=== PATIENT | female | born 1940 | race Caucasian/White ===

== ENCOUNTER 2022-08-20 08:05 | Inpatient (IN) | payer MEDICARE, SELFPAY ==
[2022-08-20] VITALS (9 sets, daily range): BP systolic 115–152; BP diastolic 38–84; PULSE 94–114; RESP 16–20; TEMP 36.7–38.4; O2SAT 92–97; BMI 30.9
--- NOTE | ~2022-08-20 | CT_ITS ---
EXAMINATION: CT HEAD WITHOUT CONTRAST CLINICAL INFORMATION: Left-sided facial droop. Arm weakness. COMPARISON: None. TECHNIQUE: Contiguous axial imaging was performed from the skull base to vertex without intravenous contrast. This CT examination was performed using dose optimization techniques as appropriate, variously including the following: * Automated exposure control * Adjustment of mA and/or kV according to patient size (this includes techniques or standardized protocols for targeted exams where dose is matched to indication/reason for exam; i.e. extremities or head) Use of iterative reconstruction technique DLP: 714 mGy-cm. FINDINGS: There is no evidence of acute intracranial hemorrhage or territorial infarction. No abnormal mass effect or midline shift is seen. Doll to white matter differentiation is well preserved. No extra-axial fluid collections are identified. No hydrocephalus. Proportional prominence of the ventricles and sulcal spaces is consistent with moderate volume loss. Patchy periventricular and deep white matter hypoattenuation is consistent with mild small vessel ischemic changes. The osseous structures and soft tissues are normal. The mastoid air cells and visualized portions of the paranasal sinuses are well aerated. CT/CT head for stroke IMPRESSION: No acute intracranial pathology. This critical result was discussed with RITA Tripathi by telephone at 08/20/2022 8:26 AM and it was ascertained that the content and urgency of the report was understood at the time of direct communication.
--- NOTE | ~2022-08-20 | XR_ITS ---
EXAMINATION: XR CHEST CLINICAL INFORMATION: Stroke symptoms COMPARISON: None TECHNIQUE: Frontal view of the chest was obtained. FINDINGS: Cardiac leads overlie the chest. The lungs are well expanded. No consolidation, edema, or effusion. No pneumothorax. The cardiomediastinal silhouette is normal in size, with a calcified aorta. XR/XR chest 1V IMPRESSION: No acute pulmonary disease.
--- NOTE | ~2022-08-20 | XR_ITS ---
EXAMINATION: XR CHEST CLINICAL INFORMATION: Fever and dyspnea COMPARISON: Previous day TECHNIQUE: Frontal view of the chest was obtained. FINDINGS: Normal symmetric lung volumes. No parenchymal consolidation. No pleural effusion. No pneumothorax. Cardiomediastinal silhouette and pulmonary vascularity are within normal limits. Aorta is atherosclerotic. No acute osseous abnormalities. XR/XR chest 1V IMPRESSION: No acute findings
--- NOTE | 2022-08-20 08:07 | ECG_ITS ---
Test Reason : STROKE/ ALTERED MENTAL Blood Pressure : / mmHG Vent. Rate : 105 BPM Atrial Rate : 105 BPM P-R Int : 122 ms QRS Dur : 074 ms QT Int : 336 ms P-R-T Axes : 063 033 005 degrees QTc Int : 444 ms Poor data quality Sinus tachycardia RSR' or QR pattern in V1 suggests right ventricular conduction delay ST & T wave abnormality, consider inferior ischemia Abnormal ECG No previous ECGs available Referred By: Trinidad Horn Electronically Signed By:NUHA RASHID MD
--- NOTE | 2022-08-20 08:15 | ED_ITS ---
HPI - Neuro Symptoms/Deficit General Chief Complaint: Stroke Stated Complaint: STROKE ALERT,CONF,L WEAK,DROOP,FAST2,[id number],-THIN Source: EMS Mode of arrival: EMS Limitations: physical limitation History of Present Illness HPI Narrative: 82 yo female with dementia, HTN, hypothyroidism brought from home with c/o going to bed okay at 10pm then upon waking told EMS she was not herself and felt her L side of face was drooped with L sided arm weakness. Patient cannot otherwise give a history. daughter was able to tell us that mike's boyfriend states she was weak and almost fell over as well 2 covid shots in 2020 no booster Onset (ago): unknown Last Observed Normal: 22:00 Timing confirmed by: family member Location: left face and left arm History of same: No Severity: mild Quality: weak Relieving factors: none Exacerbating factors: none Context: gradual onset On Anticoagulants: No Associated symptoms: malaise and weakness Treatments Prior to Arrival: none Related Data Allergies Allergy/AdvReac Type Severity Reaction Status Date / Time No Known Allergies Allergy Verified 08/20/22 08:51 Review of Systems Review of Systems: ROS unable to be obtained due to altered mental status [facility] Past Medical History Medical History AD (Alzheimer's disease) HTN (hypertension) Hypothyroidism Social History Social History (Updated 08/20/22 @ 08:16 by Trinidad Horn DO) Alcohol intake: never Patient Tobacco Use Status: Tobacco use Unknown Smoked in Last 30 Days: No Use of substances other than those prescribed or required for medical reasons: No Advance Directives: No Physical Exam Vital Signs: Vital Signs: Last Vital Signs Temp 101.0 F H 08/20/22 08:38 Pulse 108 H 08/20/22 10:15 Resp 20 08/20/22 10:15 BP 142/62 H 08/20/22 10:15 Pulse Ox 96 08/20/22 10:15 O2 Del Method 08/20/22 10:15 BMI result Body Mass Index 30.9 Appearance: Alert. Confused, anxious mild No acute distress. Eyes: Pupils equal, round and reactive to light. ENT: Pharynx normal. atraumatic Neck: Normal inspection. Neck supple. CVS: Normal heart rate and rhythm. Pulses normal. Respiratory: No respiratory distress. Breath sounds normal. Abdomen: Soft and nontender. Skin: Skin warm to touch and dry. Normal skin color. Normal skin turgor. Extremities: No lower extremity edema. Neuro: cannot really participate in exam. no obvious facial droop, she is awake but just moaning. she is able to squeeze both hands R 5/5 L 4+/5 LE seem equal otherwise her exam is very unreliable Course Course Course Narrative: COVID + empiric ceftriaxone ordered suspect her presentation due to infection and not stroke MDM - Neuro Symptoms/Deficit MDM Narrative Medical decision making narrative: 82 yo female with hx of dementia, HTN, hypothyroidism here with AMS, possible L sided weakness with last known well at 10pm - given this she is out of the windo w of tPa. She feels hot to the touch so this could be infectious as well. Will need CT head, labs, cultures, CXR and UA. I do not have prior kidney function on her so CTA is pending Cr - LVO seems unlikely given minimal deficits on exam and she is very hard to get to participate so part of her NIH score is due to her dementia and inability to perform neuro exam. Lab Data Result diagrams: 08/20/22 09:00 08/20/22 09:00 Labs: Lab Results 08/20/22 08/20/22 08/20/22 Range/Units 08:31 08:33 09:00 WBC 11.2 H (4.8-10.8) X10*3/uL RBC 4.01 L (4.20-5.50) X10*6/uL Hgb 12.2 (12.0-16.0) g/dl Hct 37.0 (37.0-47.0) % MCV 92.3 (80.0-98.0) fL MCH 30.4 (27.0-33.0) pg MCHC 33.0 (31.0-35.0) g/dl RDW 12.5 (11.0-16.0) % Plt Count 305 (160-400) X10*3/uL MPV 9.6 (9.4-12.3) fL Immature Gran % (Auto) 0.4 (0.0-0.4) % Neut % (Auto) 81.8 H (45-73) % Lymph % (Auto) 7.8 L (20-40) % [place] % (Auto) 8.9 (2-11) % Eos % (Auto) 0.8 (0-4) % Baso % (Auto) 0.3 (0-2) % Lymph # (Auto) 0.9 L (1.2-4.9) X10*3/uL [place] # (Auto) 1.0 (0.1-1.2) X10*3/uL Eos # (Auto) 0.1 (0.0-0.4) X10*3/uL Baso # (Auto) 0.0 (0.0-0.2) X10*3/uL Abs Immat Gran (auto) 0.05 H (0.00-0.03) X10*3/uL Absolute Neuts (auto) 9.2 H (2.0-8.3) x10*3/uL Absolute Nucleated RBC 0.000 (0.0-0.012) X10*3/uL Nucleated RBC % (auto) 0.0 (0.0-0.2) /100WBC PT (10.0-13.1) SEC Whole Blood PT 12.6 (11.1-13.5) sec INR (0.9-1.1) Whole Blood INR 1.1 (0.9-1.1) APTT (26.0-36.4) SEC Sodium (135-145) mmol/L Potassium (3.3-5.1) mmol/L Chloride (96-108) mmol/L Carbon Dioxide (22-29) mmol/L Anion Gap (12-20) BUN (9-16) mg/dL Creatinine (0.5-1.4) mg/dL Estim Creat Clear Calc Estimated GFR POC Glucose 117 H (60-115) mg/dL Random Glucose (60-115) mg/dL Lactic Acid (0.5-2.0) mmol/L Calcium (8.4-10.2) mg/dL Magnesium (1.6-2.6) mg/dL Total Bilirubin (0.0-1.0) mg/dL Direct Bilirubin (0.0-0.5) mg/dL AST (5-31) U/L ALT (0-31) U/L Alkaline Phosphatase (39-117) U/L Total Creatine Kinase (26-140) U/L Troponin I High Sens (<3.5-17.0) ng/L Total Protein (6.5-8.0) g/dL Albumin (3.5-5.0) g/dL Urine Color Urine Appearance Urine pH (5.0-9.0) Ur Specific [place] (1.005-1.025) Urine Protein (Neg-Trace) mg/dL Urine Glucose (UA) (Negative) mg/dL Urine Ketones (Negative) mg/dL Urine Blood (Negative) Urine Nitrite (Negative) Ur Leukocyte Esterase (Negative) COVID-19 ([facility]) (Negative) COVID-19 Clin Com 08/20/22 08/20/22 08/20/22 Range/Units 09:00 09:00 09:00 WBC (4.8-10.8) X10*3/uL RBC (4.20-5.50) X10*6/uL Hgb (12.0-16.0) g/dl Hct (37.0-47.0) % MCV (80.0-98.0) fL MCH (27.0-33.0) pg MCHC (31.0-35.0) g/dl RDW (11.0-16.0) % Plt Count (160-400) X10*3/uL MPV (9.4-12.3) fL Immature Gran % (Auto) (0.0-0.4) % Neut % (Auto) (45-73) % Lymph % (Auto) (20-40) % [place] % (Auto) (2-11) % Eos % (Auto) (0-4) % Baso % (Auto) (0-2) % Lymph # (Auto) (1.2-4.9) X10*3/uL [place] # (Auto) (0.1-1.2) X10*3/uL Eos # (Auto) (0.0-0.4) X10*3/uL Baso # (Auto) (0.0-0.2) X10*3/uL Abs Immat Gran (auto) (0.00-0.03) X10*3/uL Absolute Neuts (auto) (2.0-8.3) x10*3/uL Absolute Nucleated RBC (0.0-0.012) X10*3/uL Nucleated RBC % (auto) (0.0-0.2) /100WBC PT (10.0-13.1) SEC Whole Blood PT (11.1-13.5) sec INR (0.9-1.1) Whole Blood INR (0.9-1.1) APTT (26.0-36.4) SEC Sodium 137 (135-145) mmol/L Potassium 4.0 (3.3-5.1) mmol/L Chloride 99 (96-108) mmol/L Carbon Dioxide 27 (22-29) mmol/L Anion Gap 15 (12-20) BUN 25 H (9-16) mg/dL Creatinine 1.13 (0.5-1.4) mg/dL Estim Creat Clear Calc 36.6 Estimated GFR 46 POC Glucose (60-115) mg/dL Random Glucose 120 H (60-115) mg/dL Lactic Acid (0.5-2.0) mmol/L Calcium 9.6 (8.4-10.2) mg/dL Magnesium 2.0 (1.6-2.6) mg/dL Total Bilirubin 0.4 (0.0-1.0) mg/dL Direct Bilirubin 0.2 (0.0-0.5) mg/dL AST 19 (5-31) U/L ALT 13 (0-31) U/L Alkaline Phosphatase 86 (39-117) U/L Total Creatine Kinase 46 (26-140) U/L Troponin I High Sens 4.5 (<3.5-17.0) ng/L Total Protein 7.9 (6.5-8.0) g/dL Albumin 4.3 (3.5-5.0) g/dL Urine Color Urine Appearance Urine pH (5.0-9.0) Ur Specific [place] (1.005-1.025) Urine Protein (Neg-Trace) mg/dL Urine Glucose (UA) (Negative) mg/dL Urine Ketones (Negative) mg/dL Urine Blood (Negative) Urine Nitrite (Negative) Ur Leukocyte Esterase (Negative) COVID-19 ([facility]) Positive A (Negative) COVID-19 Clin Com See Note 08/20/22 08/20/22 08/20/22 Range/Units 09:00 09:22 10:27 WBC (4.8-10.8) X10*3/uL RBC (4.20-5.50) X10*6/uL Hgb (12.0-16.0) g/dl Hct (37.0-47.0) % MCV (80.0-98.0) fL MCH (27.0-33.0) pg MCHC (31.0-35.0) g/dl RDW (11.0-16.0) % Plt Count (160-400) X10*3/uL MPV (9.4-12.3) fL Immature Gran % (Auto) (0.0-0.4) % Neut % (Auto) (45-73) % Lymph % (Auto) (20-40) % [place] % (Auto) (2-11) % Eos % (Auto) (0-4) % Baso % (Auto) (0-2) % Lymph # (Auto) (1.2-4.9) X10*3/uL [place] # (Auto) (0.1-1.2) X10*3/uL Eos # (Auto) (0.0-0.4) X10*3/uL Baso # (Auto) (0.0-0.2) X10*3/uL Abs Immat Gran (auto) (0.00-0.03) X10*3/uL Absolute Neuts (auto) (2.0-8.3) x10*3/uL Absolute Nucleated RBC (0.0-0.012) X10*3/uL Nucleated RBC % (auto) (0.0-0.2) /100WBC PT 11.0 (10.0-13.1) SEC Whole Blood PT (11.1-13.5) sec INR 1.0 (0.9-1.1) Whole Blood INR (0.9-1.1) APTT 25.5 L (26.0-36.4) SEC Sodium (135-145) mmol/L Potassium (3.3-5.1) mmol/L Chloride (96-108) mmol/L Carbon Dioxide (22-29) mmol/L Anion Gap (12-20) BUN (9-16) mg/dL Creatinine (0.5-1.4) mg/dL Estim Creat Clear Calc Estimated GFR POC Glucose (60-115) mg/dL Random Glucose (60-115) mg/dL Lactic Acid 1.0 (0.5-2.0) mmol/L Calcium (8.4-10.2) mg/dL Magnesium (1.6-2.6) mg/dL Total Bilirubin (0.0-1.0) mg/dL Direct Bilirubin (0.0-0.5) mg/dL AST (5-31) U/L ALT (0-31) U/L Alkaline Phosphatase (39-117) U/L Total Creatine Kinase (26-140) U/L Troponin I High Sens (<3.5-17.0) ng/L Total Protein (6.5-8.0) g/dL Albumin (3.5-5.0) g/dL Urine Color Yellow Urine Appearance Turbid Urine pH 6.5 (5.0-9.0) Ur Specific [place] 1.015 (1.005-1.025) Urine Protein 30 (1+) H (Neg-Trace) mg/dL Urine Glucose (UA) Negative (Negative) mg/dL Urine Ketones Negative (Negative) mg/dL Urine Blood Small (1+) H (Negative) Urine Nitrite Positive H (Negative) Ur Leukocyte Esterase Large (3+) H (Negative) COVID-19 ([facility]) (Negative) COVID-19 Clin Com ECG Data Attestation: I personally reviewed and interpreted this ECG as follows: ECG interpretation date: 08/20/22 ECG interpretation time: 09:13 Interpretation: Rate: 105 Rhythm: sinus tach [place]: normal Normal P waves. Normal CLAU. Normal QRS complex. ST T wave : nonspecific no UDAY artifact noted qTC: normal prior studies: no acute ischemia The study has been interpreted contemporaneously by me. . NIH Stroke Scale Internal: Initial- Upon Arrival Level of Consciousness: Alert Level of Consciousness Questions: Answers neither question correctly Level of Consciousness Commands: Performs one task correctly Best Gaze: Normal Visual: No visual loss Facial Palsy: Normal Motor Arm (Right): No drift Motor Arm (Left): Drift Motor Leg (Right): No drift Motor Leg (Left): No drift Limb Ataxia: Absent Sensory: Normal Best Language: Mild to moderate aphasia Dysarthia: Normal Extinction and Inattention: Visual, tactile, auditory, spatial, or personal inattention Score: 6 Discharge Plan Discharge Clinical Impression: Acute UTI, COVID-19, Acute encephalopathy Fever Qualifiers: Fever type: unspecified Qualified Code(s): R50.9 - Fever, unspecified Patient Disposition: Admitted As Inpatient
[2022-08-20 08:36] LABS: Prothrombin Time Whole Bld POC 12.6 sec (11.1-13.5); ~PT, ~INR - Anti Coag Clinic 1.1 (0.9-1.1)
[2022-08-20 08:37] LABS: Glucose, Whole Blood 117 mg/dL (60-115)
[2022-08-20 09:06] LABS: MANUAL DIFF FLAG NO
[2022-08-20 09:08] LABS: Basophils Percent Auto 0.3 % (0-2); Eosinophils Absolute Auto 0.1 X10*3/uL (0.0-0.4); Eosinophils Percent Auto 0.8 % (0-4); Hemoglobin 12.2 g/dl (12.0-16.0); Imm Gran Abs Auto 0.05 X10*3/uL (0.00-0.03); Imm Gran Pct Auto 0.4 % (0.0-0.4); Lymphocytes Absolute Auto 0.9 X10*3/uL (1.2-4.9); Lymphocytes Percent Auto 7.8 % (20-40); Mean Corpuscular Hemoglobin 30.4 pg (27.0-33.0); Mean Corpuscular Volume 92.3 fL (80.0-98.0); Mean Platelet Volume 9.6 fL (9.4-12.3); Monocytes Percent Auto 8.9 % (2-11); Neutrophils Absolute Auto 9.2 x10*3/uL (2.0-8.3); Neutrophils Percent Auto 81.8 % (45-73); Platelet Count 305 X10*3/uL (160-400); Red Blood Count 4.01 X10*6/uL (4.20-5.50); Red Cell Distribution Width 12.5 % (11.0-16.0); White Blood Count 11.2 X10*3/uL (4.8-10.8)
[2022-08-20 09:17] LABS: COVID-19 Test Positive (Negative); IDNOW Serial# 55D5AD1C; Partial Thromboplastin Time 25.5 SEC (26.0-36.4)
[2022-08-20 09:27] LABS: Alanine Aminotransferase 13 U/L (0-31); Albumin Level 4.3 g/dL (3.5-5.0); Alkaline Phosphatase 86 U/L (39-117); Anion Gap 15 (12-20); Aspartate Amino Transferase 19 U/L (5-31); Bilirubin Direct 0.2 mg/dL (0.0-0.5); Bilirubin Total 0.4 mg/dL (0.0-1.0); Blood Urea Nitrogen 25 mg/dL (9-16); Calcium 9.6 mg/dL (8.4-10.2); Carbon Dioxide 27 mmol/L (22-29); Chloride 99 mmol/L (96-108); Creatinine Clr Calc Pharmacy 36.6; Estimated Glomerular Filt Rate 46; Glucose Random 120 mg/dL (60-115); Sodium 137 mmol/L (135-145); Total Protein 7.9 g/dL (6.5-8.0)
[2022-08-20 09:33] LABS: Troponin-I High Sensitivity 4.5 ng/L (<3.5-17.0)
[2022-08-20] MEDS: Acetaminophen Oral Liquid 650 MG/20.3 ML SOLUTION PO (10:18)
[2022-08-20] MEDS: cefTRIAXone sodium 1 GM in 0.9 % Sodium Chloride 50 ML IV (10:29)
[2022-08-20 11:02] LABS: Appearance Urine Turbid; Color Urine Yellow; Glucose Urine UA Negative (Negative); Leukocyte Esterase Urine Large (3+) (Negative); Nitrite Urine Positive (Negative); PH 6.5 (5.0-9.0); Specific Gravity - Urine 1.015 (1.005-1.025); UMIC TRIGGER UACC YES; Urine Blood Small (1+) (Negative); Urine Ketones Negative (Negative); Urine Protein 30 (1+) mg/dL (Neg-Trace)
[2022-08-20 11:21] LABS: Bacteria Urine 4+ (None Seen); Hyaline Casts Urine 0-2 /LPF (0-2); Squamous Epithelial Cell Urine 0-2 /HPF (0-2); UACC Culture Trigger YES; WBC Urine >50 /HPF (0-5)
[2022-08-20 11:42] LABS: Glucose, Whole Blood 126 mg/dL (60-115)
--- NOTE | 2022-08-20 12:03 | PHA.MEDREC ---
Pharmacy Consult ? Medication Reconciliation Pharmacy has completed the medication reconciliation. Spoke to pt's daughter Brittaney who listed the only two medications she takes.
--- NOTE | 2022-08-20 13:35 | PC.NURSE ---
pt requested to urinate. placed a periwick at the time. pt did not tolerate having the periwick - pulled it out. assisted to bedside commode, pt did well up to commode with 1x assist. per daughter - pt not always able to vocalize when she needs to pee.
--- NOTE | 2022-08-20 13:38 | PM.IMHP ---
History of Present Illness Date of Service: 08/20/22 Attending physician on admission: Katie Yates Chief Complaint: ams, fall 82-year-old female with history of hypertension, hypothyroidism, and advanced dementia without behavioral disturbance brought to the ED early this morning via EMS due to weakness and near fall. The patient daughter who is her healthcare proxy is at bedside and it provides most of the history. The patient was at home this morning with her boyfriend and woke this morning feeling unlike herself. She stated that she felt the left side of her face was drooped with left-sided weakness. However this note was not noted by the patient's boyfriend her daughter who reported that she was weak and nearly fell over. Last known well time was 22:00 last night when she went to bed. Her daughter also states that she has been exhibiting behavioral aggression x3 days which is not her baseline. On arrival to ED, patient was febrile to 101.0 and tachycardic to 110. There is no tachypnea or hypoxia. Head CT negative for any acute intracranial abnormality. Mild leukocytosis of 11.2. Creatinine 1.13, BUN 25 with creatinine clearance 36.6. Electrolytes normal. Troponin 4.5. Urinalysis showed 3+ leukocytes, nitrite positive, 1+ blood, 4+ bacteria. She was also noted to be positive for COVID-19. Chest x-ray unremarkable. Patient is noted to have a slight cough by her daughter but states this is the 1st day. Patient is not the best historian secondary to her dementia but does deny any fevers, chills, sore throat, headache, nasal congestion, abdominal pain, nausea, vomiting, diarrhea, shortness of breath, or chest pain. No dysuria, hematuria, increased urinary frequency, or incontinence. She was not noted to have any focal neural deficits in the ED and there was very low concern for any large vessel occlusion. The patient is vaccinated against COVID-19 x2 but has not received booster. Patient be admitted for treatment of UTI with severe sepsis with metabolic encephalopathy and COVID-19. In the ED, she has been given acetaminophen and 1 g ceftriaxone. Review of Systems Review of Systems: General: No fevers, malaise, unintentional weight loss HEENT: No blurred vision, diplopia. No sore throat, nasal congestion, rhinorrhea, sinus pain, ear pain Cardiovascular: No chest pain, palpitations, or leg edema Respiratory: +cough, No shortness of breath, wheezing GI: No abdominal pain, nausea, vomiting, diarrhea, constipation, melena, hematochezia : No dysuria, hematuria, increased urinary frequency, decreased urinary output MSK: No myalgia, back pain Neuro: + generalized weakness, + balance and coordination issues, +ams. No headaches or lightheadedness Skin: No rashes or lesions [facility] Medical History (Updated 08/20/22 @ 13:47 by RITA Strickland) AD (Alzheimer's disease) HTN (hypertension) Hypothyroidism Family History Mother CAD (coronary artery disease) Father CAD (coronary artery disease) Social History Alcohol intake: never Patient Tobacco Use Status: Tobacco use Unknown Smoked in Last 30 Days: No Use of substances other than those prescribed or required for medical reasons: No Advance Directives: No Meds Allergies Allergy/AdvReac Type Severity Reaction Status Date / Time No Known Allergies Allergy Verified 08/20/22 08:51 Active Medications: Current Medications Pharmacy Consult (Consult Rx Perform Med Rec) 1 each MISCELLANE ONCE PRN PRN Reason: Consult order Home Medications Medication Instructions Recorded Confirmed Last Taken Type amlodipine 5 mg tablet 1 tab PO DAILY 08/20/22 08/20/22 08/19/22 History levothyroxine 100 mcg tablet 1 tab PO DAILY@0600 08/20/22 08/20/22 08/19/22 History Physical Exam Vital Signs and Narrative: Vital Signs: Last Vital Signs Temp 98.1 F 08/20/22 13:34 Pulse 108 H 08/20/22 11:24 Resp 16 08/20/22 11:24 BP 138/70 08/20/22 11:24 Pulse Ox 92 08/20/22 11:24 O2 Del Method 08/20/22 11:24 BMI result Body Mass Index 30.9 Constitutional - Awake and Alert, No apparent distress Eyes - PERRLA, EOMI Cardiovascular - S1S2, RRR, No edema Respiratory - Normal lung expansion, Normal respiratory effort, No respiratory distress, CTA bilaterally Gastrointestinal - NT / ND; +BS; No rebound or guarding - No CVA tenderness Extremities - no calf tenderness bilaterally, no swelling Musculoskeletal - Normal inspection, normal ROM Skin - Warm/Dry Neurological - Alert, aggitated, & oriented to self, CN II-XII in tact, 4/5 strength BUE and BLE Results Labs CBC and Chem 7: 08/20/22 09:00 08/20/22 09:00 Labs: Laboratory Results - last 24 hr 08/20/22 08/20/22 08/20/22 08:31 08:33 09:00 MCV 92.3 MCH 30.4 MCHC 33.0 RDW 12.5 Plt Count 305 MPV 9.6 Immature Gran % (Auto) 0.4 Neut % (Auto) 81.8 H Lymph % (Auto) 7.8 L [place] % (Auto) 8.9 Eos % (Auto) 0.8 Baso % (Auto) 0.3 Lymph # (Auto) 0.9 L [place] # (Auto) 1.0 Eos # (Auto) 0.1 Baso # (Auto) 0.0 Abs Immat Gran (auto) 0.05 H Absolute Neuts (auto) 9.2 H Absolute Nucleated RBC 0.000 Nucleated RBC % (auto) 0.0 PT Whole Blood PT 12.6 INR Whole Blood INR 1.1 APTT Anion Gap Estim Creat Clear Calc Estimated GFR POC Glucose 117 H Random Glucose Lactic Acid Calcium Magnesium Total Bilirubin Direct Bilirubin AST ALT Alkaline Phosphatase Total Creatine Kinase Troponin I High Sens Total Protein Albumin Urine Color Urine Appearance Urine pH Ur Specific [place] Urine Protein Urine Glucose (UA) Urine Ketones Urine Blood Urine Nitrite Ur Leukocyte Esterase Urine RBC Urine WBC Ur Squamous Epith Cells Urine Bacteria Hyaline Casts COVID-19 ([facility]) COVID-19 Clin Com 08/20/22 08/20/22 08/20/22 09:00 09:00 09:00 MCV MCH MCHC RDW Plt Count MPV Immature Gran % (Auto) Neut % (Auto) Lymph % (Auto) [place] % (Auto) Eos % (Auto) Baso % (Auto) Lymph # (Auto) [place] # (Auto) Eos # (Auto) Baso # (Auto) Abs Immat Gran (auto) Absolute Neuts (auto) Absolute Nucleated RBC Nucleated RBC % (auto) PT Whole Blood PT INR Whole Blood INR APTT Anion Gap 15 Estim Creat Clear Calc 36.6 Estimated GFR 46 POC Glucose Random Glucose 120 H Lactic Acid Calcium 9.6 Magnesium 2.0 Total Bilirubin 0.4 Direct Bilirubin 0.2 AST 19 ALT 13 Alkaline Phosphatase 86 Total Creatine Kinase 46 Troponin I High Sens 4.5 Total Protein 7.9 Albumin 4.3 Urine Color Urine Appearance Urine pH Ur Specific [place] Urine Protein Urine Glucose (UA) Urine Ketones Urine Blood Urine Nitrite Ur Leukocyte Esterase Urine RBC Urine WBC Ur Squamous Epith Cells Urine Bacteria Hyaline Casts COVID-19 ([facility]) Positive A COVID-19 Clin Com See Note 08/20/22 08/20/22 08/20/22 09:00 09:22 10:27 MCV MCH MCHC RDW Plt Count MPV Immature Gran % (Auto) Neut % (Auto) Lymph % (Auto) [place] % (Auto) Eos % (Auto) Baso % (Auto) Lymph # (Auto) [place] # (Auto) Eos # (Auto) Baso # (Auto) Abs Immat Gran (auto) Absolute Neuts (auto) Absolute Nucleated RBC Nucleated RBC % (auto) PT 11.0 Whole Blood PT INR 1.0 Whole Blood INR APTT 25.5 L Anion Gap Estim Creat Clear Calc Estimated GFR POC Glucose Random Glucose Lactic Acid 1.0 Calcium Magnesium Total Bilirubin Direct Bilirubin AST ALT Alkaline Phosphatase Total Creatine Kinase Troponin I High Sens Total Protein Albumin Urine Color Yellow Urine Appearance Turbid Urine pH 6.5 Ur Specific [place] 1.015 Urine Protein 30 (1+) H Urine Glucose (UA) Negative Urine Ketones Negative Urine Blood Small (1+) H Urine Nitrite Positive H Ur Leukocyte Esterase Large (3+) H Urine RBC 3-5 H Urine WBC >50 H Ur Squamous Epith Cells 0-2 Urine Bacteria 4+ Hyaline Casts 0-2 COVID-19 ([facility]) COVID-19 Clin Com 08/20/22 11:30 MCV MCH MCHC RDW Plt Count MPV Immature Gran % (Auto) Neut % (Auto) Lymph % (Auto) [place] % (Auto) Eos % (Auto) Baso % (Auto) Lymph # (Auto) [place] # (Auto) Eos # (Auto) Baso # (Auto) Abs Immat Gran (auto) Absolute Neuts (auto) Absolute Nucleated RBC Nucleated RBC % (auto) PT Whole Blood PT INR Whole Blood INR APTT Anion Gap Estim Creat Clear Calc Estimated GFR POC Glucose 126 H Random Glucose Lactic Acid Calcium Magnesium Total Bilirubin Direct Bilirubin AST ALT Alkaline Phosphatase Total Creatine Kinase Troponin I High Sens Total Protein Albumin Urine Color Urine Appearance Urine pH Ur Specific [place] Urine Protein Urine Glucose (UA) Urine Ketones Urine Blood Urine Nitrite Ur Leukocyte Esterase Urine RBC Urine WBC Ur Squamous Epith Cells Urine Bacteria Hyaline Casts COVID-19 ([facility]) COVID-19 Clin Com Imaging Radiologist's Impressions: Impressions Head CT 08/20/22 08:14 IMPRESSION: No acute intracranial pathology. This critical result was discussed with RITA Tripathi by telephone at 08/20/2022 8:26 AM and it was ascertained that the content and urgency of the report was understood at the time of direct communication. Chest X-Ray 08/20/22 09:00 IMPRESSION: No acute pulmonary disease. Assessment and Plan (1) Severe sepsis: Status: Acute (2) Acute UTI: Status: Acute (3) COVID-19: Status: Acute (4) Acute encephalopathy: Status: Acute Plan 82-year-old female with history of hypertension, hypothyroidism, and advanced dementia without behavioral disturbance admitted for UTI with severe sepsis with metabolic encephalopathy and found to have COVID-19. # severe sepsis related to UTI -febrile to 101.1, tachycardic to 110 - patient remains tachycardic despite fever breaking, with AMS. WBC 11.3, lactic acid normal -Treat UTI per below -IVF with NS -admit to telemetry -follow cultures # acute UTI -UA with 3+ leukocytes, 1+ blood, nitrite positive, 4+ bacteria -follow urine culture and blood cultures -continue IV ceftriaxone x7 days -renal function appears stable with creatinine of 1.13, BUN 25, baseline available -monitor I&O -follow BMP -leukocytosis 11.3. Follow CBC # metabolic encephalopathy likely secondary to sepsis and UTI -patient has exhibited increased confusion and aggression from baseline per her daughter ongoing for 2 days -continue IVF as above -monitor mental status -treat infection as above -Eats soft diet at home she is edentulous. Daughter denies any difficulty swallowing. Soft regular diet # COVID-19 -patient with mild symptoms -IV remdesivir not indicated. IV steroids not indicated -symptomatic management with Tylenol p.r.n. for fever, guaifenesin her Tessalon Perles for cough # hypertension-controlled -continue amlodipine # hypothyroidism -continue levothyroxine -TSH level pending # Alzheimer's disease- increased behavioral disturbance from baseline -p.r.n. Zyprexa as needed for agitation/aggression DVT prophylaxis-Lovenox DNR/DNI per her daughter who is her healthcare proxy Patient requires inpatient stay of at least 2 midnights due to acute UTI with severe sepsis with metabolic encephalopathy requiring IV antibiotics, close cardiac monitoring to prevent decompensation into septic shock. Will also require PT evaluation and possible home services versus placement to [facility]. Quality Stroke Does the patient have a stroke diagnosis?: No VTE Prior VTE?: No VTE Risk Level:: Medical - moderate - high VTE Device Contraindication: Treatment Not Indicated VTE Drug Contraindication: N/A - Med Ordered
[2022-08-20] MEDS: 0.9 % Sodium Chloride 1,000 ML 100 ML IVCONT ×2 (13:49→23:17)
[2022-08-20] MEDS: Enoxaparin Sodium 40 MG/0.4 ML SYRINGE SUBCUT (13:54)
[2022-08-20] MEDS: Acetaminophen 325 MG TABLET 650 MG PO (17:28)
--- NOTE | 2022-08-20 17:32 | PC.NURSE ---
pt with increased AMS - closing her R eye, unable to follow commands, increasing restlessness. MD Figueredo made aware, request for rectal tylenol as pt chewing PO tylenol and not able to follow command to swallow pill and drink water. chnage to orders made. will continue to monitor.m
--- NOTE | 2022-08-20 17:40 | PM.EVENT ---
Event Note Date of Service: 08/20/22 Event Note: Message received from nursing staff and patient has rectal temp of 101.2 degrees with increased weakness and altered mental status very restless. Ceftriaxone changed to Zosyn to cover for resistant bacteria and 975 mg Tylenol [place] are ordered. She is NPO for now. Patient has been urinating in commode.
[2022-08-20] MEDS: Acetaminophen Supp 325 MG SUPP.RECT 975 MG PR (19:23)
[2022-08-20] MEDS: Piperacillin Sodium/Tazobactam 2.25 GM in 0.9 % Sodium Chloride 50 ML IV (19:24)
--- NOTE | 2022-08-20 19:41 | PC.NURSE ---
assumed care of patient at 1900. introduced self to patient and pt daughter. patient laying on stretcher, warm to touch, mumbling and groaning but not making sense. dementia at baseline but very altered per daughter. tylenol rectal given to patient per provider orders because per previous RN, patient did not receive po tylenol due to chewing it and spitting it up. patient npo because of this inability to properly chew and swallow. pt on monitor technician, antibiotic started. pt repositioned in bed, call maurer within reach. will continue to monitor
--- NOTE | 2022-08-20 20:40 | PC.NURSE ---
pt was inc of urine ,jose de jesus care given purewick in place ,pt is very restless .
[2022-08-20] MEDS: Benzonatate 100 MG CAPSULE PO (21:20)
--- NOTE | 2022-08-20 22:13 | MHC.CM.PN ---
Addendum entered by Ayse Wallace 08/20/22 22:16: Brittaney Crane [phone]. No HCP on file. Original Note: Attempted to meet with patient, however patient sleeping with telesitter. HX advanced dementia. CM will need to speak with Brittaney Roberts in the morning to completed CM assessment. CM did not call daughter due to lateness of the hour. CM to follow for d/c needs.
[2022-08-20] MEDS: traZODone HCL 50 MG TABLET PO (23:32)
--- NOTE | 2022-08-20 23:33 | PC.NURSE ---
pt given po trazodone per daughters request. patient antsy, restless and unable t sleep. Hospitalist Roxana notified and trazodone ordered. patient took this pill po with no issues. iv fluids running. camera in room. will continue to monitor.
[2022-08-21 00:31] VITALS: BP 106/42; PULSE 74; RESP 15; TEMP 38.1; O2SAT 97
--- NOTE | 2022-08-21 00:44 | PC.NURSE ---
Patient incontinent of small smear of stool. Karen care provided, bed linens changed, and rectal temperature checked 100.5 (downtrending from prior tmax, will give tylenol when due at 0123). Patient boosted and repositioned in stretcher. She is confused, unable to follow commands or answer questions appropriately.
[2022-08-21] MEDS: Piperacillin Sodium/Tazobactam 2.25 GM in 0.9 % Sodium Chloride 50 ML IV ×4 (01:06→21:50)
[2022-08-21] MEDS: Acetaminophen 325 MG TABLET 650 MG PO (01:45)
[2022-08-21] MEDS: Levothyroxine Sodium 100 MCG TABLET PO (05:04)
[2022-08-21 07:20] LABS: Basophils Percent Auto 0.4 % (0-2); Hematocrit 32.3 % (37.0-47.0); Hemoglobin 10.5 g/dl (12.0-16.0); Imm Gran Abs Auto 0.02 X10*3/uL (0.00-0.03); Imm Gran Pct Auto 0.4 % (0.0-0.4); Lymphocytes Absolute Auto 1.1 X10*3/uL (1.2-4.9); MANUAL DIFF FLAG SCAN; Mean Corpuscular HGB Conc 32.5 g/dl (31.0-35.0); Mean Corpuscular Hemoglobin 30.4 pg (27.0-33.0); Mean Corpuscular Volume 93.6 fL (80.0-98.0); Mean Platelet Volume 9.4 fL (9.4-12.3); Monocytes Absolute Auto 1.4 X10*3/uL (0.1-1.2); Monocytes Percent Auto 26.9 % (2-11); Neutrophils Absolute Auto 2.5 x10*3/uL (2.0-8.3); Neutrophils Percent Auto 50.3 % (45-73); Platelet Count 237 X10*3/uL (160-400); Red Blood Count 3.45 X10*6/uL (4.20-5.50); Red Cell Distribution Width 13.1 % (11.0-16.0); SCAN SMEAR FLAG 1; White Blood Count 5.1 X10*3/uL (4.8-10.8)
[2022-08-21 07:34] VITALS: BP 106/42; PULSE 74; O2SAT 97
[2022-08-21 07:37] LABS: Anion Gap 13 (12-20); Blood Urea Nitrogen 23 mg/dL (9-16); Calcium 8.3 mg/dL (8.4-10.2); Carbon Dioxide 23 mmol/L (22-29); Chloride 106 mmol/L (96-108); Estimated Glomerular Filt Rate 53; Glucose Random 95 mg/dL (60-115); Potassium 4.2 mmol/L (3.3-5.1); Sodium 138 mmol/L (135-145)
[2022-08-21 07:57] VITALS: BP 124/56; PULSE 65; RESP 19; TEMP 36.2; O2SAT 94
[2022-08-21 08:08] LABS: SLIDE REVIEW VERIFIED
--- NOTE | 2022-08-21 09:08 | PC.NURSE ---
8am meds are late due to the PICS isnt pulling her name or meds over, IT and registration aware. Kateryna also aware
[2022-08-21] MEDS: amLODIPine Besylate 5 MG TABLET PO (09:42)
--- NOTE | 2022-08-21 12:29 | PC.NURSE ---
had to stop antibiotic as IV was leaking at 1002am. pharmacy is aware and once new IV line is in this RN will call pharmacy again and they will reorder with new times
--- NOTE | 2022-08-21 13:18 | HO.PM.IMPN ---
Subjective Subjective Date of Service: 08/21/22 Interval History: the patient was seen and evaluated this morning Laying in bed, more alert and interactive but with stuttering and mildly restless Of had fever overnight, better this morning No reported other overnight events. Systemic review: Reporting generalized weakness No chest pain, palpitation No shortness of breath or coughing No abdominal pain, nausea or vomiting No urinary symptoms No reported rash Physical Exam Vital Signs: Vital Signs: Last Vital Signs Temp 97.2 F 08/21/22 07:57 Pulse 65 08/21/22 07:57 Resp 19 08/21/22 07:57 BP 124/56 L 08/21/22 07:57 Pulse Ox 94 08/21/22 07:57 O2 Del Method 08/21/22 07:57 BMI result Body Mass Index 30.9 Const: Other: Constitutional : Awake, interactive, in mild distress Neck : Normal inspection, Supple Cardiovascular : RRR, no JVP, no lower extremity edema Respiratory : good bilateral air entry, no crackles, wheezes or rhonchi Gastrointestinal: soft, lax, Normal bowel sounds, Non tender Skin : Warm, Dry Neurological : Alert & oriented to self and place, No focal deficit Objective Data Active Medications Acetaminophen (Acetaminophen Oral Liquid 650 Mg/20.3 Ml Solution) 650 mg PO Q6H PRN PRN Reason: Fever Amlodipine Besylate (Amlodipine Besylate 5 Mg Tablet) 5 mg PO DAILY [facility]; Protocol Last Admin: 08/21/22 09:42 Dose: 5 mg Documented By: CESAR Benzonatate (Benzonatate 100 Mg Capsule) 100 mg PO TID PRN PRN Reason: Cough Last Admin: 08/20/22 21:20 Dose: 100 mg Documented By: JUAN Docusate Sodium (Docusate Sodium 100 Mg Capsule) 100 mg PO DAILY PRN PRN Reason: Constipation Enoxaparin Sodium (Enoxaparin Sodium 40 Mg/0.4 Ml Syringe) 40 mg SUBCUT Q24H [facility] Last Admin: 08/20/22 13:54 Dose: 40 mg Documented By: GERMAN Guaifenesin (Guaifenesin 200 Mg/10 Ml 10 Ml Liquid) 10 ml PO Q6H PRN PRN Reason: cough Sodium Chloride (Ns) 1,000 mls @ 100 mls/hr IVCONT .Q10H [facility] Last Admin: 08/20/22 23:17 Dose: 100 mls/hr Documented By: CALIN Piperacillin Sod/Tazobactam (Sod 2.25 gm/ Sodium Chloride) 50 mls @ 100 mls/hr IV Q6H [facility] Levothyroxine Sodium (Levothyroxine Sodium 100 Mcg Tablet) 100 mcg PO DAILY@0600 [facility] Last Admin: 08/21/22 05:04 Dose: 100 mcg Documented By: JOSUÉ Ondansetron HCl (Ondansetron Hcl 4 Mg/2 Ml Vial) 4 mg IVPUSH Q8H PRN PRN Reason: Nausea and Vomiting Pharmacy Consult (Consult Rx Perform Med Rec) 1 each MISCELLANE ONCE PRN PRN Reason: Consult order Sodium Chloride (0.9 % Sodium Chloride Flush 3 Ml Syringe) 3 ml IVFLUSH QSHIFT [facility] Last Admin: 08/21/22 09:41 Dose: Not Given Documented By: CESAR Non-Admin Reason: IV Running Labs CBC & Chem 7: 08/21/22 07:14 08/21/22 07:14 Labs: Laboratory Results - last 24 hr 08/20/22 08/21/22 08/21/22 09:00 07:14 07:14 MCV 93.6 MCH 30.4 MCHC 32.5 RDW 13.1 Plt Count 237 MPV 9.4 Immature Gran % (Auto) 0.4 Neut % (Auto) 50.3 Lymph % (Auto) 22.0 Yell % (Auto) 26.9 H Eos % (Auto) 0.0 Baso % (Auto) 0.4 Lymph # (Auto) 1.1 L Yell # (Auto) 1.4 H Eos # (Auto) 0.0 Baso # (Auto) 0.0 Abs Immat Gran (auto) 0.02 Absolute Neuts (auto) 2.5 Absolute Nucleated RBC 0.000 Nucleated RBC % (auto) 0.0 Smear Tech's Comments VERIFIED Anion Gap 13 Estim Creat Clear Calc 41.0 Estimated GFR 53 Random Glucose 95 Calcium 8.3 L D TSH 2.20 Microbiology Microbiology Results: Microbiology 08/20/22 00:00 Urine Culture - Preliminary Urine clean catch - Urine clark top Gram negative alex 08/20/22 09:00 Blood Culture - Preliminary Blood - Venous No growth after 24 hours. 08/20/22 09:00 Blood Culture - Preliminary Blood - Venous No growth after 24 hours. Assessment and Plan (1) Severe sepsis: Status: Acute (2) Acute UTI: Status: Acute (3) COVID-19: Status: Acute (4) Swallowing difficulty: Status: Acute Plan 82-year-old female with history of hypertension, hypothyroidism, and advanced dementia without behavioral disturbance admitted for UTI with severe sepsis with metabolic encephalopathy and found to have COVID-19. # severe sepsis related to UTI Sepsis resolved Discontinue IVF Pending final cultures Continue Zosyn # metabolic encephalopathy likely secondary to sepsis and UTI Improved confusion and aggression overnight treat infection as above with recurrent reorientation # swallowing problem Eats soft diet at home she is edentulous. Daughter denies any difficulty swallowing. Soft regular diet To do speech therapy eval # COVID-19 patient with mild symptoms Tylenol p.r.n. for fever, guaifenesin her Tessalon Perles for cough # hypertension-controlled continue amlodipine # hypothyroidism continue levothyroxine # Alzheimer's disease increased behavioral disturbance from baseline p.r.n. Zyprexa as needed for agitation/aggression DVT prophylaxis Lovenox DNR/DNI per her daughter who is her healthcare proxy Patient requires inpatient stay of overnight due to acute UTI with severe sepsis with metabolic encephalopathy pending final blood cultures requiring IV antibiotics. Will also require PT evaluation prior to discharge for safe discharge planning. Quality Stroke Does the patient have a stroke diagnosis?: No VTE Prior VTE?: No VTE Risk Level:: Medical - moderate - high VTE Device Contraindication: Treatment Not Indicated VTE Drug Contraindication: N/A - Med Ordered
[2022-08-21] MEDS: Acetaminophen Oral Liquid 650 MG/20.3 ML SOLUTION PO (13:49)
[2022-08-21] MEDS: Enoxaparin Sodium 40 MG/0.4 ML SYRINGE SUBCUT (13:51)
[2022-08-21 14:41] VITALS: BP 119/51; PULSE 103; RESP 19; TEMP 38.6; O2SAT 97
--- NOTE | 2022-08-21 14:50 | MHC.SLORD ---
Addendum entered and electronically signed by Yamilka Ward MA, CCC-PHYSICAL THERAPY AIDES TEACHER 08/21/22 16:59: D.S. Original Note: Speech Language Pathology Order Status: Pt was listed as NPO when swallow eval was placed, diet orderchanged to puree solids (NDD1) and thin liquids before evaluation. PHYSICAL THERAPY AIDES TEACHER attempted to see pt for bedside swallow evaluation this afternoon. Pt was asleep upon arrival with daughter at bedside. Pt's daughter reports that she gets like this whenever she has a fever and is unable to eat d/t lethargic state. Pt appeared alert briefly to verbal stimuli the light in the room. Pt quickly shut eyes again. Pt did not follow commands for oral mech, did not open mouth when presented with dry swab. Pt was given moisturizer on lips. Pt not appropriate for PO trials d/t lethargic state, lack of response to clinician. PHYSICAL THERAPY AIDES TEACHER will continue to follow.
[2022-08-21] MEDS: Dextrose 5 % and Lactated Ring 1,000 ML 80 ML IVCONT (15:36)
[2022-08-21] MEDS: 0.9 % Sodium Chloride Flush 3 ML SYRINGE IVFLUSH (16:03)
[2022-08-21 17:28] VITALS: TEMP 37.3
--- NOTE | 2022-08-21 18:23 | MHC.CM.PN ---
Addendum entered by Ayse Wallace 08/21/22 18:51: No referrals placed at this time pending pt ability to participate in PT assessment. Original Note: IMM 08/21. Reviewed IMM with daughter/HCP #1 Brittaney Roberts ([phone]), as patient is impaired. HCP#2 Byron Harrington ([phone]). HCP not on file. Brittaney states HCP at Dr. Batista's office. Office currently closed. Pt lives with her S.O. Akhil Washburn. Daughters help. Walker, no services. Pfizer x2. No booster. Pt will need PT evaluation when mentation clearer. D/C plan: STR vs home with 24/7 care. CM will follow for d/c planning.
[2022-08-21] MEDS: traZODone HCL 50 MG TABLET PO (19:59)
[2022-08-21 21:08] VITALS: TEMP 37.3
[2022-08-22] VITALS (8 sets, daily range): BP systolic 111–128; BP diastolic 48–90; PULSE 62–78; RESP 12–18; TEMP 36–36.9; O2SAT 90–97; BMI 30.9
[2022-08-22] MEDS: Piperacillin Sodium/Tazobactam 2.25 GM in 0.9 % Sodium Chloride 50 ML IV (03:21)
[2022-08-22] MEDS: Dextrose 5 % and Lactated Ring 1,000 ML 80 ML IVCONT (03:21)
[2022-08-22] MEDS: Acetaminophen Oral Liquid 650 MG/20.3 ML SOLUTION PO ×3 (04:47→18:25)
[2022-08-22] MEDS: Levothyroxine Sodium 100 MCG TABLET PO (05:05)
[2022-08-22 07:04] LABS: Basophils Percent Auto 0.4 % (0-2); Eosinophils Absolute Auto 0.1 X10*3/uL (0.0-0.4); Eosinophils Percent Auto 1.6 % (0-4); Hematocrit 29.2 % (37.0-47.0); Hemoglobin 9.6 g/dl (12.0-16.0); Imm Gran Abs Auto 0.03 X10*3/uL (0.00-0.03); Imm Gran Pct Auto 0.5 % (0.0-0.4); Lymphocytes Absolute Auto 1.3 X10*3/uL (1.2-4.9); MANUAL DIFF FLAG SCAN; Mean Corpuscular HGB Conc 32.9 g/dl (31.0-35.0); Mean Corpuscular Hemoglobin 30.4 pg (27.0-33.0); Mean Corpuscular Volume 92.4 fL (80.0-98.0); Mean Platelet Volume 9.9 fL (9.4-12.3); Monocytes Absolute Auto 1.2 X10*3/uL (0.1-1.2); Monocytes Percent Auto 21.8 % (2-11); Neutrophils Percent Auto 52.7 % (45-73); Platelet Count 227 X10*3/uL (160-400); Red Blood Count 3.16 X10*6/uL (4.20-5.50); Red Cell Distribution Width 13.2 % (11.0-16.0); SCAN SMEAR FLAG 1; White Blood Count 5.6 X10*3/uL (4.8-10.8)
[2022-08-22 07:09] LABS: Anion Gap 12 (12-20); Blood Urea Nitrogen 19 mg/dL (9-16); Carbon Dioxide 24 mmol/L (22-29); Chloride 104 mmol/L (96-108); Creatinine Clr Calc Pharmacy 49.8; Estimated Glomerular Filt Rate > 60; Glucose Random 138 mg/dL (60-115); Potassium 3.5 mmol/L (3.3-5.1); Sodium 136 mmol/L (135-145)
[2022-08-22 07:39] LABS: SLIDE REVIEW VERIFIED
[2022-08-22 07:44] LABS: Glucose, Whole Blood 135 mg/dL (60-115)
[2022-08-22] MEDS: amLODIPine Besylate 5 MG TABLET PO (10:07)
--- NOTE | 2022-08-22 12:43 | P.PNIM_ITS ---
Subjective Subjective Date of Service: 08/22/22 Interval History: the patient was seen and evaluated this morning more alert and interactive , asking for food No fever overnight, better this morning No reported other overnight events. Systemic review: Reporting generalized weakness No chest pain, palpitation No shortness of breath or coughing No abdominal pain, nausea or vomiting No urinary symptoms No reported rash Physical Exam Vital Signs: Vital Signs: Last Vital Signs Temp 97.3 F 08/22/22 08:00 Pulse 65 08/22/22 08:00 Resp 12 08/22/22 08:00 BP 123/57 L 08/22/22 08:00 Pulse Ox 91 L 08/22/22 08:00 O2 Del Method 08/22/22 08:00 O2 Flow Rate 3 08/22/22 07:15 BMI result Body Mass Index 30.9 Const: Other: Constitutional : Awake, interactive,not in distress Neck : Normal inspection, Supple Cardiovascular : RRR, no JVP, no lower extremity edema Respiratory : good bilateral air entry, no crackles, wheezes or rhonchi Gastrointestinal: soft, lax, Normal bowel sounds, Non tender Skin : Warm, Dry Neurological : Alert & oriented to self and place, No focal deficit Objective Data Active Medications Acetaminophen (Acetaminophen Oral Liquid 650 Mg/20.3 Ml Solution) 650 mg PO Q6H PRN PRN Reason: Fever Last Admin: 08/22/22 11:03 Dose: 650 mg Documented By: CHENCHO Acetaminophen (Acetaminophen Supp 650 Mg Supp.Rect) 650 mg SC Q6H PRN PRN Reason: Fever Amlodipine Besylate (Amlodipine Besylate 5 Mg Tablet) 5 mg PO DAILY [facility]; Protocol Last Admin: 08/22/22 10:07 Dose: 5 mg Documented By: CHENCHO Benzonatate (Benzonatate 100 Mg Capsule) 100 mg PO TID PRN PRN Reason: Cough Last Admin: 08/20/22 21:20 Dose: 100 mg Documented By: JUAN Docusate Sodium (Docusate Sodium 100 Mg Capsule) 100 mg PO DAILY PRN PRN Reason: Constipation Enoxaparin Sodium (Enoxaparin Sodium 40 Mg/0.4 Ml Syringe) 40 mg SUBCUT Q24H S Last Admin: 08/21/22 13:51 Dose: 40 mg Documented By: LALA Guaifenesin (Guaifenesin 200 Mg/10 Ml 10 Ml Liquid) 10 ml PO Q6H PRN PRN Reason: cough Dextrose/Lactated Ringer's (D5lr) 1,000 mls @ 80 mls/hr IVCONT .[id number] [facility] Last Admin: 08/22/22 03:21 Dose: 80 mls/hr Documented By: MARIAM Ceftriaxone Sodium 1 gm/ (Sodium Chloride) 50 mls @ 100 mls/hr IV Q24H [facility] Levothyroxine Sodium (Levothyroxine Sodium 100 Mcg Tablet) 100 mcg PO DAILY@0600 [facility] Last Admin: 08/22/22 05:05 Dose: 100 mcg Documented By: MARIAM Ondansetron HCl (Ondansetron Hcl 4 Mg/2 Ml Vial) 4 mg IVPUSH Q8H PRN PRN Reason: Nausea and Vomiting Pharmacy Consult (Consult Rx Perform Med Rec) 1 each MISCELLANE ONCE PRN PRN Reason: Consult order Sodium Chloride (0.9 % Sodium Chloride Flush 3 Ml Syringe) 3 ml IVFLUSH QSHIFT [facility] Last Admin: 08/22/22 10:12 Dose: Not Given Documented By: CTORRSamantha Non-Admin Reason: No Access Labs CBC & Chem 7: 08/22/22 06:38 08/22/22 06:38 Labs: Laboratory Results - last 24 hr 08/22/22 08/22/22 08/22/22 06:38 06:38 06:38 MCV Cancelled 92.4 MCH Cancelled 30.4 MCHC Cancelled 32.9 RDW Cancelled 13.2 Plt Count Cancelled 227 MPV Cancelled 9.9 Immature Gran % (Auto) 0.5 H Neut % (Auto) 52.7 Lymph % (Auto) 23.0 [place] % (Auto) 21.8 H Eos % (Auto) 1.6 Baso % (Auto) 0.4 Lymph # (Auto) 1.3 [place] # (Auto) 1.2 Eos # (Auto) 0.1 Baso # (Auto) 0.0 Abs Immat Gran (auto) 0.03 Absolute Neuts (auto) 3.0 Absolute Nucleated RBC Cancelled 0.000 Nucleated RBC % (auto) Cancelled 0.0 Smear Tech's Comments VERIFIED Anion Gap Cancelled Estim Creat Clear Calc Cancelled Estimated GFR Cancelled POC Glucose Random Glucose Cancelled Calcium Cancelled 08/22/22 08/22/22 06:38 07:39 MCV MCH MCHC RDW Plt Count MPV Immature Gran % (Auto) Neut % (Auto) Lymph % (Auto) [place] % (Auto) Eos % (Auto) Baso % (Auto) Lymph # (Auto) [place] # (Auto) Eos # (Auto) Baso # (Auto) Abs Immat Gran (auto) Absolute Neuts (auto) Absolute Nucleated RBC Nucleated RBC % (auto) Smear Tech's Comments Anion Gap 12 Estim Creat Clear Calc 49.8 Estimated GFR > 60 POC Glucose 135 H Random Glucose 138 H Calcium 8.0 L Microbiology Microbiology Results: Microbiology 08/20/22 09:00 Blood Culture - Preliminary Blood - Venous No growth after 48 hours. 08/20/22 09:00 Blood Culture - Preliminary Blood - Venous No growth after 48 hours. 08/20/22 00:00 Urine Culture - Final Urine clean catch - Urine clark top Escherichia coli Assessment and Plan (1) Swallowing difficulty: Status: Acute (2) COVID-19: Status: Acute (3) Acute UTI: Status: Acute (4) Acute encephalopathy: Status: Acute Plan 82-year-old female with history of hypertension, hypothyroidism, and advanced dementia without behavioral disturbance admitted for UTI with severe sepsis with metabolic encephalopathy and found to have COVID-19. # severe sepsis related to UTI Sepsis resolved Discontinue IVF Urine Cx growing EColi DC Zosyn, start Ceftriaxone # metabolic encephalopathy likely secondary to Covid and UTI Improving treat infection as above with recurrent reorientation # swallowing problem Eats soft diet at home speech therapy eval Pureed diet for now # COVID-19 patient with mild symptoms Tylenol p.r.n. for fever, guaifenesin her Tessalon Perles for cough # hypertension-controlled continue amlodipine # hypothyroidism continue levothyroxine # Alzheimer's disease increased behavioral disturbance from baseline p.r.n. Zyprexa as needed for agitation/aggression DVT prophylaxis Lovenox DNR/DNI per her daughter who is her healthcare proxy Patient requires inpatient stay of overnight due to UTI with metabolic encephalopathy requiring IV antibiotics. repeat PT eval, pending improvement in mentation prior to discharge for safe discharge planning. Quality Stroke Does the patient have a stroke diagnosis?: No VTE Prior VTE?: No VTE Risk Level:: Medical - moderate - high VTE Device Contraindication: Treatment Not Indicated VTE Drug Contraindication: N/A - Med Ordered
[2022-08-22] MEDS: Enoxaparin Sodium 40 MG/0.4 ML SYRINGE SUBCUT (15:23)
[2022-08-22] MEDS: QUEtiapine Fumarate 25 MG TABLET PO (18:25)
[2022-08-22] MEDS: 0.9 % Sodium Chloride Flush 3 ML SYRINGE IVFLUSH (19:49)
[2022-08-23 02:29] VITALS: BP 123/58; PULSE 72; RESP 18; TEMP 36.9; O2SAT 94
[2022-08-23] MEDS: Levothyroxine Sodium 100 MCG TABLET PO (06:30)
[2022-08-23 07:43] LABS: Hematocrit 33.3 % (37.0-47.0); Hemoglobin 10.9 g/dl (12.0-16.0); Mean Corpuscular HGB Conc 32.7 g/dl (31.0-35.0); Mean Corpuscular Hemoglobin 30.4 pg (27.0-33.0); Mean Corpuscular Volume 92.8 fL (80.0-98.0); Mean Platelet Volume 9.9 fL (9.4-12.3); Platelet Count 256 X10*3/uL (160-400); Red Blood Count 3.59 X10*6/uL (4.20-5.50); Red Cell Distribution Width 13.1 % (11.0-16.0); White Blood Count 5.8 X10*3/uL (4.8-10.8)
[2022-08-23 08:00] VITALS: BP 148/70; PULSE 80; RESP 20; TEMP 36.7; O2SAT 93
[2022-08-23 08:02] LABS: Anion Gap 12 (12-20); Blood Urea Nitrogen 11 mg/dL (9-16); Calcium 8.4 mg/dL (8.4-10.2); Carbon Dioxide 28 mmol/L (22-29); Chloride 103 mmol/L (96-108); Estimated Glomerular Filt Rate > 60; Glucose Random 92 mg/dL (60-115); Potassium 4.2 mmol/L (3.3-5.1); Sodium 139 mmol/L (135-145)
[2022-08-23] MEDS: amLODIPine Besylate 5 MG TABLET PO (10:12)
[2022-08-23] MEDS: polyethylene glycoL 3350 17 GM POWD.PACK PO (10:12)
[2022-08-23 11:41] VITALS: BP 137/65; PULSE 83; RESP 20; TEMP 36.8; O2SAT 94
[2022-08-23] MEDS: Enoxaparin Sodium 40 MG/0.4 ML SYRINGE SUBCUT (12:19)
--- NOTE | 2022-08-23 12:22 | HO.PM.IMPN ---
Subjective Subjective Date of Service: 08/23/22 Interval History: the patient was seen and evaluated this morning more alert and interactive , very weak to ambulate had sundowning last night No reported other overnight events. Systemic review: Reporting generalized weakness No chest pain, palpitation No shortness of breath or coughing No abdominal pain, nausea or vomiting No urinary symptoms No reported rash Physical Exam Vital Signs: Vital Signs: Last Vital Signs Temp 98.3 F 08/23/22 11:41 Pulse 83 08/23/22 11:41 Resp 20 08/23/22 11:41 BP 137/65 08/23/22 11:41 Pulse Ox 94 08/23/22 11:41 O2 Del Method 08/23/22 11:41 O2 Flow Rate 3 08/22/22 07:15 BMI result Body Mass Index 30.9 Const: Other: Constitutional : Awake, interactive,not in distress Neck : Normal inspection, Supple Cardiovascular : RRR, no JVP, no lower extremity edema Respiratory : good bilateral air entry, no crackles, wheezes or rhonchi Gastrointestinal: soft, lax, Normal bowel sounds, Non tender Skin : Warm, Dry Neurological : Alert & oriented to self and place, No focal deficit Objective Data Active Medications Acetaminophen (Acetaminophen Oral Liquid 650 Mg/20.3 Ml Solution) 650 mg PO Q6H PRN PRN Reason: Fever Last Admin: 08/22/22 18:25 Dose: 650 mg Documented By: CHENCHO Acetaminophen (Acetaminophen Supp 650 Mg Supp.Rect) 650 mg MA Q6H PRN PRN Reason: Fever Amlodipine Besylate (Amlodipine Besylate 5 Mg Tablet) 5 mg PO DAILY [facility]; Protocol Last Admin: 08/23/22 10:12 Dose: 5 mg Documented By: CHENCHO Benzonatate (Benzonatate 100 Mg Capsule) 100 mg PO TID PRN PRN Reason: Cough Last Admin: 08/20/22 21:20 Dose: 100 mg Documented By: JUAN Cefuroxime Axetil (Cefuroxime Axetil 500 Mg Tablet) 500 mg PO BID [facility] Last Admin: 08/23/22 10:12 Dose: 500 mg Documented By: CHENCHO Docusate Sodium (Docusate Sodium 100 Mg Capsule) 100 mg PO DAILY PRN PRN Reason: Constipation Enoxaparin Sodium (Enoxaparin Sodium 40 Mg/0.4 Ml Syringe) 40 mg SUBCUT Q24H [facility] Last Admin: 08/22/22 15:23 Dose: 40 mg Documented By: CHENCHO Guaifenesin (Guaifenesin 200 Mg/10 Ml 10 Ml Liquid) 10 ml PO Q6H PRN PRN Reason: cough Levothyroxine Sodium (Levothyroxine Sodium 100 Mcg Tablet) 100 mcg PO DAILY@0600 [facility] Last Admin: 08/23/22 06:30 Dose: 100 mcg Documented By: REYMUNDO Ondansetron HCl (Ondansetron Hcl 4 Mg/2 Ml Vial) 4 mg IVPUSH Q8H PRN PRN Reason: Nausea and Vomiting Pharmacy Consult (Consult Rx Perform Med Rec) 1 each MISCELLANE ONCE PRN PRN Reason: Consult order Polyethylene Glycol (Polyethylene Glycol 3350 17 Gm Powd.Pack) 17 gm PO DAILY [facility] Last Admin: 08/23/22 10:12 Dose: 17 gm Documented By: CHENCHO Quetiapine Fumarate (Quetiapine Fumarate 25 Mg Tablet) 25 mg PO ONCE ONE Stop: 08/23/22 18:01 Sodium Chloride (0.9 % Sodium Chloride Flush 3 Ml Syringe) 3 ml IVFLUSH QSHIFT [facility] Last Admin: 08/23/22 10:13 Dose: Not Given Documented By: CHENCHO Non-Admin Reason: No Access Labs CBC & Chem 7: 08/23/22 07:12 08/23/22 07:12 Labs: Laboratory Results - last 24 hr 08/23/22 08/23/22 07:12 07:12 MCV 92.8 MCH 30.4 MCHC 32.7 RDW 13.1 Plt Count 256 MPV 9.9 Absolute Nucleated RBC 0.000 Nucleated RBC % (auto) 0.0 Anion Gap 12 Estim Creat Clear Calc 53.0 Estimated GFR > 60 Random Glucose 92 Calcium 8.4 Microbiology Microbiology Results: Microbiology 08/20/22 09:00 Blood Culture - Preliminary Blood - Venous No growth after 48 hours. 08/20/22 09:00 Blood Culture - Preliminary Blood - Venous No growth after 48 hours. Assessment and Plan (1) Swallowing difficulty: Status: Acute (2) Sundowning: Status: Acute (3) Acute UTI: Status: Acute (4) COVID-19: Status: Acute (5) Severe sepsis: Status: Acute Plan 82-year-old female with history of hypertension, hypothyroidism, and advanced dementia without behavioral disturbance admitted for UTI with severe sepsis with metabolic encephalopathy and found to have COVID-19. # severe sepsis related to UTI Sepsis resolved Discontinue IVF Urine Cx growing EColi continue Ceftriaxone # metabolic encephalopathy likely secondary to Covid and UTI Improving treat infection as above with recurrent reorientation # Physical deconditioning 2\2 covid and hospital stay PT eval # Sundowning related to hospital stay, medications and infection reorientation Seroquel as needed # swallowing problem Eats soft diet at home speech therapy eval Pureed diet for now # COVID-19 patient with mild symptoms Tylenol p.r.n. for fever, guaifenesin her Tessalon Perles for cough # hypertension-controlled continue amlodipine # hypothyroidism continue levothyroxine # Alzheimer's disease increased behavioral disturbance from baseline p.r.n. Zyprexa as needed for agitation/aggression DVT prophylaxis Lovenox DNR/DNI per her daughter who is her healthcare proxy Patient requires inpatient stay of overnight due to UTI with metabolic encephalopathy requiring IV antibiotics. pending PT eval, pending improvement in mentation prior to discharge for safe discharge planning. Quality Stroke Does the patient have a stroke diagnosis?: No VTE Prior VTE?: No VTE Risk Level:: Medical - moderate - high VTE Device Contraindication: Treatment Not Indicated VTE Drug Contraindication: N/A - Med Ordered
[2022-08-23 15:57] VITALS: BP 177/84; PULSE 79; RESP 16; TEMP 36.6; O2SAT 93
[2022-08-23] MEDS: QUEtiapine Fumarate 25 MG TABLET PO (17:07)
[2022-08-23 19:47] VITALS: BP 125/85; PULSE 79; RESP 15; TEMP 36.9; O2SAT 92
[2022-08-23] MEDS: 0.9 % Sodium Chloride Flush 3 ML SYRINGE IVFLUSH (20:27)
[2022-08-23] MEDS: Acetaminophen Oral Liquid 650 MG/20.3 ML SOLUTION PO (20:38)
[2022-08-24 00:43] VITALS: BP 124/61; PULSE 77; RESP 16; TEMP 36.7; O2SAT 92
[2022-08-24 04:00] VITALS: BP 131/68; PULSE 68; RESP 16; TEMP 36.6; O2SAT 96
[2022-08-24 08:00] VITALS: BP 104/60; PULSE 69; RESP 16; TEMP 36.6; O2SAT 95
[2022-08-24] MEDS: amLODIPine Besylate 5 MG TABLET PO (10:49)
[2022-08-24] MEDS: polyethylene glycoL 3350 17 GM POWD.PACK PO (10:50)
[2022-08-24] MEDS: 0.9 % Sodium Chloride Flush 3 ML SYRINGE IVFLUSH ×2 (10:51→17:15)
[2022-08-24 11:51] VITALS: BP 162/62; PULSE 68; RESP 16; TEMP 36.3; O2SAT 95
--- NOTE | 2022-08-24 12:46 | P.PNIM_ITS ---
Subjective Subjective Date of Service: 08/24/22 Interval History: The patient was seen and evaluated this morning more alert and interactive , very weak to ambulate Not following commands per physical therapy No reported other overnight events. Systemic review: Reporting generalized weakness No chest pain, palpitation No shortness of breath or coughing No abdominal pain, nausea or vomiting No urinary symptoms No reported rash Physical Exam Vital Signs: Vital Signs: Last Vital Signs Temp 97.4 F 08/24/22 11:51 Pulse 68 08/24/22 11:51 Resp 16 08/24/22 11:51 BP 162/62 H 08/24/22 11:51 Pulse Ox 95 08/24/22 11:51 O2 Del Method 08/24/22 11:51 O2 Flow Rate 3 08/22/22 07:15 BMI result Body Mass Index 30.9 Const: Other: Constitutional : Awake,not in distress , frail Neck : Normal inspection, Supple Cardiovascular : RRR, no JVP, no lower extremity edema Respiratory : good bilateral air entry, no crackles, wheezes or rhonchi Gastrointestinal: soft, lax, Normal bowel sounds, Non tender Skin : Warm, Dry Neurological : Alert & oriented to self, No focal deficit, baseline tremors Objective Data Active Medications Acetaminophen (Acetaminophen Oral Liquid 650 Mg/20.3 Ml Solution) 650 mg PO Q6H PRN PRN Reason: Fever Last Admin: 08/23/22 20:38 Dose: 650 mg Documented By: SHELLIE Acetaminophen (Acetaminophen Supp 650 Mg Supp.Rect) 650 mg [place] Q6H PRN PRN Reason: Fever Amlodipine Besylate (Amlodipine Besylate 5 Mg Tablet) 5 mg PO DAILY [facility]; Protocol Last Admin: 08/24/22 10:49 Dose: 5 mg Documented By: ISIAH Benzonatate (Benzonatate 100 Mg Capsule) 100 mg PO TID PRN PRN Reason: Cough Last Admin: 08/20/22 21:20 Dose: 100 mg Documented By: JUAN Cefuroxime Axetil (Cefuroxime Axetil 500 Mg Tablet) 500 mg PO BID [facility] Last Admin: 08/24/22 10:50 Dose: 500 mg Documented By: ISIAH Docusate Sodium (Docusate Sodium 100 Mg Capsule) 100 mg PO DAILY PRN PRN Reason: Constipation Enoxaparin Sodium (Enoxaparin Sodium 40 Mg/0.4 Ml Syringe) 40 mg SUBCUT Q24H [facility] Last Admin: 08/23/22 12:19 Dose: 40 mg Documented By: CHENCHO Guaifenesin (Guaifenesin 200 Mg/10 Ml 10 Ml Liquid) 10 ml PO Q6H PRN PRN Reason: cough Levothyroxine Sodium (Levothyroxine Sodium 100 Mcg Tablet) 100 mcg PO DAILY@0600 [facility] Last Admin: 08/24/22 06:07 Dose: Not Given Documented By: DRAKE Non-Admin Reason: Patient Refused Ondansetron HCl (Ondansetron Hcl 4 Mg/2 Ml Vial) 4 mg IVPUSH Q8H PRN PRN Reason: Nausea and Vomiting Pharmacy Consult (Consult Rx Perform Med Rec) 1 each MISCELLANE ONCE PRN PRN Reason: Consult order Polyethylene Glycol (Polyethylene Glycol 3350 17 Gm Powd.Pack) 17 gm PO DAILY [facility] Last Admin: 08/24/22 10:50 Dose: 17 gm Documented By: ISIAH Sodium Chloride (0.9 % Sodium Chloride Flush 3 Ml Syringe) 3 ml IVFLUSH QSHIFT [facility] Last Admin: 08/24/22 10:51 Dose: 3 ml Documented By: ISIAH Labs CBC & Chem 7: 08/23/22 07:12 08/23/22 07:12 Assessment and Plan (1) Sundowning: Status: Acute (2) Swallowing difficulty: Status: Acute (3) Acute UTI: Status: Acute (4) COVID-19: Status: Acute (5) Acute encephalopathy: Status: Acute Plan 82-year-old female with history of hypertension, hypothyroidism, and advanced dementia without behavioral disturbance admitted for UTI with severe sepsis with metabolic encephalopathy and found to have COVID-19. # severe sepsis related to UTI, resolved Urine Cx growing EColi Antibiotics changed to Ceftin # metabolic encephalopathy likely secondary to Covid and UTI Improved, close to her baseline treat infection as above with recurrent reorientation # Physical deconditioning 2\2 covid and hospital stay PT eval # Sundowning related to hospital stay, medications and infection reorientation Seroquel daily at 6 # swallowing problem Eats soft diet at home speech therapy eval Pureed diet for now # COVID-19 Asymptomatic Tylenol p.r.n. for fever, guaifenesin her Tessalon Perles for cough # hypertension-controlled continue amlodipine # hypothyroidism continue levothyroxine # Alzheimer's disease increased behavioral disturbance from baseline p.r.n. Zyprexa as needed for agitation/aggression DVT prophylaxis Lovenox DNR/DNI per her daughter who is her healthcare proxy Patient requires inpatient stay of overnight pending safe discharge plan Quality Stroke Does the patient have a stroke diagnosis?: No VTE Prior VTE?: No VTE Risk Level:: Medical - moderate - high VTE Device Contraindication: Treatment Not Indicated VTE Drug Contraindication: N/A - Med Ordered
[2022-08-24] MEDS: Enoxaparin Sodium 40 MG/0.4 ML SYRINGE SUBCUT (15:31)
[2022-08-24 15:56] VITALS: BP 130/63; PULSE 89; RESP 17; TEMP 36.9; O2SAT 95
--- NOTE | 2022-08-24 16:32 | MHC.CM.PN ---
Met with patient and family. PT rec LTC. Preferences obtained and referrals sent. Pt is day 5 Covid+ tomorrow. Plan is to retest on day 5. If still covid+ patient will remain until day 11, covid recovery date. . Walt Mendoza is following.
--- NOTE | 2022-08-24 17:06 | PC.NURSE ---
patient requested Tylenol for back pain,Dr. Yates notified,ok to administer using existing order.
[2022-08-24] MEDS: QUEtiapine Fumarate 25 MG TABLET PO (17:14)
[2022-08-24] MEDS: Acetaminophen Oral Liquid 650 MG/20.3 ML SOLUTION PO (17:14)
--- NOTE | 2022-08-24 17:14 | MHC.SL.SWA ---
Speech Pathologist Impression: Oropharyngeal dysphagia Risk of Aspiration Due to: Neurological Condition Reduced Cognition Dysphasia Diet Status: Upgrade solids Liquid Consistency and Strategies for Safe Swallow: Liquid Intake Recommendation: Thin Liquid Intake Strategies: Small Sips No Straws Solid Food Consistency: Dietary Recommendations: Grnd/Mech Altered (NDD2) Additional Modifications to Solid Foods: Recommend UPGRADE to GROUND/MECH ALTERED (NDD2) solids with sauces/gravies and THIN liquids, pills CRUSHED in PUREE. Pt requires total 1:1 assistance feeding and aspiration precautions. Diet order updated by BOTTOM LIQUOR ATTENDANT. Sent [place] Message update to MD, RN, RD. BOTTOM LIQUOR ATTENDANT to f/u 1-2x during hospitalization. Oral Medication Intake: Crushed with Puree Please contact the pharmacy regarding appropriate crushable or liquid drug formulations that are available whenever modified delivery is recommended. Compensatory Strategies and Precautions to be Taken for Safe Swallow: Sitting Upright (90 deg) No Straw Small Bites and Sips Alternate Liquids/Solids Rate of Ingestion Change Oral Check Avoid Specific Foods Supervision While Eating and Drinking for Safe Swallow: Total Assistance (1:1) Foods to Avoid: Hard, tough to chew solids Swallowing Recommended Treatments: Compens. Strategy Educat. Recommendation for Speech: Inpatient Speech Therapy Comment: 1-2 f/u Frequency/Duration: Date Range for Service Req: Timeline to reassess: Sfdc Technical Architect Clinican/Clinical Fellow: No Supervisory Statement: I have reviewed and agree with the student/clinical fellow's documentation: N/A Speech Language Pathologist: Yamilka Ward M.A., [facility]-BOTTOM LIQUOR ATTENDANT
[2022-08-24 19:59] VITALS: BP 148/74; PULSE 78; RESP 17; TEMP 37.2; O2SAT 97
[2022-08-25] VITALS (7 sets, daily range): BP systolic 127–153; BP diastolic 58–72; PULSE 56–84; RESP 16–20; TEMP 35.9–36.8; O2SAT 94–97
[2022-08-25] MEDS: 0.9 % Sodium Chloride Flush 3 ML SYRINGE IVFLUSH ×4 (02:17→20:39)
[2022-08-25] MEDS: Levothyroxine Sodium 100 MCG TABLET PO (05:31)
[2022-08-25] MEDS: amLODIPine Besylate 5 MG TABLET PO (09:40)
[2022-08-25] MEDS: polyethylene glycoL 3350 17 GM POWD.PACK PO (09:41)
--- NOTE | 2022-08-25 11:42 | MHC.SL.SWA ---
Speech Pathologist Impression: Risk of Aspiration Due to: Neurological Condition Reduced Cognition Dysphasia Diet Status: Ground Mechanical/Altered with Thin Liquids, Pills crushed in puree. Liquid Consistency and Strategies for Safe Swallow: Liquid Intake Recommendation: Thin Liquid Intake Strategies: Small Sips No Straws Solid Food Consistency: Dietary Recommendations: Grnd/Mech Altered (NDD2) Additional Modifications to Solid Foods: Recommend UPGRADE to GROUND/MECH ALTERED (NDD2) solids with sauces/gravies and THIN liquids, pills CRUSHED in PUREE. Pt requires total 1:1 assistance feeding and aspiration precautions. Diet order updated by ADULT BASIC EDUCATION TEACHER. Sent [place] Message update to , RN, RD. ADULT BASIC EDUCATION TEACHER to f/u 1-2x during hospitalization. Oral Medication Intake: Crushed with Puree Please contact the pharmacy regarding appropriate crushable or liquid drug formulations that are available whenever modified delivery is recommended. Compensatory Strategies and Precautions to be Taken for Safe Swallow: Sitting Upright (90 deg) No Straw Small Bites and Sips Alternate Liquids/Solids Rate of Ingestion Change Oral Check Avoid Specific Foods Supervision While Eating and Drinking for Safe Swallow: Total Supervision (1:1) Foods to Avoid: Hard, tough to chew solids Swallowing Recommended Treatments: Compens. Strategy Educat. Recommendation for Speech: Inpatient Speech Therapy Comment: Pt seen this morning at breakfast, with daughter present and assisting with meal. Patient was mostly independent in taking forkfuls of ground egg/sausage, producing a mildly disorganized/slow oral phase, timely swallow, mildly reduced laryngeal elevation noted. Patient had eaten most of meal, finished meal with ADULT BASIC EDUCATION TEACHER present and observing, no clinical signs of aspiration on solid foods, sips of liquid. Patient took sips of liquid by straw, took small sips and produced timely swallow. Daughter commented that she felt diet was appropriate, more manageable for patient as it was soft, precut/ground and easier for her to eat. Daughter felt lan/wan engineer with which patient lived would also benefit from this type of ground diet. Patient is tolerating diet well, recommend D/C speech at this time with continuation of current diet: Ground Mechanical/Altered with Thin Liquids, Pills crushed in puree. Frequency/Duration: Date Range for Service Req: Timeline to reassess: Executive Candidate Developer Clinican/Clinical Fellow: No Supervisory Statement: I have reviewed and agree with the student/clinical fellow's documentation: N/A Speech Language Pathologist: Mary Lou Frank M.A., [facility]-ADULT BASIC EDUCATION TEACHER
[2022-08-25] MEDS: Enoxaparin Sodium 40 MG/0.4 ML SYRINGE SUBCUT (14:20)
--- NOTE | 2022-08-25 14:40 | P.PNIM_ITS ---
Subjective Subjective Date of Service: 08/25/22 Interval History: The patient was seen and evaluated this morning more alert and interactive , very weak to ambulate Not following commands per physical therapy No reported other overnight events. Systemic review: Reporting generalized weakness No chest pain, palpitation No shortness of breath or coughing No abdominal pain, nausea or vomiting No urinary symptoms No reported rash Physical Exam Vital Signs: Vital Signs: Last Vital Signs Temp 97.2 F 08/25/22 12:00 Pulse 84 08/25/22 12:00 Resp 20 08/25/22 12:00 BP 133/58 L 08/25/22 12:00 Pulse Ox 95 08/25/22 12:00 O2 Del Method 08/25/22 12:00 O2 Flow Rate 3 08/22/22 07:15 BMI result Body Mass Index 30.9 Const: Other: Constitutional : Awake,not in distress , frail Neck : Normal inspection, Supple Cardiovascular : RRR, no JVP, no lower extremity edema Respiratory : good bilateral air entry, no crackles, wheezes or rhonchi Gastrointestinal: soft, lax, Normal bowel sounds, Non tender Skin : Warm, Dry Neurological : Alert & oriented to self, No focal deficit, baseline tremors Objective Data Active Medications Acetaminophen (Acetaminophen Oral Liquid 650 Mg/20.3 Ml Solution) 650 mg PO Q6H PRN PRN Reason: Fever Last Admin: 08/24/22 17:14 Dose: 650 mg Documented By: FOREIGN Acetaminophen (Acetaminophen Supp 650 Mg Supp.Rect) 650 mg [place] Q6H PRN PRN Reason: Fever Amlodipine Besylate (Amlodipine Besylate 5 Mg Tablet) 5 mg PO DAILY [facility]; Protocol Last Admin: 08/25/22 09:40 Dose: 5 mg Documented By: SAVANNAH Benzonatate (Benzonatate 100 Mg Capsule) 100 mg PO TID PRN PRN Reason: Cough Last Admin: 08/20/22 21:20 Dose: 100 mg Documented By: JUAN Cefuroxime Axetil (Cefuroxime Axetil 500 Mg Tablet) 500 mg PO BID [facility] Last Admin: 08/25/22 09:40 Dose: 500 mg Documented By: SAVANNAH Docusate Sodium (Docusate Sodium 100 Mg Capsule) 100 mg PO DAILY PRN PRN Reason: Constipation Enoxaparin Sodium (Enoxaparin Sodium 40 Mg/0.4 Ml Syringe) 40 mg SUBCUT Q24H [facility] Last Admin: 08/25/22 14:20 Dose: 40 mg Documented By: SAVANNAH Guaifenesin (Guaifenesin 200 Mg/10 Ml 10 Ml Liquid) 10 ml PO Q6H PRN PRN Reason: cough Levothyroxine Sodium (Levothyroxine Sodium 100 Mcg Tablet) 100 mcg PO DAILY@0600 [facility] Last Admin: 08/25/22 05:31 Dose: 100 mcg Documented By: REYMUNDO Ondansetron HCl (Ondansetron Hcl 4 Mg/2 Ml Vial) 4 mg IVPUSH Q8H PRN PRN Reason: Nausea and Vomiting Pharmacy Consult (Consult Rx Perform Med Rec) 1 each MISCELLANE ONCE PRN PRN Reason: Consult order Polyethylene Glycol (Polyethylene Glycol 3350 17 Gm Powd.Pack) 17 gm PO DAILY [facility] Last Admin: 08/25/22 09:41 Dose: 17 gm Documented By: SAVANNAH Quetiapine Fumarate (Quetiapine Fumarate 25 Mg Tablet) 25 mg PO DAILY@1700 [facility] Last Admin: 08/24/22 17:14 Dose: 25 mg Documented By: FOREIGN Sodium Chloride (0.9 % Sodium Chloride Flush 3 Ml Syringe) 3 ml IVFLUSH QSHIFT [facility] Last Admin: 08/25/22 09:40 Dose: 3 ml Documented By: SAVANNAH Labs CBC & Chem 7: 08/23/22 07:12 08/23/22 07:12 Microbiology Microbiology Results: Microbiology 08/20/22 09:00 Blood Culture - Final Blood - Venous No growth after 5 days. 08/20/22 09:00 Blood Culture - Final Blood - Venous No growth after 5 days. Assessment and Plan (1) Sundowning: Status: Acute (2) Acute encephalopathy: Status: Acute (3) Swallowing difficulty: Status: Acute Plan 82-year-old female with history of hypertension, hypothyroidism, and advanced dementia without behavioral disturbance admitted for UTI with severe sepsis with metabolic encephalopathy and found to have COVID-19. # severe sepsis related to UTI, resolved Urine Cx growing EColi Antibiotics changed to Ceftin # metabolic encephalopathy likely secondary to Covid and UTI Improved, close to her baseline treat infection as above with recurrent reorientation # Physical deconditioning 2\2 covid and hospital stay PT eval ; LTC vs 10/05 home care increase ambulation and physical activity as family wants her home # Sundowning related to hospital stay, medications and infection reorientation Seroquel daily at 6 # swallowing problem Eats soft diet at home speech therapy eval Pureed diet for now # COVID-19 Asymptomatic Tylenol p.r.n. for fever, guaifenesin her Tessalon Perles for cough # hypertension-controlled continue amlodipine # hypothyroidism continue levothyroxine # Alzheimer's disease increased behavioral disturbance from baseline p.r.n. Zyprexa as needed for agitation/aggression DVT prophylaxis Lovenox DNR/DNI per her daughter who is her healthcare proxy Patient requires inpatient stay of overnight pending safe discharge plan Quality Stroke Does the patient have a stroke diagnosis?: No VTE Prior VTE?: No VTE Risk Level:: Medical - moderate - high VTE Device Contraindication: Treatment Not Indicated VTE Drug Contraindication: N/A - Med Ordered
[2022-08-25] MEDS: QUEtiapine Fumarate 25 MG TABLET PO (17:19)
[2022-08-25] MEDS: Acetaminophen Oral Liquid 650 MG/20.3 ML SOLUTION PO (20:27)
[2022-08-26 03:24] VITALS: BP 132/70; PULSE 62; RESP 16; TEMP 36.4; O2SAT 98
[2022-08-26] MEDS: Levothyroxine Sodium 100 MCG TABLET PO (06:05)
[2022-08-26 08:00] VITALS: BP 119/73; PULSE 87; RESP 18; TEMP 36.6; O2SAT 98
[2022-08-26] MEDS: Acetaminophen Oral Liquid 650 MG/20.3 ML SOLUTION PO ×2 (08:11→16:57)
[2022-08-26] MEDS: polyethylene glycoL 3350 17 GM POWD.PACK PO (08:11)
[2022-08-26] MEDS: Benzonatate 100 MG CAPSULE PO (08:11)
[2022-08-26] MEDS: amLODIPine Besylate 5 MG TABLET PO (08:11)
[2022-08-26] MEDS: 0.9 % Sodium Chloride Flush 3 ML SYRINGE IVFLUSH ×3 (08:12→23:12)
[2022-08-26 11:44] VITALS: BP 139/63; PULSE 71; RESP 18; TEMP 36.6; O2SAT 95
--- NOTE | 2022-08-26 12:31 | P.PNIM_ITS ---
Subjective Subjective Date of Service: 08/26/22 Interval History: cc: ams interval history:unchanged Review of Systems Review of Systems: Yes Unobtainable due to mental status Physical Exam Vital Signs: Vital Signs: Last Vital Signs Temp 97.9 F 08/26/22 11:44 Pulse 71 08/26/22 11:44 Resp 18 08/26/22 11:44 BP 139/63 08/26/22 11:44 Pulse Ox 95 08/26/22 11:44 O2 Del Method 08/26/22 11:44 O2 Flow Rate 3 08/22/22 07:15 BMI result Body Mass Index 30.9 General: lethargic, no acute distress Resp: CTA bilateral, no accessory muscles used CVS: S1,S2,RRR GI: soft, non tender, non distended Neuro: motor grossly intact, lethargic Psych: appropriate affect, impaired insight Objective Data Active Medications Acetaminophen (Acetaminophen Oral Liquid 650 Mg/20.3 Ml Solution) 650 mg PO Q6H PRN PRN Reason: Fever Last Admin: 08/26/22 08:11 Dose: 650 mg Documented By: SISSY Acetaminophen (Acetaminophen Supp 650 Mg Supp.Rect) 650 mg [place] Q6H PRN PRN Reason: Fever Amlodipine Besylate (Amlodipine Besylate 5 Mg Tablet) 5 mg PO DAILY [facility]; Protocol Last Admin: 08/26/22 08:11 Dose: 5 mg Documented By: SISSY Benzonatate (Benzonatate 100 Mg Capsule) 100 mg PO TID PRN PRN Reason: Cough Last Admin: 08/26/22 08:11 Dose: 100 mg Documented By: SISSY Cefuroxime Axetil (Cefuroxime Axetil 500 Mg Tablet) 500 mg PO BID [facility] Last Admin: 08/26/22 08:11 Dose: 500 mg Documented By: SISSY Docusate Sodium (Docusate Sodium 100 Mg Capsule) 100 mg PO DAILY PRN PRN Reason: Constipation Enoxaparin Sodium (Enoxaparin Sodium 40 Mg/0.4 Ml Syringe) 40 mg SUBCUT Q24H [facility] Last Admin: 08/25/22 14:20 Dose: 40 mg Documented By: SAVANNAH Guaifenesin (Guaifenesin 200 Mg/10 Ml 10 Ml Liquid) 10 ml PO Q6H PRN PRN Reason: cough Levothyroxine Sodium (Levothyroxine Sodium 100 Mcg Tablet) 100 mcg PO DAILY@0600 [facility] Last Admin: 08/26/22 06:05 Dose: 100 mcg Documented By: MIRIAN Ondansetron HCl (Ondansetron Hcl 4 Mg/2 Ml Vial) 4 mg IVPUSH Q8H PRN PRN Reason: Nausea and Vomiting Pharmacy Consult (Consult Rx Perform Med Rec) 1 each MISCELLANE ONCE PRN PRN Reason: Consult order Polyethylene Glycol (Polyethylene Glycol 3350 17 Gm Powd.Pack) 17 gm PO DAILY [facility] Last Admin: 08/26/22 08:11 Dose: 17 gm Documented By: SISSY Quetiapine Fumarate (Quetiapine Fumarate 25 Mg Tablet) 12.5 mg PO DAILY@1700 [facility] Sodium Chloride (0.9 % Sodium Chloride Flush 3 Ml Syringe) 3 ml IVFLUSH QSHIFT [facility] Last Admin: 08/26/22 08:12 Dose: 3 ml Documented By: SISSY Labs CBC & Chem 7: 08/23/22 07:12 08/23/22 07:12 Microbiology Microbiology Results: Microbiology 08/20/22 09:00 Blood Culture - Final Blood - Venous No growth after 5 days. 08/20/22 09:00 Blood Culture - Final Blood - Venous No growth after 5 days. Assessment and Plan (1) Sundowning: Status: Acute (2) Acute encephalopathy: Status: Acute (3) Swallowing difficulty: Status: Acute Plan 82-year-old female with history of hypertension, hypothyroidism, and advanced dementia without behavioral disturbance admitted for UTI with severe sepsis with metabolic encephalopathy and found to have COVID-19. severe sepsis related to UTI, resolved Urine Cx growing EColi Antibiotics changed to Ceftin metabolic encephalopathy likely secondary to Covid and UTI treat infection as above with recurrent reorientation Physical deconditioning 2\2 covid and hospital stay PT eval times 2; LTC vs 10/05 home care however, family feels that patient may have potential for rehab as was showering independently prior to hospitalization will monitor mental status and reeval when appropriate Sundowning related to hospital stay, medications and infection reorientation Seroquel daily at 6, will decrease to 12.5mg dysphagia 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 for fever, guaifenesin her Tessalon Perles for cough hypertension-controlled continue amlodipine hypothyroidism continue levothyroxine Alzheimer's disease with acute delerium increased behavioral disturbance from baseline DVT prophylaxis Lovenox DNR/DNI per her daughter who is her healthcare proxy reason for continued hospitalization: managing delerium Quality Stroke Does the patient have a stroke diagnosis?: No VTE Prior VTE?: No VTE Risk Level:: Medical - moderate - high VTE Device Contraindication: Treatment Not Indicated VTE Drug Contraindication: N/A - Med Ordered
[2022-08-26] MEDS: Enoxaparin Sodium 40 MG/0.4 ML SYRINGE SUBCUT (12:52)
[2022-08-26 15:59] VITALS: BP 165/69; PULSE 87; RESP 17; TEMP 36.1; O2SAT 97
[2022-08-26] MEDS: QUEtiapine Fumarate 25 MG TABLET 12.5 MG PO (16:52)
[2022-08-26 19:42] VITALS: BP 138/70; PULSE 84; RESP 18; TEMP 36.6
[2022-08-26 23:44] VITALS: BP 150/83; PULSE 78; RESP 18; TEMP 36.4; O2SAT 91
[2022-08-27] VITALS (7 sets, daily range): BP systolic 113–136; BP diastolic 54–88; PULSE 67–82; RESP 16–18; TEMP 36.1–37.1; O2SAT 96–98
[2022-08-27] MEDS: Levothyroxine Sodium 100 MCG TABLET PO (05:10)
[2022-08-27] MEDS: polyethylene glycoL 3350 17 GM POWD.PACK PO (09:29)
[2022-08-27] MEDS: Acetaminophen Oral Liquid 650 MG/20.3 ML SOLUTION PO ×2 (09:29→21:06)
[2022-08-27] MEDS: amLODIPine Besylate 5 MG TABLET PO (09:29)
[2022-08-27] MEDS: 0.9 % Sodium Chloride Flush 3 ML SYRINGE IVFLUSH (09:30)
[2022-08-27] MEDS: Benzonatate 100 MG CAPSULE PO (09:30)
--- NOTE | 2022-08-27 11:06 | P.PNIM_ITS ---
Subjective Subjective Date of Service: 08/27/22 Interval History: cc: ams interval history:no complaints today, sitting up and feeding self, following commands Cardiovascular Cardiovascular: Reports no additional cardiovascular complaints Respiratory Respiratory: Reports no additional respiratory complaints Physical Exam Vital Signs: Vital Signs: Last Vital Signs Temp 98.7 F 08/27/22 06:58 Pulse 76 08/27/22 06:58 Resp 17 08/27/22 06:58 BP 135/72 08/27/22 06:58 Pulse Ox 96 08/27/22 06:58 O2 Del Method 08/27/22 06:58 O2 Flow Rate 3 08/22/22 07:15 BMI result Body Mass Index 30.9 General: AO X 1, no acute distress Resp: CTA bilateral, no accessory muscles used CVS: S1,S2,RRR GI: soft, non tender, non distended Neuro: motor grossly intact, alert, following commands Psych: appropriate affect, impaired insight Objective Data Active Medications Acetaminophen (Acetaminophen Oral Liquid 650 Mg/20.3 Ml Solution) 650 mg PO Q6H PRN PRN Reason: Fever Last Admin: 08/27/22 09:29 Dose: 650 mg Documented By: DEONTE Acetaminophen (Acetaminophen Supp 650 Mg Supp.Rect) 650 mg [place] Q6H PRN PRN Reason: Fever Amlodipine Besylate (Amlodipine Besylate 5 Mg Tablet) 5 mg PO DAILY [facility]; Protocol Last Admin: 08/27/22 09:29 Dose: 5 mg Documented By: DEONTE Benzonatate (Benzonatate 100 Mg Capsule) 100 mg PO TID PRN PRN Reason: Cough Last Admin: 08/27/22 09:30 Dose: 100 mg Documented By: DEONTE Cefuroxime Axetil (Cefuroxime Axetil 500 Mg Tablet) 500 mg PO BID [facility] Last Admin: 08/27/22 09:29 Dose: 500 mg Documented By: DEONTE Docusate Sodium (Docusate Sodium 100 Mg Capsule) 100 mg PO DAILY PRN PRN Reason: Constipation Enoxaparin Sodium (Enoxaparin Sodium 40 Mg/0.4 Ml Syringe) 40 mg SUBCUT Q24H [facility] Last Admin: 08/26/22 12:52 Dose: 40 mg Documented By: SISSY Guaifenesin (Guaifenesin 200 Mg/10 Ml 10 Ml Liquid) 10 ml PO Q6H PRN PRN Reason: cough Levothyroxine Sodium (Levothyroxine Sodium 100 Mcg Tablet) 100 mcg PO AYANA LY@0600 [facility] Last Admin: 08/27/22 05:10 Dose: 100 mcg Documented By: DEL Ondansetron HCl (Ondansetron Hcl 4 Mg/2 Ml Vial) 4 mg IVPUSH Q8H PRN PRN Reason: Nausea and Vomiting Pharmacy Consult (Consult Rx Perform Med Rec) 1 each MISCELLANE ONCE PRN PRN Reason: Consult order Polyethylene Glycol (Polyethylene Glycol 3350 17 Gm Powd.Pack) 17 gm PO DAILY [facility] Last Admin: 08/27/22 09:29 Dose: 17 gm Documented By: DEONTE Quetiapine Fumarate (Quetiapine Fumarate 25 Mg Tablet) 12.5 mg PO DAILY@1700 [facility] Last Admin: 08/26/22 16:52 Dose: 12.5 mg Documented By: SISSY Sodium Chloride (0.9 % Sodium Chloride Flush 3 Ml Syringe) 3 ml IVFLUSH QSHIFT [facility] Last Admin: 08/27/22 09:30 Dose: 3 ml Documented By: DEONTE Labs CBC & Chem 7: 08/23/22 07:12 08/23/22 07:12 Assessment and Plan (1) Sundowning: Status: Acute (2) Acute encephalopathy: Status: Acute (3) Swallowing difficulty: Status: Acute Plan 82-year-old female with history of hypertension, hypothyroidism, and advanced dementia without behavioral disturbance admitted for UTI with severe sepsis with metabolic encephalopathy and found to have COVID-19. severe sepsis related to UTI, resolved Urine Cx growing EColi Antibiotics changed to Ceftin metabolic encephalopathy likely secondary to Covid and UTI treat infection as above with recurrent reorientation Physical deconditioning 2\2 covid and hospital stay PT eval times 2; LTC vs 10/05 home care however, family feels that patient may have potential for rehab as was showering independently prior to hospitalization appears to be following commands at this time will request reeval Sundowning related to hospital stay, medications and infection reorientation Seroquel daily at 6, now decreased to 12.5mg dysphagia 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 for fever, guaifenesin her Tessalon Perles for cough hypertension-controlled continue amlodipine hypothyroidism continue levothyroxine Alzheimer's disease with acute delerium increased behavioral disturbance from baseline, showing improvement today DVT prophylaxis Lovenox DNR/DNI per her daughter who is her healthcare proxy reason for continued hospitalization: managing delerium, safe dispo Quality Stroke Does the patient have a stroke diagnosis?: No VTE Prior VTE?: No VTE Risk Level:: Medical - moderate - high VTE Device Contraindication: Treatment Not Indicated VTE Drug Contraindication: N/A - Med Ordered
[2022-08-27] MEDS: Enoxaparin Sodium 40 MG/0.4 ML SYRINGE SUBCUT (13:24)
--- NOTE | 2022-08-27 15:08 | MHC.CM.PN ---
PT is now recommending STR; CM has updated SNF referrals.
[2022-08-27] MEDS: QUEtiapine Fumarate 25 MG TABLET 12.5 MG PO (16:36)
--- NOTE | 2022-08-28 | ECG_ITS ---
Test Reason : cp Blood Pressure : / mmHG Vent. Rate : 081 BPM Atrial Rate : 081 BPM P-R Int : 134 ms QRS Dur : 078 ms QT Int : 382 ms P-R-T Axes : 065 029 051 degrees QTc Int : 443 ms Normal sinus rhythm Nonspecific ST abnormality Abnormal ECG When compared with ECG of 20-AUG-2022 09:08, No significant changes seen Referred By: Ritesh Bedoya Electronically Signed By:NUHA RASHID MD
[2022-08-28 03:42] VITALS: BP 126/60; PULSE 67; RESP 18; TEMP 37.1; O2SAT 94
[2022-08-28] MEDS: Levothyroxine Sodium 100 MCG TABLET PO (05:35)
[2022-08-28 08:00] VITALS: BP 115/64; PULSE 73; RESP 12; TEMP 36.8; O2SAT 97
[2022-08-28] MEDS: amLODIPine Besylate 5 MG TABLET PO (10:11)
[2022-08-28] MEDS: Acetaminophen Oral Liquid 650 MG/20.3 ML SOLUTION PO (10:11)
[2022-08-28 10:27] VITALS: BP 115/64; PULSE 73; O2SAT 97
--- NOTE | 2022-08-28 10:59 | P.PNIM_ITS ---
Subjective Subjective Date of Service: 08/28/22 Interval History: cc: ams interval history:conitnues to be more alert Cardiovascular Cardiovascular: Reports no additional cardiovascular complaints Respiratory Respiratory: Reports no additional respiratory complaints Physical Exam Vital Signs: Vital Signs: Last Vital Signs Temp 98.3 F 08/28/22 08:00 Pulse 73 08/28/22 10:27 Resp 12 08/28/22 08:00 BP 115/64 08/28/22 10:27 Pulse Ox 97 08/28/22 10:27 O2 Del Method 08/28/22 08:00 O2 Flow Rate 3 08/22/22 07:15 BMI result Body Mass Index 30.9 General: AO X 1, no acute distress Resp: CTA bilateral, no accessory muscles used CVS: S1,S2,RRR GI: soft, non tender, non distended Neuro: motor grossly intact, alert, following commands Psych: appropriate affect, impaired insight Objective Data Active Medications Acetaminophen (Acetaminophen Oral Liquid 650 Mg/20.3 Ml Solution) 650 mg PO Q6H PRN PRN Reason: Fever Last Admin: 08/28/22 10:11 Dose: 650 mg Documented By: SAVANNAH Acetaminophen (Acetaminophen Supp 650 Mg Supp.Rect) 650 mg IN Q6H PRN PRN Reason: Fever Amlodipine Besylate (Amlodipine Besylate 5 Mg Tablet) 5 mg PO DAILY [facility]; Protocol Last Admin: 08/28/22 10:11 Dose: 5 mg Documented By: SAVANNAH Benzonatate (Benzonatate 100 Mg Capsule) 100 mg PO TID PRN PRN Reason: Cough Last Admin: 08/27/22 09:30 Dose: 100 mg Documented By: DEONTE Cefuroxime Axetil (Cefuroxime Axetil 500 Mg Tablet) 500 mg PO BID [facility] Last Admin: 08/28/22 10:11 Dose: 500 mg Documented By: SAVANNAH Docusate Sodium (Docusate Sodium 100 Mg Capsule) 100 mg PO DAILY PRN PRN Reason: Constipation Enoxaparin Sodium (Enoxaparin Sodium 40 Mg/0.4 Ml Syringe) 40 mg SUBCUT Q24H [facility] Last Admin: 08/27/22 13:24 Dose: 40 mg Documented By: IDA Guaifenesin (Guaifenesin 200 Mg/10 Ml 10 Ml Liquid) 10 ml PO Q6H PRN PRN Reason: cough Levothyroxine Sodium (Levothyroxine Sodium 100 Mcg Tablet) 100 mcg PO DAILY@0600 [facility] Last Admin: 08/28/22 05:35 Dose: 100 mcg Documented By: JOSUÉ Ondansetron HCl (Ondansetron Hcl 4 Mg/2 Ml Vial) 4 mg IVPUSH Q8H PRN PRN Reason: Nausea and Vomiting Pharmacy Consult (Consult Rx Perform Med Rec) 1 each MISCELLANE ONCE PRN PRN Reason: Consult order Polyethylene Glycol (Polyethylene Glycol 3350 17 Gm Powd.Pack) 17 gm PO DAILY [facility] Last Admin: 08/28/22 10:24 Dose: Not Given Documented By: SAVANNAH Non-Admin Reason: Patient Refused Quetiapine Fumarate (Quetiapine Fumarate 25 Mg Tablet) 12.5 mg PO DAILY@1700 [facility] Last Admin: 08/27/22 16:36 Dose: 12.5 mg Documented By: DEONTE Sodium Chloride (0.9 % Sodium Chloride Flush 3 Ml Syringe) 3 ml IVFLUSH QSHIFT [facility] Last Admin: 08/28/22 10:14 Dose: Not Given Documented By: SAVANNAH Non-Admin Reason: No Access Labs CBC & Chem 7: 08/23/22 07:12 08/23/22 07:12 Assessment and Plan (1) Sundowning: Status: Acute (2) Acute encephalopathy: Status: Acute (3) Swallowing difficulty: Status: Acute Plan 82-year-old female with history of hypertension, hypothyroidism, and advanced dementia without behavioral disturbance admitted for UTI with severe sepsis with metabolic encephalopathy and found to have COVID-19. 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 for fever, guaifenesin her Tessalon Perles for cough hypertension-controlled continue amlodipine hypothyroidism continue levothyroxine Alzheimer's disease with acute delerium increased behavioral disturbance from baseline, showing improvement today DVT prophylaxis Lovenox DNR/DNI per her daughter who is her healthcare proxy reason for continued hospitalization: awaiting rehab bed Quality Stroke Does the patient have a stroke diagnosis?: No VTE Prior VTE?: No VTE Risk Level:: Medical - moderate - high VTE Device Contraindication: Treatment Not Indicated VTE Drug Contraindication: N/A - Med Ordered
[2022-08-28 12:00] VITALS: BP 117/66; PULSE 77; RESP 16; TEMP 36.2; O2SAT 96
[2022-08-28] MEDS: Enoxaparin Sodium 40 MG/0.4 ML SYRINGE SUBCUT (13:22)
--- NOTE | 2022-08-28 13:51 | P.DS_ITS ---
DS: Providers Provider Date of Service: 08/28/22 Date of admission: 08/20/22 13:32 Primary care physician: Willie Batista MD DS: Diagnosis Discharge Diagnosis (1) Sundowning: Status: Acute (2) Acute encephalopathy: Status: Acute (3) Swallowing difficulty: Status: Acute DS: Summary Hospital Course Hospital Course: from initial hpi: Chief Complaint: ams, fall 82-year-old female with history of hypertension, hypothyroidism, and advanced dementia without behavioral disturbance brought to the ED early this morning via EMS due to weakness and near fall.? The patient daughter who is her healthcare proxy is at bedside and it provides most of the history.? The patient was at home this morning with her boyfriend and woke this morning feeling unlike herself.? She stated that she felt the left side of her face was drooped with left-sided weakness.? However this note was not noted by the patient's boyfriend her daughter who reported that she was weak and nearly fell over.? Last known well time was 22:00 last night when she went to bed. Her daughter also states that she has been exhibiting behavioral aggression x3 days which is not her baseline. On arrival to ED, patient was febrile to 101.0 and tachycardic to 110.? There is no tachypnea or hypoxia.? Head CT negative for any acute intracranial abnormality.? Mild leukocytosis of 11.2.? Creatinine 1.13, BUN 25 with creatinine clearance 36.6.? Electrolytes normal.? Troponin 4.5.? Urinalysis showed 3+ leukocytes, nitrite positive, 1+ blood, 4+ bacteria.? She was also noted to be positive for COVID-19.? Chest x-ray unremarkable.? Patient is noted to have a slight cough by her daughter but states this is the 1st day.? Patient is not the best historian secondary to her dementia but does deny any fevers, chills, sore throat, headache, nasal congestion, abdominal pain, nausea, vomiting, diarrhea, shortness of breath, or chest pain.? No dysuria, hematuria, increased urinary frequency, or incontinence.? She was not noted to have any focal neural deficits in the ED and there was very low concern for any large vessel occlusion.? The patient is vaccinated against COVID-19 x2 but has not received booster.? Patient be admitted for treatment of UTI with severe sepsis with metabolic encephalopathy and COVID-19.? In the ED, she has been given acetaminophen and 1 g ceftriaxone. hospital course: Patient was admitted for severe sepsis secondary to urinary tract infection due to E coli. Complicated by metabolic encephalopathy and COVID-19. She was treated with ceftriaxone and transitioned to p.o. Ceftin. She will complete 5 more days of p.o. Ceftin. She had some physical deconditioning and was advised by Physical therapy, eventually was doing well enough to be deemed to benefit from intermediate facility for short-term rehab. Mental status is now close to baseline. She was noted to have some dysphagia and TANK FARM GAUGER recommended and Ndd2 solids and thin liquids. for hypertension was continue on amlodipine. For hypothyroidism was consider an Synthroid. For Alzheimer's disease she did have some acute delirium bud is now significantly improved with 12.5 mg of Seroquel at night. Patient is doing better will be discharged to intermediate facility. Time Spent with Patient Time attestation: Total time spent providing and/or coordinating discharge services: Discharge coordination time: Greater than 30 minutes Quality: Safe Use of Opioids Does Pt have an Active Cancer Diagnosis on the Problem List?: No Quality: Stroke Does the patient have a stroke diagnosis?: No Physical Exam Vital Signs: Vital Signs: Last Vital Signs Temp 97.1 F 08/28/22 12:00 Pulse 77 08/28/22 12:00 Resp 16 08/28/22 12:00 BP 117/66 08/28/22 12:00 Pulse Ox 96 08/28/22 12:00 O2 Del Method 08/28/22 12:00 O2 Flow Rate 3 08/22/22 07:15 BMI result Body Mass Index 30.9 General: AO X 1, no acute distress Resp: CTA bilateral, no accessory muscles used CVS: S1,S2,RRR GI: soft, non tender, non distended Neuro: motor grossly intact, alert, following commands Psych: appropriate affect, impaired insight Discharge Plan Discharge Anticipated Discharge Date/Time: 08/28/22 13:46 Patient Disposition: Xfer SNF Discharge Diagnosis: covid, uti Referrals: Willie Batista MD [Primary Care Provider] - 1 Week Discharge Medications: New cefuroxime axetil 500 mg Tablet 500 mg PO BID Qty: 10 0RF quetiapine 25 mg Tablet 12.5 mg PO DAILY@1700 Qty: 0 0RF Continued amlodipine 5 mg tablet 1 tab PO DAILY levothyroxine 100 mcg tablet 1 tab PO DAILY@0600 Discharge Orders: Discharge Order (Routine); Ordered 08/28/22 Ordered By: Ritesh Bedoya Diet: NDD2 solids, thin liquids Activity on Discharge: As tolerated Stand Alone Forms: Patient Portal Discharge page Care Plan Goals: recovery Health Concerns: covid, uti Plan of Treatment: 5 more days ceftin Assessment: see above
--- NOTE | 2022-08-28 13:58 | MHC.CM.NN ---
pt to be dcd today to[facility] lucy dee notified
[2022-08-28 15:27] VITALS: BP 125/72; PULSE 86; RESP 16; TEMP 36.3; O2SAT 95
[2022-08-28 16:15] LABS: COVID-19 Test Positive (Negative)
[2022-08-28] MEDS: QUEtiapine Fumarate 25 MG TABLET 12.5 MG PO (17:31)
[2022-08-28] MEDS: 0.9 % Sodium Chloride Flush 3 ML SYRINGE IVFLUSH ×2 (17:32→20:14)
--- NOTE | 2022-08-28 17:45 | MHC.CM.PN ---
Received call from mine engineering manager. Patient daughter wants to appeal discharge. [facility] currently closed. Daughter to call in AM to appeal. Discharge on hold until determination from [facility] received.
--- NOTE | 2022-08-28 18:22 | MHC.CM.PN ---
Addendum entered by Ayse Wallace 08/28/22 18:29: Received telephone call from Brittaney. She called [facility] and it was closed, only working till 5PM. Will call in the morning. CM notified Ivory Islas of daughter's request for appeal of discharge and of re-referrals placed. Jennifer called to cancel ambulance. Original Note: CM had lengthy conversation with Brittaney Mayo, daughter and HCP. Brittaney wants to appeal discharge, as she does not feel her mother is ready for discharge and does not want her mother to go to [facility]. Explained that once her mother is covid recovered on Wednesday, she could work with the hospital social worker at [facility] to have her mother transferred to another facility. Brittaney does not feel her mother will be safe at facility and does not want her to go there. CM reviewed appeal process with Brittaney. Brittaney will [phone]. Brittaney aware that CM will re-refer to [facility] will request to re-evaluate as patient will be COVID recovered on 08/31. Brittaney aware that if her appeal is denied and she continues to refuse discharge, she will be billed for staying after appeal. Brittaney also aware that she will need to accept STR bed offer or take her mother home, if she does not want to accept any other bed offers. Brittaney Acknowledges understanding. Is aware that she has the right to appeal the discharge. Given CM contact information if she has questions over the weekend. CM to follow for discharge planning.
[2022-08-28 19:47] VITALS: BP 135/71; PULSE 76; RESP 16; TEMP 36.3; O2SAT 96
[2022-08-29] VITALS: BP 135/78; PULSE 78; RESP 18; TEMP 37.1; O2SAT 97
[2022-08-29 04:00] VITALS: BP 108/63; PULSE 86; RESP 19; TEMP 37; O2SAT 96
[2022-08-29] MEDS: Levothyroxine Sodium 100 MCG TABLET PO (05:35)
[2022-08-29 08:00] VITALS: BP 129/75; PULSE 81; RESP 20; TEMP 36; O2SAT 96
--- NOTE | 2022-08-29 08:47 | MHC.CM.PN ---
CM CALLED DAUGHTER DAIVD AT [phone] TO DISCUSS APPEAL PROCESS AND TO DISCUSS OTHER BED OFFER. REQUEST TO RETURN CALL.
[2022-08-29] MEDS: amLODIPine Besylate 5 MG TABLET PO (09:37)
[2022-08-29 12:00] VITALS: BP 128/69; PULSE 91; RESP 20; TEMP 35.7; O2SAT 96
--- NOTE | 2022-08-29 12:17 | MHC.CM.PN ---
CM SPOKE WITH DAUGHTER DAVID AT BEDSIDE, OFFERED SUPPORT AND ENCOURAGED HER TO TOUR THE FACILITY IF SHE HAD RESERVATIONS. ANOTHER FAMILY MEMBER TOURED AND THEY ARE NOW AGREEABLE TO TRANSFER TO [facility]. FACILITY UPDATED, RN AWARE AND BLS TRANSPORT IS BOOKED FOR 2 PM.
[2022-08-29] MEDS: Enoxaparin Sodium 40 MG/0.4 ML SYRINGE SUBCUT (12:49)
--- NOTE | 2022-08-29 13:36 | PC.NURSE ---
nurse to nurse report given to RN primitivo at [facility]
== END 2022-08-29 15:10 | disposition skilled nursing facility (03) | DRG 871 ==
LOC: HO.ED 11:10 → HO.EDOVER 13:43 → HO.IMC 08-22 06:56
PROVIDERS: Student in an Organized Health Care Education/Training Program; Admitting Provider Physician Assistant; Emergency Provider Emergency Medicine; PCP Internal Medicine; Visit Provider Internal Medicine
DX: A41.9 Sepsis, unspecified organism (principal); G93.41 Metabolic encephalopathy; U07.1 COVID-19; F02.811 Dementia in other diseases classified elsewhere, unspecified severity, with agitation; N39.0 Urinary tract infection, site not specified; F05 Delirium due to known physiological condition; Z66 Do not resuscitate; B96.20 Unspecified Escherichia coli [E. coli] as the cause of diseases classified elsewhere; R13.10 Dysphagia, unspecified; R65.20 Severe sepsis without septic shock; G30.9 Alzheimer's disease, unspecified; I10 Essential (primary) hypertension; E03.9 Hypothyroidism, unspecified; Z79.890 Hormone replacement therapy; Z79.899 Other long term (current) drug therapy
CPT/HCPCS: 36415; 70450; 71045; 80048; 80076; 81001; 81003; 82550; 82947; 83605; 83735; 84443; 84484; 85025; 85027; 85610; 85730; 87040; 87086; 87088; 87186; 87635; 92610; 93005; 97162; 97530; 99285; J0696; J1650; J2543

== ENCOUNTER 2023-07-04 07:59 | Emergency (ER) | payer MEDICARE, SELFPAY ==
--- NOTE | ~2023-07-04 | CT_ITS ---
EXAMINATION: CT HEAD WITHOUT CONTRAST CT CERVICAL SPINE WITHOUT CONTRAST CLINICAL INFORMATION: Fall, confused. COMPARISON: CT head 06/20/2022. TECHNIQUE: Contiguous axial imaging of the head was performed without the administration of IV contrast. Axial multidetector volumetric images were also performed through the cervical spine without contrast. Multiplanar reconstructed images in coronal and sagittal orientations were submitted. DOSE: 2153 mGy-cm FINDINGS: HEAD: Motion artifact degrading images, limiting evaluation. There is no evidence of acute intracranial hemorrhage or edematous territorial infarction. No abnormal mass-effect or midline shift. No extra-axial fluid collections. Doll to white matter differentiation is grossly preserved. Commensurate prominence of the ventricles and sulci is compatible with generalized parenchymal volume loss. There is periventricular and subcortical white matter hypoattenuation, most likely representing microangiopathic disease Motion artifact limits evaluation for calvarial fracture. No gross displaced fractures identified. Partial fusion right mastoid air cells. The sinuses and left mastoid air cells are clear. CERVICAL SPINE: Significant motion artifact, degrading images, limiting evaluation. Evaluation of fractures limited. Craniocervical and atlantoaxial articulation is maintained. Predental space is maintained. Sagittal alignment is grossly maintained. The vertebral body heights are grossly maintained. No obvious vertebral body compression fractures seen. Small fractures, undisplaced fractures may not be readily evident on this motion-degraded study. Suspected mild cervical spondylosis. Bones are osteopenic. Central canal is grossly maintained. No abnormal prevertebral soft tissue swelling is identified. Mild biapical pleural-parenchymal scarring. CT/CT cervical spine wo IV con IMPRESSION: CT HEAD: 1. Motion artifact degrading images, limiting evaluation. Repeat CT scan as clinically warranted. 2. No large intracranial hemorrhage or edematous large vessel territorial infarction is identified. 3. Partial opacification right mastoid air cells. CT CERVICAL SPINE: 1. Significant motion artifact degrading images, limiting evaluation. Repeat CT scan as clinically warranted. 2. No significant vertebral body compression fractures seen. Evaluation for fracture is otherwise limited. 3. Suspected cervical spondylosis.
--- NOTE | ~2023-07-04 | CT_ITS ---
EXAMINATION: CT ABDOMEN AND PELVIS WITHOUT CONTRAST CLINICAL INFORMATION: Right hip pain status post fall. COMPARISON: None available. TECHNIQUE: Multidetector volumetric imaging was performed from the superior aspect of the liver through the pubic symphysis. Sagittal and coronal reformatted images were obtained on the technologist's workstation. This CT examination was performed using dose optimization techniques as appropriate, variously including the following: *Automated exposure control *Adjustment of mA and/or kV according to patient size (this includes techniques or standardized protocols for targeted exams where dose is matched to indication/reason for exam; i.e. extremities or head) *Use of iterative reconstruction technique DLP: 896 mGy-cm FINDINGS: Motion artifact degrading images, with associated limitation in evaluation. LUNG BASES: Mild bibasilar dependent changes/atelectasis. No pericardial or pleural effusion. Aorta vascular calcification. LIVER, GALLBLADDER, AND BILIARY TREE: The liver is normal in size, shape, and attenuation. No focal hepatic lesion or biliary ductal dilatation is present. The gallbladder is unremarkable with no evidence of radiopaque gallstones, gallbladder wall thickening, or obvious pericholecystic inflammatory changes. PANCREAS: Mildly atrophic. No acute changes. SPLEEN: Unremarkable. ADRENAL GLANDS: Unremarkable. KIDNEYS AND URETERS: No suspicious renal lesions. No hydronephrosis, hydroureter, or calculi seen. No perinephric stranding. BLADDER: Unremarkable. GASTROINTESTINAL TRACT: No dilated small or large bowel loops. Colonic diverticulosis with no evidence of findings suggest diverticulitis. Stomach is nondistended. The appendix is not clearly visualized. No free fluid. No free air. ABDOMINAL WALL: No significant hernia is appreciated. LYMPH NODES: No pathologically enlarged lymph nodes are seen. VASCULAR: Moderate-severe atherosclerotic vascular calcification. PELVIC VISCERA: Within normal limits for CT. OSSEOUS STRUCTURES: Motion artifact degrading images, limiting evaluation. Bones are osteopenic, limiting sensitivity and specificity. Multilevel degenerative changes in the spine. No vertebral body compression fractures seen. Mild right hip arthritis. On the provided sequences, no CT findings to suggest definite right hip fracture. No gross displaced pubic rami are left hip fracture is identified, evaluation is limited. There are amorphous lucencies in the sacrum and ilium,, including the left sacrum, which may be related to bone demineralization, degenerative changes. Evaluation of fracture is is limited as a result. Bilateral SI joint arthritis. No displaced rib fracture is identified. CT/CT abdomen pelvis wo IV con IMPRESSION: Motion artifact degrading images, limiting evaluation. 1. Colonic diverticulosis without evidence of diverticulitis. 2. No acute intra-abdominal findings identified. 3. No displaced acute fracture is identified of bilateral hips. Osteopenia and motion artifact limiting evaluation.. If there is clinical concern for a radiographically occult/undisplaced fracture, further evaluation with repeat CT or MRI can be obtained. 4. Findings in the sacrum and ilium, could be related to bone demineralization, degeneration. No gross displaced fracture is seen.Undisplaced fractures cannot be excluded. Clinically correlate. Fleischner guidelines were followed.
[2023-07-04 08:09] VITALS: BP 146/80; BP 149/123; PULSE 82; RESP 20; TEMP 36.4; O2SAT 95; O2SAT 97; BMI 23.9
--- NOTE | 2023-07-04 08:15 | MHC.EDTECH ---
Patient would not let t/w obtain flu/covid swabs, stating I will bite you! when attempting to collect sample. RN aware, was in room when this occured.
--- NOTE | 2023-07-04 08:17 | PC.NURSE ---
pt refusing COVID test. pt very agitated, confusion at baseline. waiting for pt's partner to arrive.
[2023-07-04] MEDS: OLANZapine 10 MG VIAL 5 MG IM (08:29)
--- NOTE | 2023-07-04 08:34 | PC.NURSE ---
pt's daughter at bedside, this RN medicated per MAR with daughter's consent.
--- NOTE | 2023-07-04 08:49 | ED.FALL ---
HPI - Fall General Chief Complaint: Fall Stated Complaint: fall from standing, dizzy, nausea, per ems Time Seen by Provider: 07/04/23 08:04 Source: patient, family and EMS Mode of arrival: EMS History of Present Illness HPI Narrative: 83-year-old female who is brought in from home via ambulance after she fell backwards and struck her head. She is not on blood thinners and she did not suffer any loss of consciousness. Patient did report dizziness and nausea but has dementia at baseline. Related Data Home Medications Medication Instructions Recorded Confirmed amlodipine 5 mg tablet 1 tab PO DAILY 08/20/22 08/20/22 levothyroxine 100 mcg tablet 1 tab PO DAILY@0600 08/20/22 08/20/22 Previous Rx's Medication Instructions Recorded cefuroxime axetil 500 mg tablet 500 mg PO BID #10 tabs 08/28/22 quetiapine 25 mg tablet 12.5 mg (1/2 x 25 mg) PO 08/28/22 DAILY@1700 #0 tabs Allergies Allergy/AdvReac Type Severity Reaction Status Date / Time No Known Allergies Allergy Verified 08/20/22 08:51 Review of Systems Review of Systems: Pertinent positives and negatives as stated in HPI PMFSH Past Medical History Source: nursing notes reviewed Medical History AD (Alzheimer's disease) Hypothyroidism HTN (hypertension) Family History Family History Mother CAD (coronary artery disease) Father CAD (coronary artery disease) Social History Social History Household Members: Significant Other Housing: House Do you presently have visiting nurse or other home services: No Alcohol intake: never Patient Tobacco Use Status: Tobacco use Unknown Smoked in Last 30 Days: No Use of substances other than those prescribed or required for medical reasons: No Advance Directives: No Advance Directives Information Provided: No service: No Current occupational status: retired Physical Exam Vital Signs: Vital Signs: Last Vital Signs Temp 97.6 F 07/04/23 11:33 Pulse 95 07/04/23 11:33 Resp 16 07/04/23 11:33 BP 156/120 H 07/04/23 11:33 Pulse Ox 97 07/04/23 11:33 O2 Del Method Room Air 07/04/23 11:33 BMI result Body Mass Index 23.9 VITAL SIGNS: Reviewed. GENERAL: Well developed, well nourished, in no acute distress. HEAD: Normocephalic/atraumatic EYES: PERRLA, EOMI EARS: Ext canals without abnormality NOSE: Nares patent bilateral OROPHARYNX: no oral lesions noted, posterior pharynx clear NECK: Supple, no adenopathy LUNGS: Normal breath sounds. No adventitious sounds or accessory muscle use. SpO2<97> CARDIOVASCULAR: Regular rate and rhythm without noted murmurs ABDOMEN: Soft, non-tender, non-distended with bowel sounds. MUSCULOSKELETAL: No tenderness, deformities, or effusions noted on gross inspection. EXTREMITIES: No cyanosis, clubbing or edema. SKIN: Inspection of the skin reveals no rashes NEUROLOGIC: Alert and oriented x 2. Strength and sensation to light touch were grossly intact x 4. Medications Administered Discontinued Medications Generic Name Dose Route Start Last Admin Trade Name Freq PRN Reason Stop Dose Admin Diphenhydramine HCl 50 mg 07/04/23 08:57 07/04/23 09:04 Diphenhydramine Hcl 25 Mg Capsule PO 07/04/23 08:58 50 mg ONCE ONE Administration Lorazepam 1 mg 07/04/23 08:57 07/04/23 09:04 Lorazepam 1 Mg Tablet PO 07/04/23 08:58 1 mg ONCE ONE Administration Olanzapine 5 mg 07/04/23 08:20 07/04/23 08:29 Olanzapine 10 Mg Vial IM 07/04/23 08:21 5 mg ONCE ONE Administration Medical Decision Making Medical Decision Making [facility] Narrative: 83-year-old female with history and clinical presentation for mechanical fall, will evaluate to ensure no intracranial bleeding/cervical spine fracture or subluxation the patient does not present with any focal deficits. In addition, will just quickly viral test and check urine for possible contributing factors of gait unsteadiness. I reviewed all investigations and viral testing, daughter reports patient has chronic UTI which is likely demonstrated and patient is currently on antibiotics for this. CT of the head negative for intracranial hemorrhage in otherwise my interpretation is in agreement with radiology's impression. Cervical spine negative for fracture or subluxation otherwise my interpretation is in agreement with radiology's interpretation. CT abdomen pelvis not consistent with hip/pelvis fracture and patient discharged home. Differential Diagnosis Differential Diagnoses: The differential diagnosis associated with the presentation includes Please see the discussion above Admission/Observation Consideration of admission/observation: Escalation of care including admission/observation considered Please see the discussion above Lab Data MDM Lab Attestation statement: I reviewed the patient's lab results. Please see the discussion above Labs: Lab Results 07/04/23 07/04/23 Range/Units 10:15 10:16 Urine Color Yellow Urine Appearance Clear Urine pH 7.5 (5.0-9.0) Ur Specific [place] 1.010 (1.005-1.025) Urine Protein Negative (Neg-Trace) mg/dL Urine Glucose (UA) Negative (Negative) mg/dL Urine Ketones Negative (Negative) mg/dL Urine Blood Negative (Negative) Urine Nitrite Negative (Negative) Ur Leukocyte Esterase Moderate (2+) H (Negative) Urine RBC 0-2 (0-2) /HPF Urine WBC 21-50 H (0-5) /HPF Ur Squamous Epith Cells 6-10 (0-2) /HPF Urine Bacteria 1+ (None Seen) Hyaline Casts 0-2 (0-2) /LPF COVID-19 (KONRAD) Negative (Negative) COVID-19 Clin Com See Note Influenza Type A (CAYETANO) Negative (Negative) Influenza Type B (CAYETANO) Negative (Negative) Influenza A & B Note See Note Radiology Impression Discussion of test interpretation with radiology: I have reviewed the radiologist's reading. Radiologist Impression: Please see the discussion above External Record Review External record reviewed: Outpatient record, Prior outpatient labs and Prior outpatient radiology Chronic Conditions Patient?s care impacted by: Other Dementia Discharge Plan Discharge Clinical Impression: Fall Patient Disposition: Home, Self-Care Instructions: Fall Prevention for Older Adults (ED) Additional Instructions: 1. Recommend resuming all home medications as prescribed. 2. Recommend Tylenol for any aches and pains. 3. Follow-up with primary care provider by calling the office on Wednesday morning and setting up appointment for re-evaluation further outpatient management. Return to the ER for any worsening symptoms. Prescriptions: No Action amlodipine 5 mg tablet 1 tab PO DAILY levothyroxine 100 mcg tablet 1 tab PO DAILY@0600 cefuroxime axetil 500 mg Tablet 500 mg PO BID Qty: 10 0RF quetiapine 25 mg Tablet 12.5 mg PO DAILY@1700 Qty: 0 0RF Referrals: Willie Batista MD [Primary Care Provider] -
[2023-07-04] MEDS: diphenhydrAMINE HCL 25 MG CAPSULE 50 MG PO (09:04)
[2023-07-04] MEDS: LORazepam 1 MG TABLET PO (09:04)
--- NOTE | 2023-07-04 09:11 | PC.NURSE ---
pt's medicated per DEC. daughter requested to bypass the UA, reports that pt is on a daily abx for chronic UTI d/t prolapsed uterus
--- NOTE | 2023-07-04 09:48 | PC.NURSE ---
pt reporting R hip pain. MD aware
--- NOTE | 2023-07-04 10:04 | MHC.EDTECH ---
Patient stated she needed to urinate. Changed from brief, found to be incontinent of stool/urine. Pt cleaned up by t/w and help of RN (Tahira). Patient changed into hospital gown, purewick placed per RN. Patient repositioned in bed.
[2023-07-04 10:22] LABS: Appearance Urine Clear; Color Urine Yellow; Glucose Urine UA Negative (Negative); Leukocyte Esterase Urine Moderate (2+) (Negative); Nitrite Urine Negative (Negative); PH 7.5 (5.0-9.0); UMIC TRIGGER UACC YES; Urine Blood Negative (Negative); Urine Ketones Negative (Negative); Urine Protein Negative (Neg-Trace)
[2023-07-04 10:27] LABS: Bacteria Urine 1+ (None Seen); Hyaline Casts Urine 0-2 /LPF (0-2); RBC Urine 0-2 /HPF (0-2); UACC Culture Trigger YES; WBC Urine 21-50 /HPF (0-5)
[2023-07-04 10:37] LABS: IDNOW Serial# 08D9AD1C; IDNOW Serial# BCCEAD1C; Influenza A Negative (Negative); Influenza B2 Negative (Negative)
[2023-07-04 10:38] LABS: COVID-19 Test Negative (Negative)
[2023-07-04 11:33] VITALS: BP 156/120; PULSE 95; RESP 16; TEMP 36.4; O2SAT 97
--- NOTE | 2023-07-04 13:35 | PC.NURSE ---
this RN assisted pt/famiy into w/c from bed to the car. family noted more difficulty with transfers and walking post fall. Rn emphasized the importance of using her walker at home. pt's boyfriend was adamant that she does not use it regularly and did not need it now. this RN reeducated pt and family about her current status post fall and need for increased safety precautions. family continues to be adamant that going home is safe with current limitations post fall.
== END 2023-07-04 13:40 | disposition home or self-care (01) ==
PROVIDERS: Emergency Provider Student in an Organized Health Care Education/Training Program; PCP Internal Medicine
DX: S09.90XA Unspecified injury of head, initial encounter (principal); M54.2 Cervicalgia; R51.9 Headache, unspecified; R10.2 Pelvic and perineal pain; X58.XXXA Exposure to other specified factors, initial encounter; Y93.9 Activity, unspecified; Y92.9 Unspecified place or not applicable; Y99.9 Unspecified external cause status; Z20.822 Contact with and (suspected) exposure to COVID-19; Z20.828 Contact with and (suspected) exposure to other viral communicable diseases; Z79.899 Other long term (current) drug therapy
CPT/HCPCS: 51702; 70450; 72125; 74176; 81001; 87086; 87502; 87635; 96372; 99284

== ENCOUNTER 2023-07-07 09:02 | Inpatient (IN) | payer MEDICARE, SELFPAY ==
--- NOTE | ~2023-07-07 | XR_ITS ---
EXAMINATION: XR CHEST CLINICAL INFORMATION: Weakness COMPARISON: Chest radiograph from 08/21/2022 TECHNIQUE: Frontal view of the chest was obtained. FINDINGS: Stable elevation of the right hemidiaphragm. Chronic interstitial lung markings. No pneumothorax. Trachea is midline. Cardiac mediastinal silhouette is not enlarged. No large pleural effusion. Degenerative changes of the thoracolumbar joints. Soft tissues are unremarkable XR/XR chest 1V IMPRESSION: No acute cardiopulmonary process.
--- NOTE | ~2023-07-07 | XR_ITS ---
EXAMINATION: XR KNEE, RIGHT CLINICAL INFORMATION: Status post fall COMPARISON: None available. TECHNIQUE: Four views of the right knee. FINDINGS: Small suprapatellar effusion. Severe medial knee joint narrowing. Tricompartment spurring. Quadriceps enthesopathy. No fracture or dislocation. Vascular calcifications. XR/XR knee RT 2V IMPRESSION: Degenerative type changes. Small right suprapatellar effusion. No acute bony pathology.
--- NOTE | ~2023-07-07 | XR_ITS ---
EXAMINATION: XR CHEST CLINICAL INFORMATION: Lethargy COMPARISON: 08/20/2022 and 07/07/2023 TECHNIQUE: 2 views of the chest were obtained. FINDINGS: The right diaphragm is chronically mildly elevated. Lungs are adequately expanded and grossly clear. No airspace disease or pleural effusion. Cardiomediastinal silhouette has stable size and contour. There is atherosclerotic calcification of the aorta. Osteophytes are noted at degenerated glenohumeral joints. Multilevel osteophyte formation of the spine. XR/XR chest 2V IMPRESSION: No radiographic evidence of pneumonia. No acute pulmonary disease compared to 07/07/2023.
--- NOTE | ~2023-07-07 | CT_ITS ---
EXAMINATION: CT HEAD WITHOUT CONTRAST CLINICAL INFORMATION: Head trauma COMPARISON: 07/04/2023 TECHNIQUE: Contiguous axial imaging was performed from the skull base to vertex without intravenous administration of contrast. This CT examination was performed using dose optimization techniques as appropriate, variously including the following: *Automated exposure control *Adjustment of mA and/or kV according to patient size (this includes techniques or standardized protocols for targeted exams where dose is matched to indication/reason for exam; i.e. extremities or head) *Use of iterative reconstruction technique DLP: 669 mGy-cm FINDINGS: Stable mild atrophy and periventricular white matter changes. No intracranial hemorrhage, extra-axial fluid collections, developing infarct, mass lesion, mass effect or midline shift seen. No cranial fractures or soft tissue hematomas. Trace bilateral maxillary mucosal disease. Left mastoid is clear. Unchanged partial opacification right mastoid. CT/CT head/brain wo IV con IMPRESSION: No acute intracranial pathology. Chronic small vessel ischemia and volume loss.
[2023-07-07 09:12] VITALS: BP 130/80; PULSE 79; PULSE 86; RESP 18; TEMP 36.4; O2SAT 96; O2SAT 97; BMI 31.2
--- NOTE | 2023-07-07 09:19 | ECG_ITS ---
Test Reason : fall Blood Pressure : / mmHG Vent. Rate : 076 BPM Atrial Rate : 076 BPM P-R Int : 136 ms QRS Dur : 076 ms QT Int : 384 ms P-R-T Axes : 050 022 050 degrees QTc Int : 432 ms Normal sinus rhythm Possible Left atrial enlargement Low voltage QRS Nonspecific ST abnormality Abnormal ECG When compared with ECG of 28-AUG-2022 09:58, No significant change was found Referred By: Trinidad Horn Electronically Signed By:PHILIPP IVY
--- NOTE | 2023-07-07 09:55 | ED.GENADULT ---
HPI - General Adult General Chief complaint: General Medical Stated complaint: DIZZY,FALL/SEEN WEDNESDAY PER EMS Time Seen by Provider: 07/07/23 09:12 Source: patient, family and old records reviewed Mode of arrival: EMS Limitations: other (cognitive impairment) History of Present Illness HPI narrative: 83 yo female with hx of UTI (fishman sensitive E. Coli in the past), dementia, prolapsed uterus who daughter reports is on daily 250mg cephalexin to prevent UTI who was here Wednesday after mechanical fall - had normal CT head and Cspine as well at CT abdomen/pelvis that did not show any acute trauma. urine culture from that visit was contamination. Daughter notes since she has gone home she has told her 81 year old boyfriend whom she lives with that she feels weak and dizzy and has body aches. The patient seems slightly more confused and told her daughter she is very dizzy. Her boyfriend is having a hard time getting her around the house. The daughter states she was told to stop the seroquel but I do not see this in the ED visit she did not take it yesterday. The patient states she is fine but doesn't know where she is. complaint: dizziness, body aches Onset (ago): day(s) (2) Location: head Radiation: non-radiation Severity: moderate Quality: aching Pain Consistency: intermittent Relieving factors: none Exacerbating factors: movement Associated symptoms: headaches, loss of appetite and malaise Treatments prior to arrival: none Related Data Home Medications Medication Instructions Recorded Confirmed amlodipine 5 mg tablet 1 tab PO DAILY 08/20/22 08/20/22 levothyroxine 100 mcg tablet 1 tab PO DAILY@0600 08/20/22 08/20/22 Previous Rx's Medication Instructions Recorded cefuroxime axetil 500 mg tablet 500 mg PO BID #10 tabs 08/28/22 quetiapine 25 mg tablet 12.5 mg (1/2 x 25 mg) PO 08/28/22 DAILY@1700 #0 tabs Allergies Allergy/AdvReac Type Severity Reaction Status Date / Time No Known Allergies Allergy Verified 08/20/22 08:51 Review of Systems Review of Systems: ROS unable to be obtained due to cognitive impairment PMFSH Past Medical History Medical History AD (Alzheimer's disease) Hypothyroidism HTN (hypertension) Family History Family History Mother CAD (coronary artery disease) Father CAD (coronary artery disease) Social History Social History Household Members: Significant Other Housing: House Do you presently have visiting nurse or other home services: No Alcohol intake: never Patient Tobacco Use Status: Tobacco use Unknown Advance Directives: No Advance Directives Information Provided: Yes service: No Current occupational status: retired Physical Exam ED Vital Signs: Vital Signs - 24 hr 07/07/23 09:12 07/07/23 10:19 Temperature 97.6 F Pulse Rate 79 Respiratory Rate 18 Blood Pressure 136/84 Pulse Oximetry 97 Oxygen Delivery Method Room Air BMI result Body Mass Index 31.2 Appearance: Alert. Oriented to person and place. No acute distress. Eyes: Pupils equal, round and reactive to light. ENT: Pharynx normal. Neck: Normal inspection. Neck supple. CVS: Normal heart rate and rhythm. Pulses normal. Respiratory: No respiratory distress. Breath sounds normal. Abdomen: Soft and nontender. Skin: Skin warm and dry. Normal skin color. Normal skin turgor. Extremities: No lower extremity edema. Neuro: Oriented X 2. No motor deficit. No sensory deficit. Course Course Course Narrative: urine is similar to 09/08 when she had E. COli infection at this time will dose with ceftriaxone and attempt ambulation trial afebrile, no signs of sepsis at this time infection suspected 1105am Reevaluation(s) Reevaluation #1: doesn't qualify for inpatient admission - no fevers, no vomiting, no sepsis, gait is not new per daughter they have been working on it for 1 year. she wants her admitted for UTI and dizziness that started after the falls - two negative CT head would need sedation if this is posterior stroke to get MRI and she would be out of window treatment - risks outweigh benefit. 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 hospitalist does not see inpatient criteria needs at this time. Patient placed in physician observation at 226pm. The indication for observation is that the patient needs more time to to see if their dizziness improves and safe DC planning. At this time the patient is well developed well nourished, lungs clear, CV RRR, abd nontender, neuro is at baseline Medications Administered Discontinued Medications Generic Name Dose Route Start Last Admin Trade Name Sunny PRN Reason Stop Dose Admin Ceftriaxone Sodium 1 gm/ 50 mls @ 100 mls/hr 07/07/23 11:04 07/07/23 12:29 Sodium Chloride IV 07/07/23 11:33 Infused ONCE ONE Infusion Medical Decision Making Medical Decision Making [facility] Narrative: 83 yo female with hx of UTI (fishman sensitive E. Coli in the past), dementia, prolapsed uterus who daughter reports is on daily 250mg cephalexin to prevent UTI here with body aches, dizziness and not feeling well since yesterday. No discrete pain no CP/SOB but she has dementia. At this time will obtain labs, EKG, CXR and UA. CT head for delayed SDH though would be rare. No extremity or back pain reported. Possible dehydration or viral syndrome. There may be a concern for safety at home as well. Differential Diagnosis Differential Diagnoses: The differential diagnosis associated with the presentation includes SDH, dehydration, UTI, COVID, rhabdo Admission/Observation Consideration of admission/observation: Escalation of care including admission/observation considered Lab Data [facility] Lab Attestation statement: I reviewed the patient's lab results. 07/07/23 09:59 07/07/23 09:59 Labs: Lab Results 07/07/23 07/07/23 Range/Units 09:59 10:17 WBC 11.5 H (4.8-10.8) X10*3/uL RBC 4.34 D (4.20-5.50) X10*6/uL Hgb 13.5 D (12.0-16.0) g/dl Hct 40.1 D (37.0-47.0) % MCV 92.4 (80.0-98.0) fL MCH 31.1 (27.0-33.0) pg MCHC 33.7 (31.0-35.0) g/dl RDW 13.4 (11.0-16.0) % Plt Count 323 D (160-400) X10*3/uL MPV 9.6 (9.4-12.3) fL Immature Gran % (Auto) 0.5 H (0.0-0.4) % Neut % (Auto) 67.6 (45-73) % Lymph % (Auto) 20.8 (20-40) % Giles % (Auto) 10.3 (2-11) % Eos % (Auto) 0.5 (0-4) % Baso % (Auto) 0.3 (0-2) % Lymph # (Auto) 2.4 (1.2-4.9) X10*3/uL Giles # (Auto) 1.2 (0.1-1.2) X10*3/uL Eos # (Auto) 0.1 (0.0-0.4) X10*3/uL Baso # (Auto) 0.0 (0.0-0.2) X10*3/uL Abs Immat Gran (auto) 0.06 H (0.00-0.03) X10*3/uL Absolute Neuts (auto) 7.8 (2.0-8.3) x10*3/uL Absolute Nucleated RBC 0.000 (0.0-0.012) X10*3/uL Nucleated RBC % (auto) 0.0 (0.0-0.2) /100WBC Sodium 138 (135-145) mmol/L Potassium 4.2 (3.3-5.1) mmol/L Chloride 104 (96-108) mmol/L Carbon Dioxide 26 (22-29) mmol/L Anion Gap 12 (12-20) BUN 18 H (9-16) mg/dL Creatinine 0.84 (0.5-1.4) mg/dL Estim Creat Clear Calc 52.5 Estimated GFR > 60 Random Glucose 118 H (60-115) mg/dL Lactic Acid 1.1 (0.5-2.0) mmol/L Calcium 9.8 D (8.4-10.2) mg/dL Magnesium 2.2 (1.6-2.6) mg/dL Total Bilirubin 0.4 (0.0-1.0) mg/dL Direct Bilirubin 0.2 (0.0-0.5) mg/dL AST 24 (5-31) U/L ALT 12 (0-31) U/L Alkaline Phosphatase 89 (39-117) U/L Total Creatine Kinase 60 (26-140) U/L Troponin I High Sens < 2.7 (<3.5-17.0) ng/L Total Protein 8.2 H (6.5-8.0) g/dL Albumin 4.1 (3.5-5.0) g/dL Urine Color Yellow Urine Appearance Cloudy Urine pH 6.5 (5.0-9.0) Ur Specific [place] 1.015 (1.005-1.025) Urine Protein Trace (Neg-Trace) mg/dL Urine Glucose (UA) Negative (Negative) mg/dL Urine Ketones Negative (Negative) mg/dL Urine Blood Trace H (Negative) Urine Nitrite Negative (Negative) Ur Leukocyte Esterase Large (3+) H (Negative) Urine RBC 0-2 (0-2) /HPF Urine WBC >50 H (0-5) /HPF Ur Squamous Epith Cells 0-2 (0-2) /HPF Urine Bacteria 3+ (None Seen) Hyaline Casts 0-2 (0-2) /LPF COVID-19 (KONRAD) Negative (Negative) COVID-19 Clin Com See Note Independent Interpretation I performed an independent interpretation of an: EKG, Plain X-Ray (no pneumonia) and CT Scan (no ICH) Interpretation: Rate: 76 Rhythm: NSR [place]: normal Normal P waves. Normal CLAU. Normal QRS complex. ST T wave : no UDAY, nonspecific but artifact noted qTC: normal prior studies: no acute ischemia The study has been interpreted contemporaneously by me. . Radiology Impression Discussion of test interpretation with radiology: I have reviewed the radiologist's reading. Independent Historian Clinical information obtained from an independent historian. History obtained from or confirmed by: EMS and Other (daughter) External Record Review External record reviewed: Inpatient record Discharge Plan Discharge Clinical Impression: Acute UTI Patient Disposition: Still a Patient Prescriptions: No Action amlodipine 5 mg tablet 1 tab PO DAILY levothyroxine 100 mcg tablet 1 tab PO DAILY@0600 cefuroxime axetil 500 mg Tablet 500 mg PO BID Qty: 10 0RF quetiapine 25 mg Tablet 12.5 mg PO DAILY@1700 Qty: 0 0RF
[2023-07-07 10:04] LABS: MANUAL DIFF FLAG NO
[2023-07-07 10:11] LABS: Basophils Percent Auto 0.3 % (0-2); Eosinophils Absolute Auto 0.1 X10*3/uL (0.0-0.4); Eosinophils Percent Auto 0.5 % (0-4); Hematocrit 40.1 % (37.0-47.0); Hemoglobin 13.5 g/dl (12.0-16.0); Imm Gran Abs Auto 0.06 X10*3/uL (0.00-0.03); Imm Gran Pct Auto 0.5 % (0.0-0.4); Lymphocytes Absolute Auto 2.4 X10*3/uL (1.2-4.9); Lymphocytes Percent Auto 20.8 % (20-40); Mean Corpuscular HGB Conc 33.7 g/dl (31.0-35.0); Mean Corpuscular Hemoglobin 31.1 pg (27.0-33.0); Mean Corpuscular Volume 92.4 fL (80.0-98.0); Mean Platelet Volume 9.6 fL (9.4-12.3); Monocytes Absolute Auto 1.2 X10*3/uL (0.1-1.2); Monocytes Percent Auto 10.3 % (2-11); Neutrophils Absolute Auto 7.8 x10*3/uL (2.0-8.3); Neutrophils Percent Auto 67.6 % (45-73); Platelet Count 323 X10*3/uL (160-400); Red Blood Count 4.34 X10*6/uL (4.20-5.50); Red Cell Distribution Width 13.4 % (11.0-16.0); White Blood Count 11.5 X10*3/uL (4.8-10.8)
[2023-07-07 10:18] LABS: COVID-19 Test Negative (Negative); IDNOW Serial# BCCEAD1C
[2023-07-07 10:19] VITALS: BP 136/84
[2023-07-07 10:22] LABS: Lactic Acid 1.1 mmol/L (0.5-2.0)
[2023-07-07 10:26] LABS: Alanine Aminotransferase 12 U/L (0-31); Albumin Level 4.1 g/dL (3.5-5.0); Alkaline Phosphatase 89 U/L (39-117); Anion Gap 12 (12-20); Aspartate Amino Transferase 24 U/L (5-31); Bilirubin Direct 0.2 mg/dL (0.0-0.5); Bilirubin Total 0.4 mg/dL (0.0-1.0); Blood Urea Nitrogen 18 mg/dL (9-16); Calcium 9.8 mg/dL (8.4-10.2); Carbon Dioxide 26 mmol/L (22-29); Chloride 104 mmol/L (96-108); Creatinine Clr Calc Pharmacy 52.5; Estimated Glomerular Filt Rate > 60; Glucose Random 118 mg/dL (60-115); Magnesium 2.2 mg/dL (1.6-2.6); Potassium 4.2 mmol/L (3.3-5.1); Sodium 138 mmol/L (135-145); Total Protein 8.2 g/dL (6.5-8.0)
[2023-07-07 10:33] LABS: Appearance Urine Cloudy; Color Urine Yellow; Glucose Urine UA Negative (Negative); Leukocyte Esterase Urine Large (3+) (Negative); Nitrite Urine Negative (Negative); PH 6.5 (5.0-9.0); Specific Gravity - Urine 1.015 (1.005-1.025); UMIC TRIGGER UACC YES; Urine Blood Trace (Negative); Urine Ketones Negative (Negative); Urine Protein Trace mg/dL (Neg-Trace)
[2023-07-07 10:38] LABS: Bacteria Urine 3+ (None Seen); Hyaline Casts Urine 0-2 /LPF (0-2); RBC Urine 0-2 /HPF (0-2); Squamous Epithelial Cell Urine 0-2 /HPF (0-2); UACC Culture Trigger YES; WBC Urine >50 /HPF (0-5)
[2023-07-07 10:49] LABS: Troponin-I High Sensitivity < 2.7 ng/L (<3.5-17.0)
[2023-07-07] MEDS: cefTRIAXone sodium 1 GM in 0.9 % Sodium Chloride 50 ML IV (11:37)
--- NOTE | 2023-07-07 13:34 | MHC.CM.PN ---
CM MET WITH PT AND DAUGHTER AT BEDSIDE CM EXPLAINED THE NEED FOR A QUALIFYING STAY IN ORDER FOR MEDICARE TO COVER STR CM DID EXPLAIN PT COULD PRIVATE PAY, PTS DAUGHTER REPORTS SHE DOES NOT HAVE THE MEANS THEY ARE AWARE PT COULD HAVE [facility] SERVICES FOR NURSING/PHYSICAL THERAPY PER DISCUSSION, CM WILL MAKE A REFERRAL FOR VNA SERVICES PT DAUGHTER DID REITERATE, SHE HOPES THE PT COULD BE ADMITTED IF THERE WAS ANYTHING NEW LEARNED CM ASSURED HER THE DOCTORS WILL ADMIT THE PT IF SHE HAS ANYTHING REQUIRING ACUTE CARE THE PHYSICAL THERAPIST IS CURRENTLY EVALUATING PT
[2023-07-07 18:00] VITALS: PULSE 93; RESP 16; O2SAT 95
[2023-07-07 18:39] VITALS: BP 128/84
[2023-07-07] MEDS: amLODIPine Besylate 5 MG TABLET PO (18:46)
[2023-07-07] MEDS: QUEtiapine Fumarate 25 MG TABLET 12.5 MG PO (18:47)
--- NOTE | 2023-07-07 18:49 | PC.NURSE ---
pt remains in physobs throughout day. pt alert, and oriented to person, but not place or situation. pt cannot tolerate automatic BP without yells of pain and aggressive behavior, manual BP with encouragement is tolerable. med rec done and evening meds given. \ purewick in, 200ml in drainage container. Pt needs some encouragement to void. Pt eating dinner with assistance of daughter. positive for UTI, PO abx starting tonight after IV abx. pain to right knee
--- NOTE | 2023-07-07 19:19 | PHA.MEDREC ---
Pharmacy Consult ? Medication Reconciliation Pharmacy has reviewed the medication reconciliation completed by alexis.
--- NOTE | 2023-07-07 23:22 | PC.NURSE ---
This television script writer assumed care at 1900, pt is AO to self, pt appears to be sleeping in stretcher awakens with tactile stimuli. Pt medicated per DEC. pt denies any pain. Pt is resting, with no apparent distress.
[2023-07-07 23:46] VITALS: BP 122/57; PULSE 95; RESP 18; TEMP 37; O2SAT 93
[2023-07-08 04:38] VITALS: BP 138/62; PULSE 80; RESP 18
[2023-07-08] MEDS: Levothyroxine Sodium 100 MCG TABLET PO (06:16)
[2023-07-08] MEDS: amLODIPine Besylate 5 MG TABLET PO (07:58)
[2023-07-08 08:16] VITALS: BP 162/69; PULSE 105; RESP 15; O2SAT 97
--- NOTE | 2023-07-08 08:39 | MHC.CM.PN ---
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 DAWOOD REPORTS IF THE PT SHOWS IMPROVEMENT IN STRENGTH, SHE WOULD LIKE HER TO RETURN HOME, BUT AT THIS TIME, SHE WOULD LIKE TO CONTINUE SEEKING LTC THE PT IS UNABLE TO GET UP AND AMBULATE ON HER OWN SHE SAYS THE PT WAS NOT GOING FAR DISTANCES BEFORE, HOWEVER WAS ABLE TO GO TO THE REST ROOM ON HER OWN SHE SAYS THE PT LIVES WITH HER S/O AND THEY HAVE AN AID DURING THE DAY THE PT HAS A WALKER BUT 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
--- NOTE | 2023-07-08 11:52 | PC.NURSE ---
patient has been changed and repositioned, needs being met. seen by PT daughter has been at bedside
--- NOTE | 2023-07-08 16:34 | PC.NURSE ---
changed and repositioned due to urinary incontinence.
[2023-07-08] MEDS: QUEtiapine Fumarate 25 MG TABLET 12.5 MG PO (17:03)
[2023-07-09] VITALS (9 sets, daily range): BP systolic 131–169; BP diastolic 59–80; PULSE 89–114; RESP 13–26; TEMP 36.2–38.6; O2SAT 92–97; BMI 31.2
[2023-07-09] MEDS: Levothyroxine Sodium 100 MCG TABLET PO (06:42)
--- NOTE | 2023-07-09 09:29 | ECG_ITS ---
Test Reason : LETHARGY Blood Pressure : / mmHG Vent. Rate : 108 BPM Atrial Rate : 108 BPM P-R Int : 134 ms QRS Dur : 084 ms QT Int : 298 ms P-R-T Axes : 038 027 005 degrees QTc Int : 399 ms Sinus tachycardia Nonspecific T wave abnormality Abnormal ECG When compared with ECG of 07-JUL-2023 09:30, ST no longer elevated in Inferior leads Nonspecific T wave abnormality now evident in Inferior leads Nonspecific T wave abnormality, worse in Anterolateral leads Referred By: Jazmin oHdge Electronically Signed By:PHILIPP IVY
[2023-07-09] MEDS: amLODIPine Besylate 5 MG TABLET PO (09:30)
--- NOTE | 2023-07-09 09:37 | PC.NURSE ---
First contact with patient. Daughter at bedside-stated that patient is more confused than usual with decreased LOC. Confused at present. Skin flushed/warm. Rectal temp 101.4 and HR 110. Jazmin Hodge notified. Pt to be moved over to Main at [facility] request for septic workup. Report to be called to Radha FRANKLIN. LS-dim yoly with no dyspnea noted. Abd soft ND/NT +BS. No skin breakdown noted. Incontinent of urine. jose de jesus care given. Repositioned in bed. Upon repositioning, complains of all over body pain. s/p fall at home per daughter.
[2023-07-09] MEDS: Acetaminophen Supp 650 MG SUPP.RECT PR (10:16)
[2023-07-09] MEDS: 0.9 % Sodium Chloride 1,000 ML 999 ML IV (10:25)
[2023-07-09] MEDS: cefTRIAXone sodium 1 GM in 0.9 % Sodium Chloride 50 ML IV (11:20)
[2023-07-09 11:31] LABS: Basophils Percent Auto 0.2 % (0-2); Hematocrit 35.5 % (37.0-47.0); Imm Gran Abs Auto 0.07 X10*3/uL (0.00-0.03); Imm Gran Pct Auto 0.5 % (0.0-0.4); Lymphocytes Absolute Auto 2.5 X10*3/uL (1.2-4.9); Lymphocytes Percent Auto 16.9 % (20-40); MANUAL DIFF FLAG SCAN; Mean Corpuscular HGB Conc 33.8 g/dl (31.0-35.0); Mean Corpuscular Hemoglobin 31.1 pg (27.0-33.0); Mean Platelet Volume 9.6 fL (9.4-12.3); Monocytes Absolute Auto 2.6 X10*3/uL (0.1-1.2); Monocytes Percent Auto 17.3 % (2-11); Neutrophils Absolute Auto 9.7 x10*3/uL (2.0-8.3); Neutrophils Percent Auto 65.1 % (45-73); Platelet Count 266 X10*3/uL (160-400); Red Blood Count 3.86 X10*6/uL (4.20-5.50); SCAN SMEAR FLAG 1; White Blood Count 14.9 X10*3/uL (4.8-10.8)
[2023-07-09 11:33] LABS: Lactic Acid 0.8 mmol/L (0.5-2.0)
[2023-07-09 11:38] LABS: Alanine Aminotransferase 10 U/L (0-31); Albumin Level 3.4 g/dL (3.5-5.0); Alkaline Phosphatase 76 U/L (39-117); Anion Gap 11 (12-20); Aspartate Amino Transferase 20 U/L (5-31); Bilirubin Direct 0.2 mg/dL (0.0-0.5); Bilirubin Total 0.5 mg/dL (0.0-1.0); Blood Urea Nitrogen 31 mg/dL (9-16); Calcium 8.7 mg/dL (8.4-10.2); Carbon Dioxide 23 mmol/L (22-29); Chloride 105 mmol/L (96-108); Creatinine Clr Calc Pharmacy 46.5; Estimated Glomerular Filt Rate 56; Glucose Random 115 mg/dL (60-115); Sodium 135 mmol/L (135-145); Total Protein 7.1 g/dL (6.5-8.0)
[2023-07-09 12:08] LABS: Influenza A PCR NEGATIVE (Negative); Influenza B PCR NEGATIVE (Negative); Resp Syncy Virus RNA Qual PCR NEGATIVE (Negative); SARS COV2 PCR INHOUSE NEGATIVE (Negative)
[2023-07-09 12:09] LABS: SLIDE REVIEW VERIFIED
--- NOTE | 2023-07-09 12:32 | MHC.CM.ED ---
Addendum entered by Francine Sr 07/09/23 14:19: Per ED provider: pend placement efforts at this time although no order for admission noted. ED CM to await determination Original Note: Pt initially referred to ED CM for d/c planning needs including ? STR. Upon review of clinical, pt appears to have worsened with a temp of 101, HR >110, WBC >12 and + UTI findings w/increased confusion. Message sent to ED provider re: possible admission status given the above findings. ED CM to await response
--- NOTE | 2023-07-09 13:35 | PC.NURSE ---
patient did not meet sepsis criteria, patient resting in hospital bed, appears to be sleeping, VSS, respirations equal and unlabored. patients family at bedside
--- NOTE | 2023-07-09 14:50 | PC.NURSE ---
pt has been resting quietly, daughters at the bedside/ will return to [facility] to await disposition
--- NOTE | 2023-07-09 14:53 | PC.NURSE ---
called report and talked to overflow RN, pt being transferred back to overflow, VSS and afebrile
--- NOTE | 2023-07-09 15:15 | PC.NURSE ---
Assumed care of patient at this time. Patient sitting in recliner, calm at this time.
[2023-07-09] MEDS: Ampicillin Sodium/Sulbactam Na 3 GM in 0.9 % Sodium Chloride 100 ML IV (16:23)
--- NOTE | 2023-07-09 16:26 | P.HPHOSP_ITS ---
History of Present Illness Date of Service: 07/09/23 Attending physician on admission: Francisco Todd Chief Complaint: AMS Pt is an 83-year-old female with a PMH significant for?HTN, hypothyroidism, and advanced dementia who initially presented to the emergency department on 07/04/2023 for evaluation?after fall at home. Workup at that time was negative, including CT of abdomen and pelvis, cervical spine CT, and head CT. Urine culture contaminated from that visit. Pt was sent home without any medication changes. Patient then re-presented to the emergency department on 07/07/2023 with daughter stating that since patient had been sent home she has been feeling weak, dizzy, and with body aches, and seems more confused than normal. Workup at that time included UA that was positive for UTI and patient was started on Ceftin. Repeat head CT that was again negative for acute intracranial pathology. Patient at that time did not qualify for inpatient admission as patient was afebrile, WBC 11.5, and not meeting sepsis criteria. Patient's family seems to be looking for a safe discharge plan with possible rehab/long-term medical care or discharged on services. Patient was thus placed into position observation for resolution dizziness and safe discharge planning. Earlier today patient's rectal temperature spiked to 101.4, she was tachycardic up to 110, and patient was reported to be extremely lethargic and more confused normal. Patient was brought back to the ED for additional workup and found to be combative and agitated. Repeat labs showed WBC of 14.9 with lactic acid 0.8 and repeat 1.1. Patient now meeting SIRS criteria, and will be admitted to the hospital for treatment further evaluation of sepsis in the setting of acute UTI. Review of Systems 2 Review of Systems: Unable to obtain due to patient's mentation [facility] Medical History AD (Alzheimer's disease) Hypothyroidism HTN (hypertension) Family History Mother CAD (coronary artery disease) Father CAD (coronary artery disease) Social History Household Members: Significant Other Housing: House Do you presently have visiting nurse or other home services: No Alcohol intake: never Patient Tobacco Use Status: Tobacco use Unknown Smoked in Last 30 Days: No Use of substances other than those prescribed or required for medical reasons: No Advance Directives: No Advance Directives Information Provided: Yes service: No Current occupational status: retired Meds Allergies Allergy/AdvReac Type Severity Reaction Status Date / Time No Known Allergies Allergy Verified 08/20/22 08:51 Active Medications: Current Medications Amlodipine Besylate (Amlodipine Besylate 5 Mg Tablet) 5 mg PO DAILY [facility]; Protocol Last Admin: 07/09/23 09:30 Dose: 5 mg Cefuroxime Axetil (Cefuroxime Axetil 250 Mg Tablet) 250 mg PO BID [facility] Last Admin: 07/09/23 06:42 Dose: 250 mg Levothyroxine Sodium (Levothyroxine Sodium 100 Mcg Tablet) 100 mcg PO DAILY@0600 [facility] Last Admin: 07/09/23 06:42 Dose: 100 mcg Quetiapine Fumarate (Quetiapine Fumarate 25 Mg Tablet) 12.5 mg PO DAILY@1700 [facility] Last Admin: 07/08/23 17:03 Dose: 12.5 mg Home Medications Medication Instructions Recorded Confirmed Last Taken Type amlodipine 5 mg tablet 1 tab PO DAILY 08/20/22 07/07/23 08/19/22 History levothyroxine 100 mcg tablet 1 tab PO DAILY@0600 08/20/22 07/07/23 08/19/22 History cephalexin 250 mg capsule 250 mg PO DAILY 07/07/23 07/07/23 Unknown History Physical Exam 2 Vital Signs and Narrative: Vital Signs: Last Vital Signs Temp 98.9 F 07/09/23 12:23 Pulse 100 07/09/23 12:03 Resp 13 07/09/23 12:03 BP 131/63 07/09/23 12:03 Pulse Ox 94 07/09/23 12:03 O2 Del Method Room Air 07/09/23 12:03 O2 Flow Rate 95 07/08/23 04:38 FiO2 92 07/09/23 07:53 BMI result Body Mass Index 31.2 General: AOx1, confused, agitated, no acute distress Resp: CTA bilaterally CVS: S1, S2, RRR GI: +BS, NT, no distention Skin: No rash Neuro: Cranial nerves II-XII grossly intact bilaterally. Motor grossly intact bilaterally Extremities: No edema Results Labs 07/09/23 11:17 07/09/23 11:17 Labs: Laboratory Results - last 24 hr 07/09/23 07/09/23 07/09/23 11:15 11:16 11:17 MCV 92.0 MCH 31.1 MCHC 33.8 RDW 14.0 Plt Count 266 MPV 9.6 Immature Gran % (Auto) 0.5 H Neut % (Auto) 65.1 Lymph % (Auto) 16.9 L [place] % (Auto) 17.3 H Eos % (Auto) 0.0 Baso % (Auto) 0.2 Lymph # (Auto) 2.5 [place] # (Auto) 2.6 H Eos # (Auto) 0.0 Baso # (Auto) 0.0 Abs Immat Gran (auto) 0.07 H Absolute Neuts (auto) 9.7 H Absolute Nucleated RBC 0.000 Nucleated RBC % (auto) 0.0 Smear Tech's Comments VERIFIED Anion Gap 11 L Estim Creat Clear Calc 46.5 Estimated GFR 56 Random Glucose 115 Lactic Acid 0.8 Calcium 8.7 D Total Bilirubin 0.5 Direct Bilirubin 0.2 AST 20 ALT 10 Alkaline Phosphatase 76 Total Protein 7.1 Albumin 3.4 L Influenza Type A (PCR) NEGATIVE Influenza Type B (PCR) NEGATIVE RSV RNA Qual (PCR) NEGATIVE SARS-CoV-2 RNA (RT-PCR) NEGATIVE Imaging Radiologist's Impressions: Impressions Chest X-Ray 07/09/23 11:55 IMPRESSION: No radiographic evidence of pneumonia. No acute pulmonary disease compared to 07/07/2023. Assessment and Plan (1) Acute UTI: Status: Acute (2) Acute encephalopathy: Status: Acute (3) Sepsis: Status: Acute Plan Pt is an 83-year-old female with a PMH significant for?HTN, hypothyroidism, and advanced dementia who initially presented to the emergency department on 07/04/2023 for evaluation?after fall at home and then again on 07/07/2023 for dizziness, increased confusion. Patient was diagnosed with UTI and placed in physician observation for safe disposition upon discharge. While a physician observation patient developed fever, leukocytosis, tachycardia, tachypnea and met SIRS criteria. Patient will be admitted to the hospital for treatment further evaluation of sepsis in the setting of UTI. Sepsis in the setting of UTI Patient meets sepsis criteria: UTI, WBC, tachycardia, tachypnea Patient initially started on Ceftin, switched to ceftriaxone, then to Unasyn Preliminary culture results show Enterococcus/Streptococcus Will continue Unasyn, started 07/09/2023 Pt received IVF earlier in the day while in physician observation Follow cultures, CBC, BMP Acute metabolic encephalopathy Likely secondary to sepsis and UTI Patient with increased aggression, agitation, restlessness Patient eats soft diet at home without difficulty swallowing, will have diet chopped/advanced for now Treat as above Monitor mentation Advanced dementia Pt with increasing agitation, reslessness, and combativeness Will change Seroquel to 12.5 mg b.i.d. PT evaluation HTN Acceptable control of BP on current therapies Continue amlodipine Hypothyroidism Continue levothyroxine DNR/DNI Attending:?Dr. Todd DVT Prophylaxis: Lovenox Pt will require a hospitalization of at least two nights for treatment of?acute metabolic encephalopathy and sepsis in the setting of acute UTI requiring IV antibiotics, and close monitoring. Time Spent With Patient Time: Total time managing care of this patient today ____ minutes. Quality Stroke Does the patient have a stroke diagnosis?: No VTE Prior VTE?: No VTE Risk Level:: Medical - moderate - high VTE Device Contraindication: Treatment Not Indicated VTE Drug Contraindication: N/A - Med Ordered
[2023-07-09] MEDS: QUEtiapine Fumarate 25 MG TABLET 12.5 MG PO (17:09)
[2023-07-09] MEDS: Enoxaparin Sodium 40 MG/0.4 ML SYRINGE SUBCUT (17:32)
[2023-07-09] MEDS: Acetaminophen 325 MG TABLET 650 MG PO (17:35)
--- NOTE | 2023-07-09 17:56 | MHC.EDTECH ---
THIS PCT ASSUMED CARE OF PT VITALS SIGN TAKEN ,PT BOTH DAUGHTER IS HERE ,PATIENT WAS FED BY HER DAUGHTER ATE 50 % OF MEAL AND DRANK 240 ML FLUIDS ,AFTER DINNER PT WAS INCONIENT OF URINE ,CARE GIVEN LINEN CHANGE .
[2023-07-09] MEDS: 0.9 % Sodium Chloride Flush 3 ML SYRINGE IVFLUSH (20:08)
[2023-07-10 04:00] VITALS: BP 139/73; PULSE 119; RESP 22; TEMP 36.9
[2023-07-10] MEDS: Levothyroxine Sodium 100 MCG TABLET PO (05:05)
[2023-07-10] MEDS: Acetaminophen 325 MG TABLET 650 MG PO ×3 (05:05→17:29)
[2023-07-10 06:16] VITALS: PULSE 98; RESP 18
[2023-07-10 06:44] LABS: Hematocrit 35.6 % (37.0-47.0); Hemoglobin 11.5 g/dl (12.0-16.0); Mean Corpuscular HGB Conc 32.3 g/dl (31.0-35.0); Mean Corpuscular Hemoglobin 29.9 pg (27.0-33.0); Mean Corpuscular Volume 92.7 fL (80.0-98.0); Mean Platelet Volume 11.2 fL (9.4-12.3); Platelet Count 223 X10*3/uL (160-400); Red Blood Count 3.84 X10*6/uL (4.20-5.50); Red Cell Distribution Width 14.1 % (11.0-16.0); White Blood Count 13.6 X10*3/uL (4.8-10.8)
[2023-07-10 06:56] LABS: Anion Gap 13 (12-20); Blood Urea Nitrogen 28 mg/dL (9-16); Calcium 9.3 mg/dL (8.4-10.2); Carbon Dioxide 22 mmol/L (22-29); Chloride 104 mmol/L (96-108); Estimated Glomerular Filt Rate 57; Glucose Random 140 mg/dL (60-115); Potassium 4.2 mmol/L (3.3-5.1); Sodium 135 mmol/L (135-145)
[2023-07-10 06:57] VITALS: BP 130/74; PULSE 101; RESP 18; TEMP 36; O2SAT 93
[2023-07-10] MEDS: amLODIPine Besylate 5 MG TABLET PO (07:44)
[2023-07-10] MEDS: QUEtiapine Fumarate 25 MG TABLET 12.5 MG PO ×3 (07:44→20:31)
[2023-07-10] MEDS: 0.9 % Sodium Chloride Flush 3 ML SYRINGE IVFLUSH ×2 (07:45→20:32)
[2023-07-10] MEDS: traMADoL HCL 50 MG TABLET PO (13:54)
[2023-07-10 15:00] VITALS: BP 125/68; PULSE 101; RESP 20; TEMP 36.8; O2SAT 93
--- NOTE | 2023-07-10 15:24 | P.PNIM_ITS ---
Subjective Subjective Date of Service: 07/10/23 Interval History: Remains confused. T-max 101.5 degrees Review of Systems Unable to obtain Physical Exam 2 Vital Signs: Vital Signs: Last Vital Signs Temp 98.2 F 07/10/23 15:00 Pulse 101 H 07/10/23 15:00 Resp 20 07/10/23 15:00 BP 125/68 07/10/23 15:00 Pulse Ox 93 07/10/23 15:00 O2 Del Method Room Air 07/10/23 15:00 O2 Flow Rate 95 07/08/23 04:38 FiO2 92 07/09/23 07:53 BMI result Body Mass Index 31.2 Const: Other: Awake confused Resp: Other: Clear to auscultation bilaterally no rales rhonchi or wheezes Cardio: Other: No S4; positive S1-S2; no S3 murmurs rubs or gallops GI: Other: Soft nontender nondistended normoactive bowel sounds Extrem: Other: No edema bilaterally Objective Data Active Medications Acetaminophen (Acetaminophen 325 Mg Tablet) 650 mg PO Q6H PRN PRN Reason: Pain, Mild (Pain Scale 1-3) Last Admin: 07/10/23 11:00 Dose: 650 mg Documented By: IRISH Amlodipine Besylate (Amlodipine Besylate 5 Mg Tablet) 5 mg PO DAILY [facility]; Protocol Last Admin: 07/10/23 07:44 Dose: 5 mg Documented By: IRISH Docusate Sodium (Docusate Sodium 100 Mg Capsule) 100 mg PO DAILY PRN PRN Reason: Constipation Enoxaparin Sodium (Enoxaparin Sodium 40 Mg/0.4 Ml Syringe) 40 mg SUBCUT Q24H [facility] Last Admin: 07/09/23 17:32 Dose: 40 mg Documented By: DEONTE Levothyroxine Sodium (Levothyroxine Sodium 100 Mcg Tablet) 100 mcg PO DAILY@0600 [facility] Last Admin: 07/10/23 05:05 Dose: 100 mcg Documented By: OZORALB Ondansetron HCl (Ondansetron Hcl 4 Mg/2 Ml Vial) 4 mg IVPUSH Q8H PRN PRN Reason: Nausea and Vomiting Quetiapine Fumarate (Quetiapine Fumarate 25 Mg Tablet) 12.5 mg PO TID [facility] Last Admin: 07/10/23 13:54 Dose: 12.5 mg Documented By: IRISH Sodium Chloride (0.9 % Sodium Chloride Flush 3 Ml Syringe) 3 ml IVFLUSH QSHIFT ROSALIO Last Admin: 07/10/23 07:45 Dose: 3 ml Documented By: IRISH Tramadol HCl (Tramadol Hcl 50 Mg Tablet) 50 mg PO Q6H PRN PRN Reason: Pain, Moderate(Pain Scale 4-6) Last Admin: 07/10/23 13:54 Dose: 50 mg Documented By: IRISH Labs 07/10/23 06:23 07/10/23 06:23 Labs: Laboratory Results - last 24 hr 07/10/23 06:23 MCV 92.7 MCH 29.9 MCHC 32.3 RDW 14.1 Plt Count 223 MPV 11.2 Absolute Nucleated RBC 0.000 Nucleated RBC % (auto) 0.0 Anion Gap 13 Estim Creat Clear Calc 47.0 Estimated GFR 57 Random Glucose 140 H Calcium 9.3 D Microbiology Microbiology Results: Microbiology 07/09/23 11:17 Blood Culture - Preliminary Blood - Venous No growth after 24 hours. 07/09/23 11:06 Blood Culture - Preliminary Blood - Venous No growth after 24 hours. 07/07/23 Unknown Urine Culture - Final Urine clean catch - Urine clark top Enterococcus faecium 07/07/23 11:29 Blood Culture - Preliminary Blood - Venous No growth after 48 hours. 07/07/23 11:21 Blood Culture - Preliminary Blood - Venous No growth after 48 hours. Assessment and Plan (1) Acute UTI: Status: Acute (2) Sepsis: Status: Acute Plan Pt is an 83-year-old female with a PMH significant for?HTN, hypothyroidism, and advanced dementia who initially presented to the emergency department on 07/04/2023 for evaluation?after fall at home and then again on 07/07/2023 for dizziness, increased confusion. Patient was diagnosed with UTI and placed in physician observation for safe disposition upon discharge. While a physician observation patient developed fever, leukocytosis, tachycardia, tachypnea and met SIRS criteria. Patient will be admitted to the hospital for treatment further evaluation of sepsis in the setting of UTI. 1.E.Faecium UTI..Sepsis resolved -Enterococcus sensitive to vancomycin -start vancomycin weight based -follow renals/divalents 2.Acute metabolic encephalopathy in backdrop of advanced dementia -Seroquel 12.5 mg TID -adjust as indicated 3.HTN -acceptable control on current therapies -adjust as indicated 4.Hypothyroidism -Continue levothyroxine DNR/DNI Lovenox Patient will require ongoing hospitalization for treatment of UTI with IV antibiotics. Time Spent With Patient Time: Total time managing care of this patient today ____ minutes. Quality Stroke Does the patient have a stroke diagnosis?: No VTE Prior VTE?: No VTE Risk Level:: Medical - moderate - high VTE Device Contraindication: Treatment Not Indicated VTE Drug Contraindication: N/A - Med Ordered
--- NOTE | 2023-07-10 15:28 | MHC.CM.PN ---
CM MET WITH PT TWO DAUGHTER IN THE ED AND AFTER ADMISSION PT IS FROM HOME WHERE SHE LIVES WITH HER S/O, WHO IS OLDER THAN HER WITH MEDICAL PROBLEMS SHE TYPICALLY HAS A PRIVATE PAY CASKET TRIMMER FROM [phone] DAILY, HER DAUGHTERS A PROVIDE CARE WHEN THE CASKET TRIMMER IS NOT THERE BOTH DAUGHTERS DO WORK PT HAS A WALKER HOWEVER NEVER REMEMBERS TO USE IT, HER DAUGHTERS HOLD HER ON EACH SIDE WHEN SHE AMBULATES DAUGHTER, DAWOOD IS HER HCP AND DAVID IS HER POA DOCUMENTS REQUESTED PER DAUGHTER, DAVID, THEY ARE HOPEFUL PT WILL BE ABLE TO GO TO STR SHE IS AWARE PT HAS BEEN UNABLE TO PARTICIPATE WITH PT AND THAT IS A REQUIREMENT OF STR SHE HOPES THAT PT WILL DO BETTER AFTER A COUPLE OF DAYS OF IV ABX IF PT IS UNABLE TO GO TO STR, HER DAUGHTERS ARE LOOKING INTO HIRING 24/7 PRIVATE PAY CARE AT HOME PCP: HUNTER CORONADO IMM DELIVERED DCP TBD: STR VS HOME WITH 24/7 CARE TRANSPORT TBD BY [facility], [facility]
[2023-07-10] MEDS: vancomycin/NS 2,000 MG/500 ML PLAST..BAG 250 MG IV (16:40)
--- NOTE | 2023-07-10 17:02 | PHA.PROG ---
Admission Date/Time: July 09, 2023 17:13 Indication: other Weight in k kg Adjusted body weight in Kg: Ironside body weight in Kg: Obesity Dosing Indication % IBW: Serum Creatinine - Last 168 Hours 07/07/23 07/09/23 07/10/23 09:59 11:17 06:23 Creatinine 0.84 0.95 0.94 Estimated CrCl and GFR - Last 168 Hours 07/07/23 07/09/23 07/10/23 09:59 11:17 06:23 Estim Creat Clear Calc 52.5 46.5 47.0 Estimated GFR > 60 56 57 Vancomycin Loading Dose: 2000mg Current Vancomycin Dosing Regimen: 1250mg Q24H Vancomycin Monitoring using AUC goal of 400 - 600 range with trough as surrogate marker: 510 mg/L Date and Time for next Vancomycin Level to be drawn: 07/13/23 @1400 Pharmacist Comments on Vancomycin Plan: Using the modified Goti model; predicted trough of 15.5 mg/L. Will continue to monitor renal function and adjust appropriately Vancomycin dosing will take advantage of [employer] as a clinical decision support tool that uses Bayesian modeling to calculate individual patient's pharmacokinetic parameters and forecast the patient's drug concentration time course with the target goal AUC 24 range of 400 - 600 mg/L/hr.
[2023-07-10] MEDS: Enoxaparin Sodium 40 MG/0.4 ML SYRINGE SUBCUT (17:24)
[2023-07-10 20:00] VITALS: BP 127/59; PULSE 84; RESP 18; TEMP 36.1; O2SAT 96
[2023-07-10] MEDS: Docusate Sodium 100 MG CAPSULE PO (20:32)
[2023-07-10 23:47] VITALS: BP 142/64; PULSE 94; RESP 16; TEMP 36.1; O2SAT 94
[2023-07-11 04:00] VITALS: BP 139/63; PULSE 96; RESP 20; TEMP 36.1; O2SAT 93
[2023-07-11] MEDS: Acetaminophen 325 MG TABLET 650 MG PO ×3 (05:31→20:02)
[2023-07-11] MEDS: Levothyroxine Sodium 100 MCG TABLET PO (05:31)
[2023-07-11 07:15] VITALS: BP 125/59; PULSE 86; RESP 20; TEMP 36.1; O2SAT 93
[2023-07-11] MEDS: amLODIPine Besylate 5 MG TABLET PO (07:46)
[2023-07-11] MEDS: QUEtiapine Fumarate 25 MG TABLET 12.5 MG PO ×2 (07:46→20:03)
[2023-07-11 07:53] LABS: MANUAL DIFF FLAG NO
[2023-07-11] MEDS: 0.9 % Sodium Chloride Flush 3 ML SYRINGE IVFLUSH ×2 (07:53→15:49)
[2023-07-11 07:57] LABS: Basophils Percent Auto 0.2 % (0-2); Eosinophils Absolute Auto 0.2 X10*3/uL (0.0-0.4); Eosinophils Percent Auto 1.6 % (0-4); Hematocrit 33.4 % (37.0-47.0); Hemoglobin 10.8 g/dl (12.0-16.0); Imm Gran Abs Auto 0.04 X10*3/uL (0.00-0.03); Imm Gran Pct Auto 0.4 % (0.0-0.4); Lymphocytes Absolute Auto 1.7 X10*3/uL (1.2-4.9); Lymphocytes Percent Auto 17.1 % (20-40); Mean Corpuscular HGB Conc 32.3 g/dl (31.0-35.0); Mean Corpuscular Hemoglobin 30.2 pg (27.0-33.0); Mean Corpuscular Volume 93.3 fL (80.0-98.0); Mean Platelet Volume 9.7 fL (9.4-12.3); Monocytes Absolute Auto 1.1 X10*3/uL (0.1-1.2); Monocytes Percent Auto 11.5 % (2-11); Neutrophils Absolute Auto 6.7 x10*3/uL (2.0-8.3); Neutrophils Percent Auto 69.2 % (45-73); Platelet Count 307 X10*3/uL (160-400); Red Blood Count 3.58 X10*6/uL (4.20-5.50); Red Cell Distribution Width 13.7 % (11.0-16.0); White Blood Count 9.7 X10*3/uL (4.8-10.8)
[2023-07-11 08:18] LABS: Alanine Aminotransferase 15 U/L (0-31); Albumin Level 3.1 g/dL (3.5-5.0); Alkaline Phosphatase 91 U/L (39-117); Anion Gap 13 (12-20); Aspartate Amino Transferase 20 U/L (5-31); Bilirubin Total 0.3 mg/dL (0.0-1.0); Blood Urea Nitrogen 25 mg/dL (9-16); Calcium 8.5 mg/dL (8.4-10.2); Carbon Dioxide 21 mmol/L (22-29); Chloride 103 mmol/L (96-108); Creatinine Clr Calc Pharmacy 52.5; Estimated Glomerular Filt Rate > 60; Glucose Fasting 142 mg/dL (60-99); Potassium 3.9 mmol/L (3.3-5.1); Sodium 133 mmol/L (135-145); Total Protein 6.6 g/dL (6.5-8.0)
--- NOTE | 2023-07-11 09:13 | HE.PHANOTE ---
Vancomycin Dosing renal function is stable, continue current regimen Nicolasa Friedman, AstridD
[2023-07-11] MEDS: traMADoL HCL 50 MG TABLET PO ×2 (11:40→20:02)
--- NOTE | 2023-07-11 12:21 | P.PNIM_ITS ---
Subjective Subjective Date of Service: 07/11/23 Interval History: Remains confused. Review of Systems Unable to obtain Physical Exam 2 Vital Signs: Vital Signs: Last Vital Signs Temp 96.9 F 07/11/23 07:15 Pulse 86 07/11/23 07:15 Resp 20 07/11/23 07:15 BP 125/59 L 07/11/23 07:15 Pulse Ox 93 07/11/23 07:15 O2 Del Method Room Air 07/11/23 07:15 O2 Flow Rate 95 07/08/23 04:38 FiO2 92 07/09/23 07:53 BMI result Body Mass Index 31.2 Const: Other: Awake confused Resp: Other: Clear to auscultation bilaterally no rales rhonchi or wheezes Cardio: Other: No S4; positive S1-S2; no S3 murmurs rubs or gallops GI: Other: Soft nontender nondistended normoactive bowel sounds Extrem: Other: No edema bilaterally Objective Data Active Medications Acetaminophen (Acetaminophen 325 Mg Tablet) 650 mg PO Q6H PRN PRN Reason: Pain, Mild (Pain Scale 1-3) Last Admin: 07/11/23 05:31 Dose: 650 mg Documented By: JENA Amlodipine Besylate (Amlodipine Besylate 5 Mg Tablet) 5 mg PO DAILY [facility]; Protocol Last Admin: 07/11/23 07:46 Dose: 5 mg Documented By: IRISH Docusate Sodium (Docusate Sodium 100 Mg Capsule) 100 mg PO DAILY PRN PRN Reason: Constipation Last Admin: 07/10/23 20:32 Dose: 100 mg Documented By: JENA Enoxaparin Sodium (Enoxaparin Sodium 40 Mg/0.4 Ml Syringe) 40 mg SUBCUT Q24H [facility] Last Admin: 07/10/23 17:24 Dose: 40 mg Documented By: IRISH Vancomycin HCl 1,250 mg/ (Sodium Chloride) 250 mls @ 166.667 mls/hr IV Q24H [facility] Levothyroxine Sodium (Levothyroxine Sodium 100 Mcg Tablet) 100 mcg PO DAILY@0600 [facility] Last Admin: 07/11/23 05:31 Dose: 100 mcg Documented By: JENA Ondansetron HCl (Ondansetron Hcl 4 Mg/2 Ml Vial) 4 mg IVPUSH Q8H PRN PRN Reason: Nausea and Vomiting Pharmacy Consult (Consult Rx Vancomycin Dosing) 1 each MISCELLANE DAILY PRN PRN Reason: Consult order Quetiapine Fumarate (Quetiapine Fumarate 25 Mg Tablet) 12.5 mg PO TID [facility] Last Admin: 07/11/23 07:46 Dose: 12.5 mg Documented By: IRISH Sodium Chloride (0.9 % Sodium Chloride Flush 3 Ml Syringe) 3 ml IVFLUSH QSHIFT [facility] Last Admin: 07/11/23 07:53 Dose: 3 ml Documented By: IRISH Tramadol HCl (Tramadol Hcl 50 Mg Tablet) 50 mg PO Q6H PRN PRN Reason: Pain, Moderate(Pain Scale 4-6) Last Admin: 07/11/23 11:40 Dose: 50 mg Documented By: IRISH Labs 07/11/23 07:13 07/11/23 07:13 Labs: Laboratory Results - last 24 hr 07/11/23 07:13 MCV 93.3 MCH 30.2 MCHC 32.3 RDW 13.7 Plt Count 307 D MPV 9.7 Immature Gran % (Auto) 0.4 Neut % (Auto) 69.2 Lymph % (Auto) 17.1 L [place] % (Auto) 11.5 H Eos % (Auto) 1.6 Baso % (Auto) 0.2 Lymph # (Auto) 1.7 [place] # (Auto) 1.1 Eos # (Auto) 0.2 Baso # (Auto) 0.0 Abs Immat Gran (auto) 0.04 H Absolute Neuts (auto) 6.7 Absolute Nucleated RBC 0.000 Nucleated RBC % (auto) 0.0 Anion Gap 13 Estim Creat Clear Calc 52.5 Estimated GFR > 60 Fasting Glucose 142 H Calcium 8.5 D Total Bilirubin 0.3 AST 20 ALT 15 Alkaline Phosphatase 91 Total Protein 6.6 Albumin 3.1 L Microbiology Microbiology Results: Microbiology 07/09/23 11:17 Blood Culture - Preliminary Blood - Venous No growth after 24 hours. 07/09/23 11:06 Blood Culture - Preliminary Blood - Venous No growth after 24 hours. Assessment and Plan (1) Acute UTI: Status: Acute Plan Pt is an 83-year-old female with a PMH significant for?HTN, hypothyroidism, and advanced dementia who initially presented to the emergency department on 07/04/2023 for evaluation?after fall at home and then again on 07/07/2023 for dizziness, increased confusion. Patient was diagnosed with UTI and placed in physician observation for safe disposition upon discharge. While a physician observation patient developed fever, leukocytosis, tachycardia, tachypnea and met SIRS criteria. Patient will be admitted to the hospital for treatment further evaluation of sepsis in the setting of UTI. 1.E.Faecium UTI..Sepsis resolved -Enterococcus sensitive to vancomycin -vancomycin (2) -follow renals/divalents 2.Acute metabolic encephalopathy in backdrop of advanced dementia -Seroquel 12.5 mg TID -adjust as indicated 3.HTN -acceptable control on current therapies -adjust as indicated 4.Hypothyroidism -Continue levothyroxine DNR/DNI Lovenox Patient will require ongoing hospitalization for treatment of UTI with IV antibiotics. Time Spent With Patient Time: Total time managing care of this patient today ____ minutes. Quality Stroke Does the patient have a stroke diagnosis?: No VTE Prior VTE?: No VTE Risk Level:: Medical - moderate - high VTE Device Contraindication: Treatment Not Indicated VTE Drug Contraindication: N/A - Med Ordered
[2023-07-11] MEDS: vancomycin HCL 1,250 MG in 0.9 % Sodium Chloride 250 ML 166.67 MG IV (15:43)
[2023-07-11 15:45] VITALS: BP 127/64; PULSE 95; RESP 18; TEMP 36.2; O2SAT 94
[2023-07-11] MEDS: Enoxaparin Sodium 40 MG/0.4 ML SYRINGE SUBCUT (18:00)
[2023-07-11 20:00] VITALS: BP 138/67; PULSE 113; RESP 19; TEMP 36.8; O2SAT 95
[2023-07-11] MEDS: Docusate Sodium 100 MG CAPSULE PO (20:03)
[2023-07-12 04:00] VITALS: BP 123/58; PULSE 94; RESP 18; TEMP 36.3; O2SAT 93
[2023-07-12] MEDS: Levothyroxine Sodium 100 MCG TABLET PO (05:56)
[2023-07-12 07:47] VITALS: BP 135/64; PULSE 93; RESP 18; TEMP 36.8; O2SAT 93
[2023-07-12 08:17] LABS: Basophils Percent Auto 0.4 % (0-2); Eosinophils Absolute Auto 0.2 X10*3/uL (0.0-0.4); Hematocrit 34.8 % (37.0-47.0); Hemoglobin 11.4 g/dl (12.0-16.0); Imm Gran Abs Auto 0.04 X10*3/uL (0.00-0.03); Imm Gran Pct Auto 0.5 % (0.0-0.4); Lymphocytes Absolute Auto 2.1 X10*3/uL (1.2-4.9); Lymphocytes Percent Auto 24.6 % (20-40); MANUAL DIFF FLAG NO; Mean Corpuscular HGB Conc 32.8 g/dl (31.0-35.0); Mean Corpuscular Hemoglobin 30.6 pg (27.0-33.0); Mean Corpuscular Volume 93.3 fL (80.0-98.0); Mean Platelet Volume 9.6 fL (9.4-12.3); Monocytes Absolute Auto 1.2 X10*3/uL (0.1-1.2); Monocytes Percent Auto 13.6 % (2-11); Neutrophils Percent Auto 58.9 % (45-73); Platelet Count 354 X10*3/uL (160-400); Red Blood Count 3.73 X10*6/uL (4.20-5.50); Red Cell Distribution Width 13.7 % (11.0-16.0); White Blood Count 8.5 X10*3/uL (4.8-10.8)
[2023-07-12 08:32] LABS: Alanine Aminotransferase 15 U/L (0-31); Albumin Level 3.1 g/dL (3.5-5.0); Alkaline Phosphatase 111 U/L (39-117); Anion Gap 11 (12-20); Aspartate Amino Transferase 20 U/L (5-31); Bilirubin Total 0.3 mg/dL (0.0-1.0); Blood Urea Nitrogen 28 mg/dL (9-16); Carbon Dioxide 23 mmol/L (22-29); Chloride 105 mmol/L (96-108); Creatinine Clr Calc Pharmacy 55.2; Estimated Glomerular Filt Rate > 60; Glucose Fasting 103 mg/dL (60-99); Potassium 4.4 mmol/L (3.3-5.1); Sodium 135 mmol/L (135-145); Total Protein 6.8 g/dL (6.5-8.0)
[2023-07-12] MEDS: amLODIPine Besylate 5 MG TABLET PO (08:48)
[2023-07-12] MEDS: traMADoL HCL 50 MG TABLET PO (08:48)
[2023-07-12] MEDS: QUEtiapine Fumarate 25 MG TABLET 12.5 MG PO ×3 (08:48→20:41)
[2023-07-12] MEDS: Acetaminophen 325 MG TABLET 650 MG PO ×3 (08:49→20:34)
[2023-07-12] MEDS: 0.9 % Sodium Chloride Flush 3 ML SYRINGE IVFLUSH ×2 (08:50→20:41)
--- NOTE | 2023-07-12 09:03 | HE.PHANOTE ---
RE:ORALIAO PATIENT'S SCR REMAINS STABLE, CONTINUE CURRENT DOSE. NEXT LEVEL IS ON 07/13/23 AT 1400. VY
--- NOTE | 2023-07-12 13:35 | HO.PM.IMPN ---
Subjective Subjective Date of Service: 07/12/23 Interval History: Unable to provide meaningful history due to underlying mental status, daughter at bedside feels mother is in pain, due to recent fall back pain and left arm discomfort, and therefore not participating in PT and unable to ambulate, she wishes mother to be out of bed to chair and ambulate, no other acute issues overnight,Tolerating diet, no nausea, no vomiting. Review of Systems Unable to obtain due to dementia Physical Exam Vital Signs: Vital Signs: Last Vital Signs Temp 98.3 F 07/12/23 07:47 Pulse 93 07/12/23 07:47 Resp 18 07/12/23 07:47 BP 135/64 07/12/23 07:47 Pulse Ox 93 07/12/23 07:47 O2 Del Method Room Air 07/12/23 07:47 O2 Flow Rate 95 07/08/23 04:38 FiO2 92 07/09/23 07:53 BMI result Body Mass Index 31.2 Const: Other: General: confused, resting comfortably, no acute distress Neck no JVD Resp: CTA bilaterally CVS: S1, S2, RRR GI: +BS, NT, no distention Skin: No rash Neuro: speech clear moving all 4 extremities Extremities: No edema Objective Data Active Medications Acetaminophen (Acetaminophen 325 Mg Tablet) 650 mg PO Q6H PRN PRN Reason: Pain, Mild (Pain Scale 1-3) Last Admin: 07/12/23 08:49 Dose: 650 mg Documented By: JOSHUA Amlodipine Besylate (Amlodipine Besylate 5 Mg Tablet) 5 mg PO DAILY [facility]; Protocol Last Admin: 07/12/23 08:48 Dose: 5 mg Documented By: JOSHUA Docusate Sodium (Docusate Sodium 100 Mg Capsule) 100 mg PO DAILY PRN PRN Reason: Constipation Last Admin: 07/11/23 20:03 Dose: 100 mg Documented By: DERICK Enoxaparin Sodium (Enoxaparin Sodium 40 Mg/0.4 Ml Syringe) 40 mg SUBCUT Q24H [facility] Last Admin: 07/11/23 18:00 Dose: 40 mg Documented By: IRISH Vancomycin HCl 1,250 mg/ (Sodium Chloride) 250 mls @ 166.667 mls/hr IV Q24H [facility] Last Infusion: 07/11/23 17:18 Dose: Infused Documented By: IRISH Levothyroxine Sodium (Levothyroxine Sodium 100 Mcg Tablet) 100 mcg PO DAILY@0600 [facility] Last Admin: 07/12/23 05:56 Dose: 100 mcg Documented By: EDRICK Ondansetron HCl (Ondansetron Hcl 4 Mg/2 Ml Vial) 4 mg IVPUSH Q8H PRN PRN Reason: Nausea and Vomiting Pharmacy Consult (Consult Rx Vancomycin Dosing) 1 each MISCELLANE DAILY PRN PRN Reason: Consult order Quetiapine Fumarate (Quetiapine Fumarate 25 Mg Tablet) 12.5 mg PO TID [facility] Last Admin: 07/12/23 08:48 Dose: 12.5 mg Documented By: JOSHUA Sodium Chloride (0.9 % Sodium Chloride Flush 3 Ml Syringe) 3 ml IVFLUSH QSHIFT [facility] Last Admin: 07/12/23 08:50 Dose: 3 ml Documented By: JOSHUA Tramadol HCl (Tramadol Hcl 50 Mg Tablet) 50 mg PO Q6H PRN PRN Reason: Pain, Moderate(Pain Scale 4-6) Last Admin: 07/12/23 08:48 Dose: 50 mg Documented By: JOSHUA Labs 07/12/23 07:42 07/12/23 07:42 Labs: Laboratory Results - last 24 hr 07/12/23 07:42 MCV 93.3 MCH 30.6 MCHC 32.8 RDW 13.7 Plt Count 354 MPV 9.6 Immature Gran % (Auto) 0.5 H Neut % (Auto) 58.9 Lymph % (Auto) 24.6 [place] % (Auto) 13.6 H Eos % (Auto) 2.0 Baso % (Auto) 0.4 Lymph # (Auto) 2.1 [place] # (Auto) 1.2 Eos # (Auto) 0.2 Baso # (Auto) 0.0 Abs Immat Gran (auto) 0.04 H Absolute Neuts (auto) 5.0 Absolute Nucleated RBC 0.000 Nucleated RBC % (auto) 0.0 Anion Gap 11 L Estim Creat Clear Calc 55.2 Estimated GFR > 60 Fasting Glucose 103 H Calcium 9.0 Total Bilirubin 0.3 AST 20 ALT 15 Alkaline Phosphatase 111 Total Protein 6.8 Albumin 3.1 L Microbiology Microbiology Results: Microbiology 07/07/23 11:29 Blood Culture - Final Blood - Venous No growth after 5 days. 07/07/23 11:21 Blood Culture - Final Blood - Venous No growth after 5 days. 07/09/23 11:17 Blood Culture - Preliminary Blood - Venous No growth after 48 hours. 07/09/23 11:06 Blood Culture - Preliminary Blood - Venous No growth after 48 hours. Assessment and Plan (1) Sepsis: Status: Acute (2) Acute UTI: Status: Acute Plan 83-year-old female with a PMH significant for?HTN, hypothyroidism, and advanced dementia who initially presented to the emergency department on 07/04/2023 for evaluation?after fall at home and then again on 07/07/2023 for dizziness, increased confusion. Patient was diagnosed with UTI and placed in physician observation for safe disposition upon discharge. While a physician observation patient developed fever, leukocytosis, tachycardia, tachypnea and met SIRS criteria. Patient will be admitted to the hospital for treatment further evaluation of sepsis in the setting of UTI. 1.E.Faecium UTI..Sepsis resolved -Enterococcus sensitive to vancomycin -vancomycin day 3 consulted ID Case discussed with her she recommend linezolid 600 mg twice daily for total 10 day treatment will monitor patient for serotonin syndrome while on Seroquel t.i.d. Add scheduled Tylenol for pain 2.Acute metabolic encephalopathy in backdrop of advanced dementia -no behavioral issues this morning, continue Seroquel 12.5 mg TID 3.HTN -acceptable control on current therapies,follow bp. 4.Hypothyroidism -Continue levothyroxine 5. Disposition seen by Physical therapy they recommend long-term care versus 247 care at home, as per daughter patient was ambulating prior to coming to the hospital and due to significant fall she is in pain and unable to ambulate uses patient to be back to her baseline before taking her back home, will encourage out of bed to chair and ambulate as tolerated DNR/DNI Lovenox Patient will require ongoing hospitalization for treatment of UTI with IV antibiotics. Time Spent With Patient Time: Total time managing care of this patient today ____ minutes. Quality Stroke Does the patient have a stroke diagnosis?: No VTE Prior VTE?: No VTE Risk Level:: Medical - moderate - high VTE Device Contraindication: Treatment Not Indicated VTE Drug Contraindication: N/A - Med Ordered
--- NOTE | 2023-07-12 14:23 | MHC.SL.SWA ---
Speech Pathologist Impression: Oral phase dysphagia Risk of Aspiration Due to: Neurological Condition Reduced Cognition Dysphasia Diet Status: No changes, continue on NDD3 Liquid Consistency and Strategies for Safe Swallow: Liquid Intake Recommendation: Thin Liquid Intake Strategies: Small Sips No Straws Solid Food Consistency: Dietary Recommendations: Chopped/Advanced (NDD3) Additional Modifications to Solid Foods: No changes recommended. Continue w/ CHOPPED/ADVANCED (NDD3) diet and THIN liquid (no straws). Per daughter, pt tends to chew pills- needs them CRUSHED in PUREE. Pt requires TOTAL 1:1 ASSISTANCE feeding, ensure aspiration precautions. This is reportedly pt's baseline diet- Further ST intervention no longer warranted as pt appears to be on safest, least restrictive diet textures at this time. Please re-refer with any changes or further concern. Oral Medication Intake: Crushed with Puree Please contact the pharmacy regarding appropriate crushable or liquid drug formulations that are available whenever modified delivery is recommended. Compensatory Strategies and Precautions to be Taken for Safe Swallow: Sitting Upright (90 deg) Double Swallow No Straw Small Bites and Sips Alternate Liquids/Solids Rate of Ingestion Change Oral Check Avoid Specific Foods Supervision While Eating and Drinking for Safe Swallow: Total Assistance (1:1) Foods to Avoid: Mixed textures, dry or hard to chew solids Recommendation for Speech: NA:Typical Evaluation Supervisor Varnish Clinican/Clinical Fellow: No Supervisory Statement: I have reviewed and agree with the student/clinical fellow's documentation: N/A Speech Language Pathologist: Yamilka Ward M.A., CCC-WINDING INSPECTOR
[2023-07-12] MEDS: Linezolid 600 MG TABLET PO (14:36)
--- NOTE | 2023-07-12 14:57 | MHC.CM.PN ---
per rounds pt pt will need an updated pt eval ?ltc vs home w/are pt is not ready for dc
[2023-07-12 15:27] VITALS: BP 140/64; PULSE 93; RESP 15; TEMP 36.3; O2SAT 94
--- NOTE | 2023-07-12 15:42 | P.CNID_ITS ---
History of Present Illness Data of Consult Service Date: 07/12/23 Requesting physician: Crys Tanner Primary Care Provider: Willie Batista MD HPI Reason for consult: sepsis,urinary She presents with fall to ER and dizziness. She had worsening confusion and then tachycardia as well as leukocytosis. Blood cultures are negative and urine culture enterococcus faecium. She has had UTIs and is on Keflex 250 mg po HS for UTI prevention She is taking Seroquel now increased to 25 mg from 12.5 and bid/tid. Review of Systems 2 Review of Systems: Yes Unobtainable due to mental condition [facility] Past Medical History Medical History AD (Alzheimer's disease) Hypothyroidism HTN (hypertension) Family History Family History Mother CAD (coronary artery disease) Father CAD (coronary artery disease) Family history: reviewed and not pertinent Social History Social History Household Members: Significant Other Housing: House Do you presently have visiting nurse or other home services: Yes (health aid, meals on wheels) Alcohol intake: never Patient Tobacco Use Status: Tobacco use Unknown Smoked in Last 30 Days: No Use of substances other than those prescribed or required for medical reasons: No Currently Displaying Signs/Symptoms of Drug Intoxication Withdrawal: No Have you been hit, kicked, punched, or otherwise hurt by someone within the past year? If so, by whom?: No Do you feel safe in your current relationship?: Yes Is there a partner from a previous relationship who is making you feel unsafe now?: No Are you made to feel afraid or neglected: No Advance Directives: No Advance Directives Information Provided: Yes Do you have thoughts of harming others: None Do you have a plan to hurt others: No Plan Recently lost weight without trying: No Nutrition Risks: Difficulty chewing Patient : Yes service: No Current occupational status: retired Meds Allergies Allergy/AdvReac Type Severity Reaction Status Date / Time No Known Allergies Allergy Verified 08/20/22 08:51 Active Medications: Current Medications Acetaminophen (Acetaminophen 325 Mg Tablet) 650 mg PO Q6H PRN PRN Reason: Pain, Mild (Pain Scale 1-3) Last Admin: 07/12/23 08:49 Dose: 650 mg Acetaminophen (Acetaminophen 325 Mg Tablet) 650 mg PO TID [facility] Last Admin: 07/12/23 14:36 Dose: 650 mg Amlodipine Besylate (Amlodipine Besylate 5 Mg Tablet) 5 mg PO DAILY [facility]; Protocol Last Admin: 07/12/23 08:48 Dose: 5 mg Docusate Sodium (Docusate Sodium 100 Mg Capsule) 100 mg PO DAILY PRN PRN Reason: Constipation Last Admin: 07/11/23 20:03 Dose: 100 mg Enoxaparin Sodium (Enoxaparin Sodium 40 Mg/0.4 Ml Syringe) 40 mg SUBCUT Q24H [facility] Last Admin: 07/11/23 18:00 Dose: 40 mg Levothyroxine Sodium (Levothyroxine Sodium 100 Mcg Tablet) 100 mcg PO DAILY@0600 [facility] Last Admin: 07/12/23 05:56 Dose: 100 mcg Linezolid (Linezolid 600 Mg Tablet) 600 mg PO Q12H [facility] Last Admin: 07/12/23 14:36 Dose: 600 mg Ondansetron HCl (Ondansetron Hcl 4 Mg/2 Ml Vial) 4 mg IVPUSH Q8H PRN PRN Reason: Nausea and Vomiting Pharmacy Consult (Consult Rx Vancomycin Dosing) 1 each MISCELLANE DAILY PRN PRN Reason: Consult order Quetiapine Fumarate (Quetiapine Fumarate 25 Mg Tablet) 12.5 mg PO TID [facility] Last Admin: 07/12/23 14:37 Dose: 12.5 mg Sodium Chloride (0.9 % Sodium Chloride Flush 3 Ml Syringe) 3 ml IVFLUSH QSHIFT [facility] Last Admin: 07/12/23 08:50 Dose: 3 ml Tramadol HCl (Tramadol Hcl 50 Mg Tablet) 50 mg PO Q6H PRN PRN Reason: Pain, Moderate(Pain Scale 4-6) Last Admin: 07/12/23 08:48 Dose: 50 mg Home Medications Medication Instructions Recorded Confirmed Last Taken Type amlodipine 5 mg tablet 1 tab PO DAILY 08/20/22 07/07/23 08/19/22 History levothyroxine 100 mcg tablet 1 tab PO DAILY@0600 08/20/22 07/07/23 08/19/22 History cephalexin 250 mg capsule 250 mg PO DAILY 07/07/23 07/07/23 Unknown History Physical Exam 2 Vital Signs: Vital Signs: Last Vital Signs Temp 97.3 F 07/12/23 15:27 Pulse 93 07/12/23 15:27 Resp 15 07/12/23 15:27 BP 140/64 H 07/12/23 15:27 Pulse Ox 94 07/12/23 15:27 O2 Del Method Room Air 07/12/23 15:27 O2 Flow Rate 95 07/08/23 04:38 FiO2 92 07/09/23 07:53 BMI result Body Mass Index 31.2 Const: General: cooperative HEENT: Head: Yes normal to inspection Face and sinus: Yes normal facial exam Mouth: Normal oral and palatal mucosa present Teeth and gingiva: d entition normal Eyes: General: appearance normal, both eyes and all related structures P upils: Equal, round and reactive pupils present Resp: Effort & Inspection: normal respiratory effort Cardio: Rate: regular rate Rhythm: regular rhythm GI: Palpation (GI): Soft to palpation and nontender : General: Yes no CVA tenderness Back/Spine/Pelvis: Back: no CVA tenderness Skin: General skin exam: no rashes or lesions noted Neuro: General: moves all extremities Cranial nerves: Yes Equal, round and reactive pupils present Extrem: General: Yes normal to inspection Psych: Other: opens eyes but some confusion Results Labs 07/12/23 07:42 07/12/23 07:42 Labs: Short CBC 07/12/23 Range/Units 07:42 WBC 8.5 (4.8-10.8) X10*3/uL Hgb 11.4 L (12.0-16.0) g/dl Hct 34.8 L (37.0-47.0) % Plt Count 354 (160-400) X10*3/uL BMP 07/12/23 07:42 Sodium 135 Potassium 4.4 Chloride 105 Carbon Dioxide 23 BUN 28 H Creatinine 0.80 Calcium 9.0 Liver Function 07/12/23 Range/Units 07:42 Total Bilirubin 0.3 (0.0-1.0) mg/dL AST 20 (5-31) U/L ALT 15 (0-31) U/L Alkaline Phosphatase 111 (39-117) U/L Albumin 3.1 L (3.5-5.0) g/dL Microbiology Microbiology Results: Microbiology 07/07/23 11:29 Blood - Venous Blood Culture - Final No growth after 5 days. 07/07/23 11:21 Blood - Venous Blood Culture - Final No growth after 5 days. 07/09/23 11:17 Blood - Venous Blood Culture - Preliminary No growth after 48 hours. 07/09/23 11:06 Blood - Venous Blood Culture - Preliminary No growth after 48 hours. 07/07/23 Unknown Urine clean catch - Urine clark top Urine Culture - Final Enterococcus faecium Assessment and Plan (1) Sepsis: Status: Acute She has urinary infection due to enterococcus faecium likely causing changes in sensorium. Keflex doesnt cover this organism. (2) Acute UTI: Status: Acute (3) Acute encephalopathy: Status: Acute Plan Stop Keflex. Linezolid 600 mg bid,watch for interaction with SSRI and dont increase its dose at this time if able. total 10 days treatment May stop Vancomycin. Time Spent With Patient Time: Total time managing care of this patient today ____ minutes.
[2023-07-12] MEDS: Enoxaparin Sodium 40 MG/0.4 ML SYRINGE SUBCUT (17:50)
[2023-07-12 20:00] VITALS: BP 138/58; PULSE 93; RESP 18; TEMP 36; O2SAT 95
[2023-07-13] MEDS: Linezolid 600 MG TABLET PO ×2 (02:04→14:21)
[2023-07-13] MEDS: traMADoL HCL 50 MG TABLET PO (03:48)
[2023-07-13 03:53] VITALS: BP 130/65; PULSE 70; RESP 17; TEMP 36.1; O2SAT 95
[2023-07-13] MEDS: Levothyroxine Sodium 100 MCG TABLET PO (05:49)
[2023-07-13 07:01] LABS: MANUAL DIFF FLAG NO
[2023-07-13 07:11] LABS: Basophils Percent Auto 0.4 % (0-2); Eosinophils Absolute Auto 0.3 X10*3/uL (0.0-0.4); Eosinophils Percent Auto 3.1 % (0-4); Hematocrit 35.8 % (37.0-47.0); Hemoglobin 11.7 g/dl (12.0-16.0); Imm Gran Abs Auto 0.05 X10*3/uL (0.00-0.03); Imm Gran Pct Auto 0.6 % (0.0-0.4); Lymphocytes Absolute Auto 1.9 X10*3/uL (1.2-4.9); Lymphocytes Percent Auto 22.6 % (20-40); Mean Corpuscular HGB Conc 32.7 g/dl (31.0-35.0); Mean Corpuscular Hemoglobin 30.3 pg (27.0-33.0); Mean Corpuscular Volume 92.7 fL (80.0-98.0); Mean Platelet Volume 9.5 fL (9.4-12.3); Monocytes Percent Auto 11.9 % (2-11); Neutrophils Absolute Auto 5.2 x10*3/uL (2.0-8.3); Neutrophils Percent Auto 61.4 % (45-73); Platelet Count 393 X10*3/uL (160-400); Red Blood Count 3.86 X10*6/uL (4.20-5.50); Red Cell Distribution Width 13.5 % (11.0-16.0); White Blood Count 8.4 X10*3/uL (4.8-10.8)
[2023-07-13 07:38] VITALS: BP 127/78; PULSE 94; RESP 18; TEMP 36.6; O2SAT 94
[2023-07-13 07:40] LABS: Alanine Aminotransferase 17 U/L (0-31); Albumin Level 3.1 g/dL (3.5-5.0); Alkaline Phosphatase 124 U/L (39-117); Anion Gap 14 (12-20); Aspartate Amino Transferase 27 U/L (5-31); Bilirubin Total 0.3 mg/dL (0.0-1.0); Blood Urea Nitrogen 25 mg/dL (9-16); Calcium 9.1 mg/dL (8.4-10.2); Carbon Dioxide 25 mmol/L (22-29); Chloride 99 mmol/L (96-108); Creatinine Clr Calc Pharmacy 53.8; Estimated Glomerular Filt Rate > 60; Glucose Fasting 106 mg/dL (60-99); Potassium 4.3 mmol/L (3.3-5.1); Sodium 134 mmol/L (135-145); Total Protein 7.1 g/dL (6.5-8.0)
[2023-07-13] MEDS: QUEtiapine Fumarate 25 MG TABLET 12.5 MG PO ×3 (09:17→20:22)
[2023-07-13] MEDS: amLODIPine Besylate 5 MG TABLET PO (09:17)
[2023-07-13] MEDS: Acetaminophen 325 MG TABLET 650 MG PO ×3 (09:19→20:23)
[2023-07-13] MEDS: 0.9 % Sodium Chloride Flush 3 ML SYRINGE IVFLUSH ×3 (09:20→20:23)
[2023-07-13] MEDS: Docusate Sodium 100 MG CAPSULE PO (09:35)
--- NOTE | 2023-07-13 12:34 | MHC.CM.PN ---
Met with patient and dtr Brittaney. Patient was evaluated by PT. She did not qualify r/t forgetful, no carry over. Patient has a UTI. Medication change made to cover the microorganism, Linezolid 07/12/23. Patient was ambulatory prior to this admission. Dtr requests that once pt is medically clear, PT re eval. [facility] services vs STR. A referral has been sent to [facility] at dtrs request. 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 A referral has also been sent to [employer] shift supervisor melting. Patient will need a secondary payor for LTC when the time comes. Patient will transport via BLS.
--- NOTE | 2023-07-13 15:09 | P.PNIM_ITS ---
Subjective Subjective Date of Service: 07/13/23 Interval History: Pleasantly confused, offers no specific complaints, daughter concern about left hand swelling, and right facial rash, no acute events overnight, no nausea no vomiting or diarrhea noted, remains hemodynamically stable. Review of Systems Unable to obtain due to mental status Physical Exam 2 Vital Signs: Vital Signs: Last Vital Signs Temp 97.8 F 07/13/23 07:38 Pulse 94 07/13/23 07:38 Resp 18 07/13/23 07:38 BP 127/78 07/13/23 07:38 Pulse Ox 94 07/13/23 07:38 O2 Del Method Room Air 07/13/23 07:38 O2 Flow Rate 95 07/08/23 04:38 FiO2 92 07/09/23 07:53 BMI result Body Mass Index 31.2 Const: Other: General: confused, resting comfortably, no acute distress Neck no JVD Resp: CTA bilaterally CVS: S1, S2, RRR GI: +BS, NT, no distention Skin: right naso labial localized hyperemic rash Neuro: speech clear moving all 4 extremities Extremities: Left hand swelling, good range of motion left wrist elbow, limited range of motion left shoulder, no ecchymosis, no bruising Objective Data Active Medications Acetaminophen (Acetaminophen 325 Mg Tablet) 650 mg PO Q6H PRN PRN Reason: Pain, Mild (Pain Scale 1-3) Last Admin: 07/12/23 08:49 Dose: 650 mg Documented By: JOSHUA Acetaminophen (Acetaminophen 325 Mg Tablet) 650 mg PO TID [facility] Last Admin: 07/13/23 14:21 Dose: 650 mg Documented By: JOSHUA Amlodipine Besylate (Amlodipine Besylate 5 Mg Tablet) 5 mg PO DAILY [facility]; Protocol Last Admin: 07/13/23 09:17 Dose: 5 mg Documented By: RHONDA Comments: 136/64 95 Docusate Sodium (Docusate Sodium 100 Mg Capsule) 100 mg PO DAILY PRN PRN Reason: Constipation Last Admin: 07/13/23 09:35 Dose: 100 mg Documented By: RHONDA Enoxaparin Sodium (Enoxaparin Sodium 40 Mg/0.4 Ml Syringe) 40 mg SUBCUT Q24H [facility] Last Admin: 07/12/23 17:50 Dose: 40 mg Documented By: JOSHUA Levothyroxine Sodium (Levothyroxine Sodium 100 Mcg Tablet) 100 mcg PO DAILY@0600 [facility] Last Admin: 07/13/23 05:49 Dose: 100 mcg Documented By: CHEPE Linezolid (Linezolid 600 Mg Tablet) 600 mg PO Q12H [facility] Last Admin: 07/13/23 14:21 Dose: 600 mg Documented By: JOSHUA Ondansetron HCl (Ondansetron Hcl 4 Mg/2 Ml Vial) 4 mg IVPUSH Q8H PRN PRN Reason: Nausea and Vomiting Pharmacy Consult (Consult Rx Vancomycin Dosing) 1 each MISCELLANE DAILY PRN PRN Reason: Consult order Quetiapine Fumarate (Quetiapine Fumarate 25 Mg Tablet) 12.5 mg PO TID [facility] Last Admin: 07/13/23 14:15 Dose: 12.5 mg Documented By: JOSHUA Sodium Chloride (0.9 % Sodium Chloride Flush 3 Ml Syringe) 3 ml IVFLUSH QSHIFT [facility] Last Admin: 07/13/23 09:20 Dose: 3 ml Documented By: RHONDA Tramadol HCl (Tramadol Hcl 50 Mg Tablet) 50 mg PO Q6H PRN PRN Reason: Pain, Moderate(Pain Scale 4-6) Last Admin: 07/13/23 03:48 Dose: 50 mg Documented By: CHEPE Labs 07/13/23 06:05 07/13/23 06:05 Labs: Laboratory Results - last 24 hr 07/13/23 06:05 MCV 92.7 MCH 30.3 MCHC 32.7 RDW 13.5 Plt Count 393 MPV 9.5 Immature Gran % (Auto) 0.6 H Neut % (Auto) 61.4 Lymph % (Auto) 22.6 [place] % (Auto) 11.9 H Eos % (Auto) 3.1 Baso % (Auto) 0.4 Lymph # (Auto) 1.9 [place] # (Auto) 1.0 Eos # (Auto) 0.3 Baso # (Auto) 0.0 Abs Immat Gran (auto) 0.05 H Absolute Neuts (auto) 5.2 Absolute Nucleated RBC 0.000 Nucleated RBC % (auto) 0.0 Anion Gap 14 Estim Creat Clear Calc 53.8 Estimated GFR > 60 Fasting Glucose 106 H Calcium 9.1 Total Bilirubin 0.3 AST 27 ALT 17 Alkaline Phosphatase 124 H Total Protein 7.1 Albumin 3.1 L Microbiology Microbiology Results: Microbiology 07/07/23 11:29 Blood Culture - Final Blood - Venous No growth after 5 days. 07/07/23 11:21 Blood Culture - Final Blood - Venous No growth after 5 days. Assessment and Plan (1) Sepsis: Status: Acute (2) Acute UTI: Status: Acute Plan 83-year-old female with a PMH significant for?HTN, hypothyroidism, and advanced dementia who initially presented to the emergency department on 07/04/2023 for evaluation?after fall at home and then again on 07/07/2023 for dizziness, increased confusion. Patient was diagnosed with UTI and placed in physician observation for safe disposition upon discharge. While a physician observation patient developed fever, leukocytosis, tachycardia, tachypnea and met SIRS criteria. Patient will be admitted to the hospital for treatment further evaluation of sepsis in the setting of UTI. 1.E.Faecium UTI..Sepsis resolved -Enterococcus sensitive to vancomycin -s/p vancomycin x 3d, consulted ID Case discussed with her she recommend linezolid 600 mg twice daily for total 10 day started 07/12, will monitor patient for serotonin syndrome while on Seroquel t.i.d. cont scheduled Tylenol for pain 2.Acute metabolic encephalopathy in backdrop of advanced dementia -no behavioral issues this morning, likely baseline confusion due to dementia, continue Seroquel 12.5 mg TID 3.HTN -acceptable control on current therapies,follow bp. 4.Hypothyroidism -Continue levothyroxine 5. Disposition seen by Physical therapy they recommend long-term care versus 247 care at home, as per daughter patient was ambulating prior to coming to the hospital and due to significant fall she is in pain and unable to ambulate uses patient to be back to her baseline before taking her back home, will encourage out of bed to chair and ambulate as tolerated 6. Left hand swelling and likely due to trauma, good range of motion hold off on imaging studies/chronic left knee arthritis recommend Justice wrap and Aspercreme bid as needed 7.facial eczema use moisturizers like aquaphore/will place on low dose DNR/DNI Lovenox Patient will require ongoing hospitalization for treatment of UTI with IV antibiotics. Time Spent With Patient Time: Total time managing care of this patient today ____ minutes. Quality Stroke Does the patient have a stroke diagnosis?: No VTE Prior VTE?: No VTE Risk Level:: Medical - moderate - high VTE Device Contraindication: Treatment Not Indicated VTE Drug Contraindication: N/A - Med Ordered
[2023-07-13 15:26] VITALS: BP 135/61; PULSE 87; RESP 22; TEMP 36.3; O2SAT 93
[2023-07-13] MEDS: Enoxaparin Sodium 40 MG/0.4 ML SYRINGE SUBCUT (17:21)
[2023-07-13 20:00] VITALS: BP 120/70; PULSE 70; RESP 19; TEMP 36.4; O2SAT 93
[2023-07-13] MEDS: Hydrocortisone 1 % Cream 28.35 GM TUBE 1 APPL TOPICAL (20:23)
[2023-07-14] MEDS: Linezolid 600 MG TABLET PO ×2 (01:54→14:14)
[2023-07-14 03:48] VITALS: BP 134/64; PULSE 88; RESP 17; TEMP 37.1; O2SAT 94
[2023-07-14] MEDS: Levothyroxine Sodium 100 MCG TABLET PO (06:04)
[2023-07-14 06:41] LABS: Creatinine Clr Calc Pharmacy 55.9; Estimated Glomerular Filt Rate > 60
[2023-07-14 07:32] VITALS: BP 175/82; PULSE 88; RESP 20; TEMP 36.7; O2SAT 97
[2023-07-14] MEDS: Acetaminophen 325 MG TABLET 650 MG PO ×3 (08:34→20:11)
[2023-07-14] MEDS: amLODIPine Besylate 5 MG TABLET PO (08:34)
[2023-07-14] MEDS: QUEtiapine Fumarate 25 MG TABLET 12.5 MG PO ×3 (08:35→20:12)
[2023-07-14] MEDS: Hydrocortisone 1 % Cream 28.35 GM TUBE 1 APPL TOPICAL ×2 (08:38→20:13)
[2023-07-14] MEDS: Trolamine Salicylate 10 % Cream 85 GM TUBE 1 APPL TOPICAL (08:39)
[2023-07-14] MEDS: 0.9 % Sodium Chloride Flush 3 ML SYRINGE IVFLUSH ×2 (10:20→15:55)
--- NOTE | 2023-07-14 13:57 | MHC.CM.PN ---
per rounds pt has diarrhea not ready for dc
--- NOTE | 2023-07-14 15:06 | HO.PM.IMPN ---
Subjective Subjective Date of Service: 07/14/23 Interval History: Pleasantly confused this morning wants to go home to be with her mother and father, complaining of lower back pain, unable to obtain meaningful history daughter at bedside, feeding patient she is tolerating diet with no nausea, no vomiting, no abdominal pain, no acute events overnight. Review of Systems Unable to obtain due to mental status Physical Exam Vital Signs: Vital Signs: Last Vital Signs Temp 98.0 F 07/14/23 07:32 Pulse 88 07/14/23 07:32 Resp 20 07/14/23 07:32 BP 175/82 H 07/14/23 07:32 Pulse Ox 97 07/14/23 07:32 O2 Del Method Room Air 07/14/23 07:32 O2 Flow Rate 95 07/08/23 04:38 FiO2 92 07/09/23 07:53 BMI result Body Mass Index 31.2 Const: Other: General: confused, no acute distress Neck no JVD Resp: CTA bilaterally CVS: S1, S2, RRR GI: +BS, NT, no distention Skin: right naso labial localized hyperemic rash Neuro: speech clear moving all 4 extremities Extremities: Left hand swelling improving, good range of motion left wrist elbow, limited range of motion left shoulder, no ecchymosis, no bruising Objective Data Active Medications Acetaminophen (Acetaminophen 325 Mg Tablet) 650 mg PO Q6H PRN PRN Reason: Pain, Mild (Pain Scale 1-3) Last Admin: 07/12/23 08:49 Dose: 650 mg Documented By: JOSHUA Acetaminophen (Acetaminophen 325 Mg Tablet) 650 mg PO TID [facility] Last Admin: 07/14/23 14:15 Dose: 650 mg Documented By: AMOS Amlodipine Besylate (Amlodipine Besylate 5 Mg Tablet) 5 mg PO DAILY [facility]; Protocol Last Admin: 07/14/23 08:34 Dose: 5 mg Documented By: AMOS Docusate Sodium (Docusate Sodium 100 Mg Capsule) 100 mg PO DAILY PRN PRN Reason: Constipation Last Admin: 07/13/23 09:35 Dose: 100 mg Documented By: RHONDA Enoxaparin Sodium (Enoxaparin Sodium 40 Mg/0.4 Ml Syringe) 40 mg SUBCUT Q24H [facility] Last Admin: 07/13/23 17:21 Dose: 40 mg Documented By: JOSHUA Hydrocortisone (Hydrocortisone 1 % Cream 28.35 Gm Tube) 1 appl TOPICAL BID [facility]; Protocol Stop: 07/18/23 20:59 Last Admin: 07/14/23 08:38 Dose: 1 appl Documented By: AMOS Levothyroxine Sodium (Levothyroxine Sodium 100 Mcg Tablet) 100 mcg PO DAILY@0600 [facility] Last Admin: 07/14/23 06:04 Dose: 100 mcg Documented By: CHEPE Linezolid (Linezolid 600 Mg Tablet) 600 mg PO Q12H [facility] Last Admin: 07/14/23 14:14 Dose: 600 mg Documented By: AMOS Ondansetron HCl (Ondansetron Hcl 4 Mg/2 Ml Vial) 4 mg IVPUSH Q8H PRN PRN Reason: Nausea and Vomiting Pharmacy Consult (Consult Rx Vancomycin Dosing) 1 each MISCELLANE DAILY PRN PRN Reason: Consult order Quetiapine Fumarate (Quetiapine Fumarate 25 Mg Tablet) 12.5 mg PO TID [facility] Last Admin: 07/14/23 14:16 Dose: 12.5 mg Documented By: AMOS Sodium Chloride (0.9 % Sodium Chloride Flush 3 Ml Syringe) 3 [facility] Last Admin: 07/14/23 10:20 Dose: 3 ml Documented By: AMOS Tramadol HCl (Tramadol Hcl 50 Mg Tablet) 50 mg PO Q6H PRN PRN Reason: Pain, Moderate(Pain Scale 4-6) Last Admin: 07/13/23 03:48 Dose: 50 mg Documented By: CHEPE Trolamine Salicylate (Trolamine Salicylate 10 % Cream 85 Gm Tube) 1 appl TOPICAL BID PRN; Protocol PRN Reason: left knee Last Admin: 07/14/23 08:39 Dose: 1 appl Documented By: AMOS Labs 07/13/23 06:05 07/14/23 05:56 Labs: Laboratory Results - last 24 hr 07/14/23 05:56 Estim Creat Clear Calc 55.9 Estimated GFR > 60 Microbiology Microbiology Results: Microbiology 07/09/23 11:17 Blood Culture - Final Blood - Venous No growth after 5 days. 07/09/23 11:06 Blood Culture - Final Blood - Venous No growth after 5 days. Assessment and Plan (1) Sepsis: Status: Acute (2) Acute UTI: Status: Acute Plan 83-year-old female with a PMH significant for?HTN, hypothyroidism, and advanced dementia who initially presented to the emergency department on 07/04/2023 for evaluation?after fall at home and then again on 07/07/2023 for dizziness, increased confusion. Patient was diagnosed with UTI and placed in physician observation for safe disposition upon discharge. While a physician observation patient developed fever, leukocytosis, tachycardia, tachypnea and met SIRS criteria. Patient will be admitted to the hospital for treatment further evaluation of sepsis in the setting of UTI. 1.E.Faecium UTI..Sepsis resolved -Enterococcus sensitive to vancomycin -s/p vancomycin x 3d, consulted ID Case discussed with her she recommend linezolid 600 mg twice daily for total 10 day started 07/12, linezolid with seroquel t.i.d. can cause serotonin syndrome, will monitor closely for serotonin syndrome , no diarrhea, no fever, no rigidity noted. cont scheduled Tylenol for pain and tramadol. 2.Acute metabolic encephalopathy in backdrop of advanced dementia -no behavioral issues this morning, likely baseline confusion due to dementia, continue Seroquel 12.5 mg TID home dose 3.HTN -continue Norvasc,follow bp. 4.Hypothyroidism -Continue levothyroxine 5. Disposition seen by Physical therapy they recommend long-term care versus 247 care at home, as per daughter patient was ambulating short distances prior to coming to the hospital and due to significant fall she is in pain and unable to ambulate , daughter wishes patient to be back to her baseline before taking her back home, informed that less likely patient will be able to ambulate and be at her baseline at this time due to fall pain and infection daughter requesting another PT eval. 6. Left hand swelling ,likely due to trauma, good range of motion hold off on imaging studies/chronic left knee arthritis recommend Justice wrap and Aspercreme bid as needed . 7.facial eczema use moisturizers like aquaphore/on low dose cortisone DNR/DNI Lovenox Patient will require ongoing hospitalization for treatment of UTI and close monitoring for serotonin syndrome and needs safe disposition Time Spent With Patient Time: Total time managing care of this patient today ____ minutes. Quality Stroke Does the patient have a stroke diagnosis?: No VTE Prior VTE?: No VTE Risk Level:: Medical - moderate - high VTE Device Contraindication: Treatment Not Indicated VTE Drug Contraindication: N/A - Med Ordered
--- NOTE | 2023-07-14 15:16 | MHC.CM.PN ---
met with reuben Judge imformed that dr alarcon will be ordering a pt eval for 89
[2023-07-14 15:45] VITALS: BP 114/58; PULSE 90; RESP 16; TEMP 36.3; O2SAT 93
[2023-07-14 16:00] LABS: Thyroid Stimulating Hormone 2.84 uIU/mL (0.32-4.0)
[2023-07-14] MEDS: Enoxaparin Sodium 40 MG/0.4 ML SYRINGE SUBCUT (17:13)
[2023-07-14 19:11] VITALS: BP 127/60; PULSE 85; RESP 20; TEMP 36.8; O2SAT 94
[2023-07-15] MEDS: 0.9 % Sodium Chloride Flush 3 ML SYRINGE IVFLUSH ×3 (00:11→16:07)
[2023-07-15] MEDS: Linezolid 600 MG TABLET PO ×2 (02:19→14:14)
[2023-07-15 04:00] VITALS: BP 136/66; PULSE 89; RESP 18; TEMP 36; O2SAT 95
[2023-07-15] MEDS: Levothyroxine Sodium 100 MCG TABLET PO (05:42)
[2023-07-15] MEDS: QUEtiapine Fumarate 25 MG TABLET 12.5 MG PO ×3 (07:38→20:23)
[2023-07-15] MEDS: Acetaminophen 325 MG TABLET 650 MG PO ×4 (07:39→20:24)
[2023-07-15] MEDS: amLODIPine Besylate 5 MG TABLET PO (07:40)
[2023-07-15] MEDS: Hydrocortisone 1 % Cream 28.35 GM TUBE 1 APPL TOPICAL ×2 (07:41→20:24)
[2023-07-15] MEDS: Trolamine Salicylate 10 % Cream 85 GM TUBE 1 APPL TOPICAL (07:41)
[2023-07-15 07:56] VITALS: BP 148/94; PULSE 85; RESP 18; TEMP 36.8; O2SAT 96
[2023-07-15 09:36] VITALS: BP 148/94; PULSE 85; O2SAT 96
--- NOTE | 2023-07-15 13:16 | P.PNIM_ITS ---
Subjective Subjective Date of Service: 07/15/23 Interval History: seen and examined this morning follow up for UTI patient with dementia, awake, alert, confused - unable to obtain reliable ROS no overnight events Neurologic Neurologic: Reports confusion Psychiatric Psychiatric: Reports confusion Physical Exam 2 Vital Signs: Vital Signs: Last Vital Signs Temp 98.2 F 07/15/23 07:56 Pulse 85 07/15/23 09:36 Resp 18 07/15/23 07:56 BP 148/94 H 07/15/23 09:36 Pulse Ox 96 07/15/23 09:36 O2 Del Method Room Air 07/15/23 07:56 O2 Flow Rate 95 07/08/23 04:38 FiO2 92 07/09/23 07:53 BMI result Body Mass Index 31.2 Const: General: comfortable, no acute distress, alert, awake and confusion Nutritional Appearance: overweight Orientation/consciousness: oriented to person and confusion Resp: Effort & Inspection: normal respiratory effort, able to speak in complete sentences, no respiratory distress and no use of accessory muscles Cardio: Rate: regular rate GI: Inspection: No distended Palpation (GI): Soft to palpation and nontender Neuro: Other: grossly non-focal; moves all extremities General: oriented to person and confusion Extrem: General: Yes no pedal edema Objective Data Active Medications Acetaminophen (Acetaminophen 325 Mg Tablet) 650 mg PO Q6H PRN PRN Reason: Pain, Mild (Pain Scale 1-3) Last Admin: 07/12/23 08:49 Dose: 650 mg Documented By: JOSHUA Acetaminophen (Acetaminophen 325 Mg Tablet) 650 mg PO TID [facility] Last Admin: 07/15/23 07:39 Dose: 650 mg Documented By: AMOS Amlodipine Besylate (Amlodipine Besylate 5 Mg Tablet) 5 mg PO DAILY [facility]; Protocol Last Admin: 07/15/23 07:40 Dose: 5 mg Documented By: AMOS Docusate Sodium (Docusate Sodium 100 Mg Capsule) 100 mg PO DAILY PRN PRN Reason: Constipation Last Admin: 07/13/23 09:35 Dose: 100 mg Documented By: RHONDA Enoxaparin Sodium (Enoxaparin Sodium 40 Mg/0.4 Ml Syringe) 40 mg SUBCUT Q24H [facility] Last Admin: 07/14/23 17:13 Dose: 40 mg Documented By: FOREIGN Hydrocortisone (Hydrocortisone 1 % Cream 28.35 Gm Tube) 1 appl TOPICAL BID [facility]; Protocol Stop: 07/18/23 20:59 Last Admin: 07/15/23 07:41 Dose: 1 appl Documented By: AMOS Levothyroxine Sodium (Levothyroxine Sodium 100 Mcg Tablet) 100 mcg PO DAILY@0600 [facility] Last Admin: 07/15/23 05:42 Dose: 100 mcg Documented By: KATHERIN Linezolid (Linezolid 600 Mg Tablet) 600 mg PO Q12H [facility] Last Admin: 07/15/23 02:19 Dose: 600 mg Documented By: KATHERIN Ondansetron HCl (Ondansetron Hcl 4 Mg/2 Ml Vial) 4 mg IVPUSH Q8H PRN PRN Reason: Nausea and Vomiting Pharmacy Consult (Consult Rx Vancomycin Dosing) 1 each MISCELLANE DAILY PRN PRN Reason: Consult order Quetiapine Fumarate (Quetiapine Fumarate 25 Mg Tablet) 12.5 mg PO TID [facility] Last Admin: 07/15/23 07:38 Dose: 12.5 mg Documented By: AMOS Sodium Chloride (0.9 % Sodium Chloride Flush 3 Ml Syringe) 3 ml IVFLUSH QSHIFT [facility] Last Admin: 07/15/23 07:40 Dose: 3 ml Documented By: AMOS Tramadol HCl (Tramadol Hcl 50 Mg Tablet) 50 mg PO Q6H PRN PRN Reason: Pain, Moderate(Pain Scale 4-6) Last Admin: 07/13/23 03:48 Dose: 50 mg Documented By: CHEPE Trolamine Salicylate (Trolamine Salicylate 10 % Cream 85 Gm Tube) 1 appl TOPICAL BID PRN; Protocol PRN Reason: left knee Last Admin: 07/15/23 07:41 Dose: 1 appl Documented By: AMOS Labs 07/13/23 06:05 07/14/23 05:56 Labs: Laboratory Results - last 24 hr 07/14/23 05:56 TSH 2.84 Microbiology Microbiology Results: Microbiology 07/09/23 11:17 Blood Culture - Final Blood - Venous No growth after 5 days. 07/09/23 11:06 Blood Culture - Final Blood - Venous No growth after 5 days. Assessment and Plan (1) Acute UTI: Status: Acute Plan 83-year-old female with a PMH significant for?HTN, hypothyroidism, and advanced dementia who initially presented to the emergency department on 07/04/2023 for evaluation?after fall at home and then again on 07/07/2023 for dizziness, increased confusion. Patient was diagnosed with UTI and placed in physician observation for safe disposition upon discharge. While a physician observation patient developed fever, leukocytosis, tachycardia, tachypnea and met SIRS criteria. Patient will be admitted to the hospital for treatment further evaluation of sepsis in the setting of UTI. sepsis due to E.Faecium UTI initially met sepsis criter with fever, leukocytosis and tachycardia, now resolved. urine cultures growing Enterococcus sensitive to vancomycin s/p vancomycin x 3d, consulted ID Case discussed with her she recommend linezolid 600 mg twice daily for total 10 day started 07/12, linezolid with seroquel t.i.d. can cause serotonin syndrome, will monitor closely for serotonin syndrome , no diarrhea, no fever, no rigidity noted. cont scheduled Tylenol for pain and tramadol. Acute metabolic encephalopathy on backdrop of advanced dementia -no behavioral issues this morning, likely baseline confusion due to dementia, continue Seroquel 12.5 mg TID home dose HTN -continue Norvasc,follow bp. Hypothyroidism -Continue levothyroxine Left hand swelling ,likely due to trauma, good range of motion hold off on imaging studies/chronic left knee arthritis recommend Justice wrap and Aspercreme bid as needed . facial eczema use moisturizers like aquaphor/on low dose cortisone DNR/DNI dvt ppx - Lovenox dispo - PT re-evall - minimally following cues, rec home with 24/7care - likely tomorrow Patient will require ongoing hospitalization for treatment of UTI and close monitoring for serotonin syndrome and needs safe disposition Time Spent With Patient Time: Total time managing care of this patient today ____ minutes. Quality Stroke Does the patient have a stroke diagnosis?: No VTE Prior VTE?: No VTE Risk Level:: Medical - moderate - high VTE Device Contraindication: Treatment Not Indicated VTE Drug Contraindication: N/A - Med Ordered
--- NOTE | 2023-07-15 14:53 | MHC.CM.PN ---
DAUGHTER/HCP AT BEDSIDE. PLAN TO DC HOME TOMORROW 07/16. DAUGHTER HAS ARRANGED FOR 10/05 CARE PRIVATE PAY WITH [employer] STARTING 07/16, THEY HAVE USED THIS AGENCY IN THE PAST. THEY HAVE A HOSPITAL BED AT HOME. BLS BOOKED FOR 07/16 AT 2PM VIA [facility]. IMM ADDRESSED WITH DAUGHTER.
[2023-07-15 15:09] VITALS: BP 148/88; PULSE 86; RESP 17; TEMP 36.7; O2SAT 95
[2023-07-15] MEDS: Enoxaparin Sodium 40 MG/0.4 ML SYRINGE SUBCUT (18:23)
[2023-07-15] MEDS: traMADoL HCL 50 MG TABLET PO (18:23)
[2023-07-15 20:00] VITALS: BP 132/65; PULSE 68; RESP 16; TEMP 36.8; O2SAT 97
[2023-07-16] MEDS: 0.9 % Sodium Chloride Flush 3 ML SYRINGE IVFLUSH ×2 (00:04→08:06)
[2023-07-16] MEDS: Linezolid 600 MG TABLET PO ×2 (02:28→13:28)
[2023-07-16 04:00] VITALS: BP 145/71; PULSE 77; RESP 16; TEMP 36; O2SAT 97
[2023-07-16] MEDS: Levothyroxine Sodium 100 MCG TABLET PO (05:53)
[2023-07-16 06:45] VITALS: BP 120/58; PULSE 74; RESP 18; TEMP 36.6; O2SAT 96
[2023-07-16] MEDS: Acetaminophen 325 MG TABLET 650 MG PO ×2 (08:05→13:27)
[2023-07-16] MEDS: QUEtiapine Fumarate 25 MG TABLET 12.5 MG PO ×2 (08:06→13:28)
[2023-07-16] MEDS: amLODIPine Besylate 5 MG TABLET PO (08:07)
[2023-07-16] MEDS: Hydrocortisone 1 % Cream 28.35 GM TUBE 1 APPL TOPICAL (08:07)
[2023-07-16] MEDS: Trolamine Salicylate 10 % Cream 85 GM TUBE 1 APPL TOPICAL (08:07)
--- NOTE | 2023-07-16 10:17 | PM.DS ---
DS: Providers Provider Date of Service: 07/16/23 Date of admission: 07/09/23 17:13 Date of discharge: 07/16/23 Primary care physician: Willie Batista MD Consults: 07/12/23 13:34 Consult to Infectious Diseases Routine Consulting Provider: Christina Lopez Reason for consultation: enterococcus uti Has provider been notified: Yes 07/12/23 13:52 Consult to Infectious Diseases Routine Consulting Provider: CHRISTINA LOPEZ Reason for consultation: enterococcus uti Has provider been notified: Yes Attending physician on discharge: Rick Salter Discharging clinician: Karla Hager DS: Diagnosis Discharge Diagnosis (1) Acute UTI: Status: Acute (2) Sepsis: Status: Acute DS: Summary Hospital Course Hospital Course: From H&P on day of admission Pt is an 83-year-old female with a PMH significant for?HTN, hypothyroidism, and advanced dementia who initially presented to the emergency department on 07/04/2023 for evaluation?after fall at home. Workup at that time was negative, including CT of abdomen and pelvis, cervical spine CT, and head CT. Urine culture contaminated from that visit. Pt was sent home without any medication changes. Patient then re-presented to the emergency department on 07/07/2023 with daughter stating that since patient had been sent home she has been feeling weak, dizzy, and with body aches, and seems more confused than normal. Workup at that time included UA that was positive for UTI and patient was started on Ceftin. Repeat head CT that was again negative for acute intracranial pathology. Patient at that time did not qualify for inpatient admission as patient was afebrile, WBC 11.5, and not meeting sepsis criteria. Patient's family seems to be looking for a safe discharge plan with possible rehab/long-term medical care or discharged on services. Patient was thus placed into position observation for resolution dizziness and safe discharge planning. Earlier today patient's rectal temperature spiked to 101.4, she was tachycardic up to 110, and patient was reported to be extremely lethargic and more confused normal. Patient was brought back to the ED for additional workup and found to be combative and agitated. Repeat labs showed WBC of 14.9 with lactic acid 0.8 and repeat 1.1. Patient now meeting SIRS criteria, and will be admitted to the hospital for treatment further evaluation of sepsis in the setting of acute UTI sepsis due to E.Faecium UTI. initially met sepsis criteria with fever, leukocytosis and tachycardia, now resolved. urine cultures growing Enterococcus sensitive to vancomycin. she was changed to IV vancomycin on 07/10. consulted ID and case discussed with her she recommend linezolid 600 mg twice daily for total 10 day. linezolid with seroquel t.i.d. do not increase dose of seroquel until finished with antibiotics. no diarrhea, no fever, no rigidity noted. Acute metabolic encephalopathy on backdrop of advanced dementia no behavioral issues this morning, seems to be at baseline mental status due to underlying dementia, continue Seroquel 12.5 mg TID. Pt rec LTC vs home with 24/ care. Family has hired private pay assistance and patient's two daughters will be assisting for now as well. She will return home with 10/05 care. Time Spent with Patient Time attestation: Total time managing care of this patient today ____ minutes. Discharge coordination time: Greater than 30 minutes Quality: Safe Use of Opioids Does Pt have an Active Cancer Diagnosis on the Problem List?: No Quality: Stroke Does the patient have a stroke diagnosis?: No Physical Exam Vital Signs: Vital Signs: Last Vital Signs Temp 98 F 07/16/23 06:45 Pulse 74 07/16/23 06:45 Resp 18 07/16/23 06:45 BP 120/58 L 07/16/23 06:45 Pulse Ox 96 07/16/23 06:45 O2 Del Method Room Air 07/16/23 06:45 O2 Flow Rate 95 07/08/23 04:38 FiO2 92 07/09/23 07:53 BMI result Body Mass Index 31.2 Const: General: comfortable, no acute distress, alert, awake and confusion Nutritional Appearance: overweight Orientation/consciousness: oriented to person and confusion Resp: Effort & Inspection: normal respiratory effort, able to speak in complete sentences, no respiratory distress and no use of accessory muscles Cardio: Rate: regular rate GI: Inspection: No distended Palpation (GI): Soft to palpation and nontender Neuro: Other: grossly non-focal; moves all extremities General: oriented to person and confusion Extrem: General: Yes no pedal edema Discharge Plan Discharge Anticipated Discharge Date/Time: 07/16/23 10:49 Patient Disposition: Home Health Service Discharge Diagnosis: sepsis secondary to UTI Referrals: [facility] [Outside] - 3-5 Days ([facility] WILL CALL TO SCHEDULE AN APPT IN 1-3 DAYS) [facility] [Outside] - 1 Day ([facility] WILL START SERVICES 07/16 AT 11PM) Willie Batista MD [Primary Care Provider] - 1 Week Discharge Medications: New linezolid 600 mg Tablet 600 mg PO Q12H 3 Days Qty: 6 0RF Continued amlodipine 5 mg tablet 1 tab PO DAILY levothyroxine 100 mcg tablet 1 tab PO DAILY@0600 Changed quetiapine 25 mg Tablet 12.5 mg PO TID 30 Days Qty: 45 0RF Discontinued cephalexin 250 mg capsule 250 mg PO DAILY Discharge Orders: Discharge Order (Routine); Ordered 07/16/23 Ordered By: Karla Hager Activity on Discharge: As tolerated Stand Alone Forms: Patient Portal Discharge page Care Plan Goals: see below Health Concerns: sepsis secondary to UTI dementia Plan of Treatment: complete three more days of antibiotics as prescribed take seroquel 12.5 three times daily home with 10/05 care Assessment: see discharge summary
--- NOTE | 2023-07-16 10:46 | MHC.CM.PN ---
DP: BLS TRANSPORT HOME TODAY AT 2PM. REVIEWED DC PLAN WITH DAUGHTER/HCP AT BEDSIDE. SPOKE WITH CICI, [employer] [facility] FOR [facility] TO CONFIRM PLAN. PER CICI, SERVICES WILL BEGIN TONIGHT AT 11PM, DAUGHTERS ARE AGREEABLE TO PROVIDING CARE UNTIL THAT TIME. ADDITIONALLY, [facility] IS STILL WORKING ON FILLING SOME SHIFTS FOR THIS WEDNESDAY 07/18, BUT HAS PERMANENT STAFF SCHEDULED OF THURSDAY 07/19. DAUGHTERS ARE AWARE THEY MAY NEED TO PROVIDE CARE ON WEDNESDAY AND ARE AGREEABLE. DAUGHTERS ARE REQUESTING ADDITIONAL REFERRAL TO [facility], REFERRAL PLACED AND [facility] UPDATED OF DC PLAN. DAUGHTER VERBALIZED FRUSTRATIONS WITH FEELINGS OF BEING KICKED OUT, REVIEWED MEDICAL NECESSITY FOR HOSPITAL STAY, REVIEWED DC PLAN/SERVICES AGAIN. IMM WAS DELIVERED 07/15, DAUGHTERS AWARE OF MEDICARE RIGHTS. DAUGHTER VERBALIZED UNDERSTANDING AND FEELS SERVICES WILL BE SUFFICIENT.
--- NOTE | 2023-07-16 10:54 | P.F2F_ITS ---
Service Date Service Date: 07/16/23 Encounter Date of encounter: 07/16/23 Reasons for Services Signs and symptoms assessed: Needs shelter for medication management, skin assessment, vital sign checks Reason for shelter: medication management Overseeing Care: Willie Batista Homebound: Leaving the home is medically contraindicated at this time without the asist of a device and/or another person due th the listed conditions above and below. Reason homebound: unsteady gait / fall risk and cognitively impaired / unsafe Certification: Based on the above findings, I certify that this patient is confined to the home and needs intermittent shelter care, physical therapy and/or speech therapy, or continues to need occupational therapy. The patient is under my care, and I have initiated the establishment of the plan of care. The patient will be followed by a physician who will periodically review the plan of care. Time Spent With Patient Time: Total time managing care of this patient today ____ minutes.
== END 2023-07-16 16:30 | disposition home health service (06) | DRG 871 ==
LOC: HO.ED 07-09 15:05 → HO.EDOVER 07-09 17:28 → HO.S3 07-09 17:38
PROVIDERS: Emergency Medicine; Hospitalist; Physician Assistant Medical; Admitting Provider Student in an Organized Health Care Education/Training Program; Emergency Provider Emergency Medicine Emergency Medical Services; PCP Internal Medicine; Visit Provider Physician Assistant Medical
DX: A41.9 Sepsis, unspecified organism (principal); G93.41 Metabolic encephalopathy; N39.0 Urinary tract infection, site not specified; F02.811 Dementia in other diseases classified elsewhere, unspecified severity, with agitation; Z66 Do not resuscitate; G30.9 Alzheimer's disease, unspecified; E03.9 Hypothyroidism, unspecified; L30.9 Dermatitis, unspecified; B95.2 Enterococcus as the cause of diseases classified elsewhere; I10 Essential (primary) hypertension; Z20.822 Contact with and (suspected) exposure to COVID-19; Z87.440 Personal history of urinary (tract) infections; Z79.890 Hormone replacement therapy; Z79.899 Other long term (current) drug therapy
CPT/HCPCS: 0241U; 36415; 70450; 71045; 71046; 73560; 80048; 80053; 80076; 81001; 82550; 82565; 83605; 83735; 84443; 84484; 85025; 85027; 87040; 87086; 87088; 87186; 87635; 92610; 93005; 97161; 97162; 97163; 99285; J0295; J0696; J1650; J3370; J3371

== ENCOUNTER → 2023-07-09 17:13 | Outpatient (BNV) | payer MEDICARE, SELFPAY | PROVIDERS: Admitting Provider Student in an Organized Health Care Education/Training Program; Emergency Provider Emergency Medicine Emergency Medical Services; PCP Internal Medicine; Visit Provider Internal Medicine | DX: A41.9 Sepsis, unspecified organism (principal); N39.0 Urinary tract infection, site not specified; G93.40 Encephalopathy, unspecified | CPT/HCPCS: 99222 ==

== ENCOUNTER → 2023-07-09 17:13 | Outpatient (BNV) | payer MEDICARE, SELFPAY | PROVIDERS: Admitting Provider Student in an Organized Health Care Education/Training Program; Emergency Provider Emergency Medicine Emergency Medical Services; PCP Internal Medicine; Visit Provider Student in an Organized Health Care Education/Training Program | DX: A41.9 Sepsis, unspecified organism (principal); N39.0 Urinary tract infection, site not specified | CPT/HCPCS: 99223; 99232; 99233; 99239; G0180 ==

== ENCOUNTER 2024-01-10 06:32 | Outpatient (REF) | payer MEDICARE, SELFPAY ==
[2024-01-10 06:36] LABS: MANUAL DIFF FLAG NO
[2024-01-10 07:01] LABS: Basophils Percent Auto 0.4 % (0-2); Eosinophils Absolute Auto 0.4 X10*3/uL (0.0-0.4); Eosinophils Percent Auto 5.6 % (0-4); Hematocrit 35.5 % (37.0-47.0); Hemoglobin 11.7 g/dl (12.0-16.0); Imm Gran Abs Auto 0.05 X10*3/uL (0.00-0.03); Imm Gran Pct Auto 0.7 % (0.0-0.4); Lymphocytes Absolute Auto 2.7 X10*3/uL (1.2-4.9); Lymphocytes Percent Auto 38.3 % (20-40); Mean Corpuscular Hemoglobin 30.8 pg (27.0-33.0); Mean Corpuscular Volume 93.4 fL (80.0-98.0); Mean Platelet Volume 9.3 fL (9.4-12.3); Monocytes Absolute Auto 0.9 X10*3/uL (0.1-1.2); Monocytes Percent Auto 12.7 % (2-11); Neutrophils Percent Auto 42.3 % (45-73); Platelet Count 322 X10*3/uL (160-400); Red Cell Distribution Width 13.2 % (11.0-16.0); White Blood Count 7.2 X10*3/uL (4.8-10.8)
[2024-01-10 07:09] LABS: Anion Gap 11 (12-20); Blood Urea Nitrogen 18 mg/dL (9-16); Carbon Dioxide 25 mmol/L (22-29); Chloride 104 mmol/L (96-108); Estimated Glomerular Filt Rate > 60; Glucose Random 101 mg/dL (60-115); Sodium 136 mmol/L (135-145)
== END 2024-01-10 06:33 | disposition home or self-care (01) ==
LOC: HO.MMNH2L 06:32
PROVIDERS: Visit Provider Family Medicine
DX: R53.1 Weakness (principal); Z91.81 History of falling
CPT/HCPCS: 36415; 80048; 85025

== ENCOUNTER 2024-01-17 06:46 | Outpatient (REF) | payer MEDICARE, SELFPAY ==
[2024-01-17 05:55] LABS: MANUAL DIFF FLAG NO
[2024-01-17 06:22] LABS: Basophils Percent Auto 0.3 % (0-2); Eosinophils Absolute Auto 0.3 X10*3/uL (0.0-0.4); Eosinophils Percent Auto 3.6 % (0-4); Hematocrit 35.2 % (37.0-47.0); Hemoglobin 11.9 g/dl (12.0-16.0); Imm Gran Abs Auto 0.03 X10*3/uL (0.00-0.03); Imm Gran Pct Auto 0.4 % (0.0-0.4); Lymphocytes Absolute Auto 2.6 X10*3/uL (1.2-4.9); Lymphocytes Percent Auto 37.7 % (20-40); Mean Corpuscular HGB Conc 33.8 g/dl (31.0-35.0); Mean Corpuscular Hemoglobin 31.3 pg (27.0-33.0); Mean Corpuscular Volume 92.6 fL (80.0-98.0); Monocytes Absolute Auto 1.2 X10*3/uL (0.1-1.2); Monocytes Percent Auto 16.8 % (2-11); Neutrophils Absolute Auto 2.8 x10*3/uL (2.0-8.3); Neutrophils Percent Auto 41.2 % (45-73); Platelet Count 287 X10*3/uL (160-400); Red Cell Distribution Width 13.1 % (11.0-16.0); White Blood Count 6.9 X10*3/uL (4.8-10.8)
[2024-01-17 06:51] LABS: Anion Gap 11 (12-20); Blood Urea Nitrogen 17 mg/dL (9-16); Calcium 8.6 mg/dL (8.4-10.2); Carbon Dioxide 26 mmol/L (22-29); Chloride 99 mmol/L (96-108); Estimated Glomerular Filt Rate > 60; Glucose Random 103 mg/dL (60-115); Sodium 132 mmol/L (135-145)
== END 2024-01-17 06:47 | disposition home or self-care (01) ==
LOC: HO.MMNH2L 06:46
PROVIDERS: Visit Provider Family Medicine
DX: R53.1 Weakness (principal); Z91.81 History of falling
CPT/HCPCS: 36415; 80048; 85025

== ENCOUNTER 2024-01-24 06:05 | Outpatient (REF) | payer MEDICARE, SELFPAY ==
[2024-01-24 05:59] LABS: MANUAL DIFF FLAG NO
[2024-01-24 07:02] LABS: Basophils Percent Auto 0.4 % (0-2); Eosinophils Absolute Auto 0.3 X10*3/uL (0.0-0.4); Eosinophils Percent Auto 3.4 % (0-4); Hematocrit 34.9 % (37.0-47.0); Hemoglobin 11.6 g/dl (12.0-16.0); Imm Gran Abs Auto 0.09 X10*3/uL (0.00-0.03); Imm Gran Pct Auto 1.1 % (0.0-0.4); Lymphocytes Absolute Auto 2.8 X10*3/uL (1.2-4.9); Lymphocytes Percent Auto 35.5 % (20-40); Mean Corpuscular HGB Conc 33.2 g/dl (31.0-35.0); Mean Corpuscular Hemoglobin 31.2 pg (27.0-33.0); Mean Corpuscular Volume 93.8 fL (80.0-98.0); Mean Platelet Volume 9.1 fL (9.4-12.3); Monocytes Absolute Auto 0.9 X10*3/uL (0.1-1.2); Neutrophils Absolute Auto 3.8 x10*3/uL (2.0-8.3); Neutrophils Percent Auto 48.6 % (45-73); Platelet Count 378 X10*3/uL (160-400); Red Blood Count 3.72 X10*6/uL (4.20-5.50); Red Cell Distribution Width 12.6 % (11.0-16.0); White Blood Count 7.8 X10*3/uL (4.8-10.8)
[2024-01-24 07:23] LABS: Anion Gap 10 (12-20); Blood Urea Nitrogen 17 mg/dL (9-16); Calcium 8.7 mg/dL (8.4-10.2); Carbon Dioxide 26 mmol/L (22-29); Chloride 104 mmol/L (96-108); Estimated Glomerular Filt Rate > 60; Glucose Random 100 mg/dL (60-115); Sodium 136 mmol/L (135-145)
== END 2024-01-24 06:06 | disposition home or self-care (01) ==
LOC: HO.MMNH2L 06:05
PROVIDERS: Visit Provider Family Medicine
DX: R53.1 Weakness (principal); Z91.81 History of falling
CPT/HCPCS: 36415; 80048; 85025

== ENCOUNTER 2024-01-31 05:47 | Outpatient (REF) | payer MEDICARE, SELFPAY ==
[2024-01-31 05:40] LABS: MANUAL DIFF FLAG NO
[2024-01-31 05:56] LABS: Basophils Percent Auto 0.4 % (0-2); Eosinophils Absolute Auto 0.3 X10*3/uL (0.0-0.4); Eosinophils Percent Auto 3.4 % (0-4); Hematocrit 36.6 % (37.0-47.0); Hemoglobin 11.9 g/dl (12.0-16.0); Imm Gran Abs Auto 0.07 X10*3/uL (0.00-0.03); Imm Gran Pct Auto 0.9 % (0.0-0.4); Lymphocytes Absolute Auto 2.6 X10*3/uL (1.2-4.9); Lymphocytes Percent Auto 33.3 % (20-40); Mean Corpuscular HGB Conc 32.5 g/dl (31.0-35.0); Mean Corpuscular Hemoglobin 30.8 pg (27.0-33.0); Mean Corpuscular Volume 94.8 fL (80.0-98.0); Monocytes Absolute Auto 0.9 X10*3/uL (0.1-1.2); Platelet Count 364 X10*3/uL (160-400); Red Blood Count 3.86 X10*6/uL (4.20-5.50); Red Cell Distribution Width 12.9 % (11.0-16.0); White Blood Count 7.9 X10*3/uL (4.8-10.8)
[2024-01-31 06:28] LABS: Anion Gap 11 (12-20); Blood Urea Nitrogen 19 mg/dL (9-16); Calcium 8.9 mg/dL (8.4-10.2); Carbon Dioxide 24 mmol/L (22-29); Chloride 104 mmol/L (96-108); Estimated Glomerular Filt Rate > 60; Glucose Random 114 mg/dL (60-115); Potassium 4.1 mmol/L (3.3-5.1); Sodium 135 mmol/L (135-145)
== END 2024-01-31 05:48 | disposition home or self-care (01) ==
LOC: HO.MMNH2L 05:47
PROVIDERS: Visit Provider Family Medicine
DX: R53.1 Weakness (principal)
CPT/HCPCS: 36415; 80048; 85025

== ENCOUNTER 2024-02-07 05:56 | Outpatient (REF) | payer MEDICARE, SELFPAY ==
[2024-02-07 05:45] LABS: MANUAL DIFF FLAG NO
[2024-02-07 06:17] LABS: Basophils Percent Auto 0.4 % (0-2); Eosinophils Absolute Auto 0.3 X10*3/uL (0.0-0.4); Eosinophils Percent Auto 3.4 % (0-4); Hematocrit 34.2 % (37.0-47.0); Hemoglobin 11.3 g/dl (12.0-16.0); Imm Gran Abs Auto 0.05 X10*3/uL (0.00-0.03); Imm Gran Pct Auto 0.7 % (0.0-0.4); Lymphocytes Absolute Auto 2.7 X10*3/uL (1.2-4.9); Lymphocytes Percent Auto 36.2 % (20-40); Mean Corpuscular Hemoglobin 31.1 pg (27.0-33.0); Mean Corpuscular Volume 94.2 fL (80.0-98.0); Mean Platelet Volume 9.2 fL (9.4-12.3); Monocytes Absolute Auto 0.7 X10*3/uL (0.1-1.2); Monocytes Percent Auto 9.3 % (2-11); Neutrophils Absolute Auto 3.7 x10*3/uL (2.0-8.3); Platelet Count 339 X10*3/uL (160-400); Red Blood Count 3.63 X10*6/uL (4.20-5.50); Red Cell Distribution Width 12.5 % (11.0-16.0); White Blood Count 7.3 X10*3/uL (4.8-10.8)
[2024-02-07 06:25] LABS: Anion Gap 9 (12-20); Blood Urea Nitrogen 15 mg/dL (9-16); Calcium 8.9 mg/dL (8.4-10.2); Carbon Dioxide 28 mmol/L (22-29); Chloride 102 mmol/L (96-108); Estimated Glomerular Filt Rate > 60; Glucose Random 105 mg/dL (60-115); Potassium 4.1 mmol/L (3.3-5.1); Sodium 135 mmol/L (135-145)
== END 2024-02-07 05:57 | disposition home or self-care (01) ==
LOC: HO.MMNH2L 05:56
PROVIDERS: Visit Provider Family Medicine
DX: R53.1 Weakness (principal); Z91.81 History of falling
CPT/HCPCS: 36415; 80048; 85025

== ENCOUNTER 2024-02-14 05:56 | Outpatient (REF) | payer MEDICARE, SELFPAY ==
[2024-02-14 05:50] LABS: MANUAL DIFF FLAG NO
[2024-02-14 06:37] LABS: Basophils Percent Auto 0.2 % (0-2); Eosinophils Absolute Auto 0.2 X10*3/uL (0.0-0.4); Eosinophils Percent Auto 1.6 % (0-4); Hematocrit 35.1 % (37.0-47.0); Hemoglobin 11.6 g/dl (12.0-16.0); Imm Gran Abs Auto 0.09 X10*3/uL (0.00-0.03); Imm Gran Pct Auto 0.9 % (0.0-0.4); Lymphocytes Percent Auto 29.5 % (20-40); Mean Corpuscular Volume 93.9 fL (80.0-98.0); Mean Platelet Volume 9.3 fL (9.4-12.3); Monocytes Absolute Auto 1.1 X10*3/uL (0.1-1.2); Monocytes Percent Auto 10.9 % (2-11); Neutrophils Absolute Auto 5.8 x10*3/uL (2.0-8.3); Neutrophils Percent Auto 56.9 % (45-73); Platelet Count 341 X10*3/uL (160-400); Red Blood Count 3.74 X10*6/uL (4.20-5.50); Red Cell Distribution Width 12.6 % (11.0-16.0); White Blood Count 10.2 X10*3/uL (4.8-10.8)
[2024-02-14 06:53] LABS: Anion Gap 12 (12-20); Blood Urea Nitrogen 17 mg/dL (9-16); Calcium 8.9 mg/dL (8.4-10.2); Carbon Dioxide 26 mmol/L (22-29); Chloride 100 mmol/L (96-108); Estimated Glomerular Filt Rate > 60; Glucose Random 119 mg/dL (60-115); Potassium 3.8 mmol/L (3.3-5.1); Sodium 134 mmol/L (135-145)
== END 2024-02-14 05:57 | disposition home or self-care (01) ==
LOC: HO.MMNH2L 05:56
PROVIDERS: Visit Provider Family Medicine
DX: R53.1 Weakness (principal); Z91.81 History of falling
CPT/HCPCS: 36415; 80048; 85025

== ENCOUNTER 2024-02-21 06:32 | Outpatient (REF) | payer MEDICARE, SELFPAY ==
[2024-02-21 06:20] LABS: MANUAL DIFF FLAG NO
[2024-02-21 07:14] LABS: Basophils Percent Auto 0.4 % (0-2); Eosinophils Absolute Auto 0.2 X10*3/uL (0.0-0.4); Eosinophils Percent Auto 2.7 % (0-4); Hematocrit 35.6 % (37.0-47.0); Hemoglobin 11.8 g/dl (12.0-16.0); Imm Gran Abs Auto 0.06 X10*3/uL (0.00-0.03); Imm Gran Pct Auto 0.7 % (0.0-0.4); Lymphocytes Absolute Auto 2.7 X10*3/uL (1.2-4.9); Lymphocytes Percent Auto 33.8 % (20-40); Mean Corpuscular HGB Conc 33.1 g/dl (31.0-35.0); Mean Corpuscular Volume 93.4 fL (80.0-98.0); Mean Platelet Volume 9.1 fL (9.4-12.3); Monocytes Absolute Auto 0.8 X10*3/uL (0.1-1.2); Monocytes Percent Auto 10.1 % (2-11); Neutrophils Absolute Auto 4.2 x10*3/uL (2.0-8.3); Neutrophils Percent Auto 52.3 % (45-73); Platelet Count 383 X10*3/uL (160-400); Red Blood Count 3.81 X10*6/uL (4.20-5.50); Red Cell Distribution Width 12.2 % (11.0-16.0); White Blood Count 8.1 X10*3/uL (4.8-10.8)
[2024-02-21 07:36] LABS: Anion Gap 16 (12-20); Blood Urea Nitrogen 16 mg/dL (9-16); Calcium 9.1 mg/dL (8.4-10.2); Carbon Dioxide 23 mmol/L (22-29); Chloride 101 mmol/L (96-108); Estimated Glomerular Filt Rate > 60; Glucose Random 108 mg/dL (60-115); Potassium 3.7 mmol/L (3.3-5.1); Sodium 136 mmol/L (135-145)
== END 2024-02-21 06:33 | disposition home or self-care (01) ==
LOC: HO.MMNH2L 06:32
PROVIDERS: Visit Provider Family Medicine
DX: R53.1 Weakness (principal); Z91.81 History of falling
CPT/HCPCS: 36415; 80048; 85025

== ENCOUNTER 2024-02-28 06:51 | Outpatient (REF) | payer MEDICARE, SELFPAY ==
[2024-02-28 06:07] LABS: MANUAL DIFF FLAG NO
[2024-02-28 07:06] LABS: Basophils Percent Auto 0.6 % (0-2); Eosinophils Absolute Auto 0.3 X10*3/uL (0.0-0.4); Eosinophils Percent Auto 3.9 % (0-4); Hematocrit 35.2 % (37.0-47.0); Hemoglobin 11.5 g/dl (12.0-16.0); Imm Gran Abs Auto 0.08 X10*3/uL (0.00-0.03); Imm Gran Pct Auto 1.1 % (0.0-0.4); Lymphocytes Absolute Auto 2.9 X10*3/uL (1.2-4.9); Lymphocytes Percent Auto 39.9 % (20-40); Mean Corpuscular HGB Conc 32.7 g/dl (31.0-35.0); Mean Corpuscular Hemoglobin 31.3 pg (27.0-33.0); Mean Corpuscular Volume 95.9 fL (80.0-98.0); Mean Platelet Volume 9.1 fL (9.4-12.3); Monocytes Absolute Auto 0.7 X10*3/uL (0.1-1.2); Monocytes Percent Auto 9.7 % (2-11); Neutrophils Absolute Auto 3.3 x10*3/uL (2.0-8.3); Neutrophils Percent Auto 44.8 % (45-73); Platelet Count 371 X10*3/uL (160-400); Red Blood Count 3.67 X10*6/uL (4.20-5.50); White Blood Count 7.2 X10*3/uL (4.8-10.8)
[2024-02-28 07:29] LABS: Anion Gap 13 (12-20); Blood Urea Nitrogen 18 mg/dL (9-16); Calcium 9.1 mg/dL (8.4-10.2); Carbon Dioxide 25 mmol/L (22-29); Chloride 103 mmol/L (96-108); Estimated Glomerular Filt Rate > 60; Glucose Random 104 mg/dL (60-115); Sodium 137 mmol/L (135-145)
== END 2024-02-28 06:52 | disposition home or self-care (01) ==
LOC: HO.MMNH2L 06:51
PROVIDERS: Visit Provider Family Medicine
DX: R53.1 Weakness (principal); Z91.81 History of falling
CPT/HCPCS: 36415; 80048; 85025

== ENCOUNTER 2024-03-06 05:57 | Outpatient (REF) | payer MEDICARE, SELFPAY ==
[2024-03-06 05:46] LABS: MANUAL DIFF FLAG NO
[2024-03-06 06:14] LABS: Basophils Percent Auto 0.3 % (0-2); Eosinophils Absolute Auto 0.2 X10*3/uL (0.0-0.4); Eosinophils Percent Auto 2.5 % (0-4); Hematocrit 36.4 % (37.0-47.0); Hemoglobin 11.9 g/dl (12.0-16.0); Imm Gran Abs Auto 0.07 X10*3/uL (0.00-0.03); Imm Gran Pct Auto 0.8 % (0.0-0.4); Lymphocytes Absolute Auto 2.8 X10*3/uL (1.2-4.9); Lymphocytes Percent Auto 32.4 % (20-40); Mean Corpuscular HGB Conc 32.7 g/dl (31.0-35.0); Mean Corpuscular Hemoglobin 31.2 pg (27.0-33.0); Mean Corpuscular Volume 95.5 fL (80.0-98.0); Mean Platelet Volume 9.2 fL (9.4-12.3); Monocytes Absolute Auto 0.9 X10*3/uL (0.1-1.2); Monocytes Percent Auto 10.3 % (2-11); Neutrophils Absolute Auto 4.6 x10*3/uL (2.0-8.3); Neutrophils Percent Auto 53.7 % (45-73); Platelet Count 311 X10*3/uL (160-400); Red Blood Count 3.81 X10*6/uL (4.20-5.50); Red Cell Distribution Width 13.2 % (11.0-16.0); White Blood Count 8.7 X10*3/uL (4.8-10.8)
[2024-03-06 06:51] LABS: Anion Gap 16 (12-20); Blood Urea Nitrogen 21 mg/dL (9-16); Calcium 9.1 mg/dL (8.4-10.2); Carbon Dioxide 23 mmol/L (22-29); Chloride 103 mmol/L (96-108); Estimated Glomerular Filt Rate > 60; Glucose Random 100 mg/dL (60-115); Potassium 3.8 mmol/L (3.3-5.1); Sodium 138 mmol/L (135-145)
== END 2024-03-06 05:58 | disposition home or self-care (01) ==
LOC: HO.MMNH2L 05:57
PROVIDERS: Visit Provider Family Medicine
DX: R53.1 Weakness (principal); Z91.81 History of falling
CPT/HCPCS: 36415; 80048; 85025

== ENCOUNTER 2024-03-14 05:55 | Outpatient (REF) | payer MEDICARE, SELFPAY ==
[2024-03-14 05:51] LABS: MANUAL DIFF FLAG NO
[2024-03-14 06:35] LABS: Basophils Percent Auto 0.4 % (0-2); Eosinophils Absolute Auto 0.3 X10*3/uL (0.0-0.4); Eosinophils Percent Auto 3.9 % (0-4); Hematocrit 33.3 % (37.0-47.0); Hemoglobin 10.8 g/dl (12.0-16.0); Imm Gran Abs Auto 0.04 X10*3/uL (0.00-0.03); Imm Gran Pct Auto 0.6 % (0.0-0.4); Lymphocytes Absolute Auto 2.7 X10*3/uL (1.2-4.9); Lymphocytes Percent Auto 37.7 % (20-40); Mean Corpuscular HGB Conc 32.4 g/dl (31.0-35.0); Mean Corpuscular Hemoglobin 30.8 pg (27.0-33.0); Mean Corpuscular Volume 94.9 fL (80.0-98.0); Mean Platelet Volume 9.4 fL (9.4-12.3); Monocytes Absolute Auto 0.8 X10*3/uL (0.1-1.2); Monocytes Percent Auto 11.1 % (2-11); Neutrophils Absolute Auto 3.4 x10*3/uL (2.0-8.3); Neutrophils Percent Auto 46.3 % (45-73); Platelet Count 354 X10*3/uL (160-400); Red Blood Count 3.51 X10*6/uL (4.20-5.50); Red Cell Distribution Width 13.1 % (11.0-16.0); White Blood Count 7.3 X10*3/uL (4.8-10.8)
[2024-03-14 07:11] LABS: Anion Gap 14 (12-20); Blood Urea Nitrogen 22 mg/dL (9-16); Calcium 9.1 mg/dL (8.4-10.2); Carbon Dioxide 24 mmol/L (22-29); Chloride 103 mmol/L (96-108); Estimated Glomerular Filt Rate > 60; Glucose Random 105 mg/dL (60-115); Potassium 3.9 mmol/L (3.3-5.1); Sodium 137 mmol/L (135-145)
== END 2024-03-14 05:56 | disposition home or self-care (01) ==
LOC: HO.MMNH2L 05:55
PROVIDERS: Visit Provider Family Medicine
DX: R53.1 Weakness (principal); Z91.81 History of falling
CPT/HCPCS: 36415; 80048; 85025

== ENCOUNTER 2025-01-02 12:35 | Outpatient (REF) | payer MEDICARE, SELFPAY ==
[2025-01-02 12:54] LABS: Appearance Urine Clear; Color Urine Yellow; Glucose Urine UA Negative (Negative); Leukocyte Esterase Urine Negative (Negative); Nitrite Urine Negative (Negative); PH 5.5 (5.0-9.0); Specific Gravity - Urine 1.025 (1.005-1.025); Urine Blood Negative (Negative); Urine Ketones Negative (Negative); Urine Protein Trace mg/dL (Neg-Trace)
== END 2025-01-02 12:36 | disposition home or self-care (01) ==
LOC: HO.MMNH3L 12:35
PROVIDERS: Visit Provider Family Medicine
DX: Z13.89 Encounter for screening for other disorder (principal)
CPT/HCPCS: 81003; 87086

== ENCOUNTER 2025-07-27 05:41 | Outpatient (REF) | payer MEDICARE, SELFPAY ==
[2025-07-27 05:44] LABS: MANUAL DIFF FLAG NO
[2025-07-27 06:24] LABS: Alanine Aminotransferase 13 U/L (0-31); Albumin Level 3.7 g/dL (3.5-5.0); Alkaline Phosphatase 75 U/L (39-117); Anion Gap 11 (12-20); Aspartate Amino Transferase 19 U/L (5-31); Blood Urea Nitrogen 23 mg/dL (9-16); Calcium 9.3 mg/dL (8.4-10.2); Carbon Dioxide 24 mmol/L (22-29); Chloride 106 mmol/L (96-108); Estimated Glomerular Filt Rate > 60; Potassium 4.3 mmol/L (3.3-5.1); Sodium 137 mmol/L (135-145); Total Protein 7.0 g/dL (6.5-8.0)
[2025-07-27 06:39] LABS: NT Pro B Type Natriuretic Pept 133.8 pg/mL (<300)
[2025-07-27 06:42] LABS: Hematocrit 36.1 % (37.0-47.0); Hemoglobin 11.5 g/dl (12.0-16.0); Imm Gran Abs Auto 0.03 X10*3/uL (0.00-0.03); Imm Gran Pct Auto 0.4 % (0.0-0.4); Lymphocytes Absolute Auto 3.2 X10*3/uL (1.2-4.9); Mean Corpuscular HGB Conc 31.9 g/dl (31.0-35.0); Mean Corpuscular Hemoglobin 31.1 pg (27.0-33.0); Mean Corpuscular Volume 97.6 fL (80.0-98.0); NRBC Abs Auto 0.000 X10*3/uL (0.0-0.012); NRBC Pct Auto 0.0 /100WBC (0.0-0.2); Platelet Count 338 X10*3/uL (160-400); Red Blood Count 3.70 X10*6/uL (4.20-5.50); White Blood Count 6.7 X10*3/uL (4.8-10.8)
== END 2025-07-27 05:42 | disposition home or self-care (01) ==
LOC: HO.MMNH3L 05:41
PROVIDERS: Visit Provider Physician Assistant Medical
DX: R53.1 Weakness (principal)
CPT/HCPCS: 36415; 80053; 83880; 85025